=== PATIENT | female | born 2005 | race Hispanic/Latino ===

== ENCOUNTER 2024-03-07 18:14 | Inpatient (IN) | payer BC, OTHER ==
--- OUTSIDE RECORDS SUMMARY | 2024-03-07 18:45 | XMS REPORT | Continuity of Care Document ---
Author Name Unknown Address [address] [facility]. [address] [place] [address] [facility] Address [address] [facility] [address] [place] [address] Care Team Providers Care [employer] Name Role Phone JAMAL HOLCOMB Primary Care Physician Unavailab DAYAN Monzon Attending Clinician Unavailable JAMAL HOLCOMB Attending Clinician Unavailable RADHA TADEO Attending Clinician RADHA Wood Attending Clinician NICOLE Layton Attending Clinician UnavailNICOLE Sanders Attending Clinician UnavailJamal Schroeder Attending Clinician [phone] Dayan Haque MD Attending Clinician [phone] Doctor Unassigned, [place] Attending Clinician U navailable Pob, [facility] Main Attending Clinician UnavailAl Torres MD Attending Clinician [phone] AL PERKINS Attending Clinician Unavailcharly miranda Nurse, [facility] Fam Attending Clinician Unavailable Lab, Ang - Db Attending Clinician Unavailable JESSA FARIAS Attending Clinician Unavailable Jessa Farias PA-C Attending Clinician [phone] JEFFY URENA Attending Clinician Unavailable 2, [facility] Attending Clinician Unavailable Jeffy Salcedo Attending Clinician [phone] [facility] Attending Clinician Unavailable DAYAN HAQUE Admitting Clinician Unavailable Dayan Haque MD Admitting Clinician AL PERKINS Admitting Clinician UnavailJAMAL Lawrence Admitting Clinician Unavailable Payers Payer Name Policy Type Policy Number Effective Date Expirati on Date Source FORMERLY [facility] OUT OF STATE [id number] 2013 00:00:00 Problems Condition Name Condition Details Condition Category Status Onset Date Resolution Date Last Treatment Date Treating Clinician Comments Source Diarrhea, unspecifie d type Diarrhea, unspecifie d type Disease Active 10-07 00:00: 00 [facility] Abdominal pain, generalize d Abdominal pain, generalize d Disease Active 10-07 00:00: 00 [facility] Mixed dyslipidem ia Mixed dyslipidem ia Disease Active 12-27 00:00: 00 [facility] Obesity (BMI 35.0-39.9 without comorbidit y) Obesity (BMI 35.0-39.9 without comorbidit y) Disease Active 12-27 00:00: 00 [facility] Anxiety and depression Anxiety and depression Disease Active 12-27 00:00: 00 [facility] Elevated blood pressure reading Elevated blood pressure reading Disease Active 12-27 00:00: 00 [facility] Tachycardi a Tachycardi a Disease Active 12-27 00:00: 00 [facility] Allergies, Adverse Reactions, Alerts Allergy Name Allergy Type Status Severity Reaction(s) Onset Date Inactive Date Treating Clinician Comments Source NO KNOWN ALLERGIE S Drug Class Active [facility] Social History Social Habit Start Date Stop Date Quantity Comments Source Gender identity [facility] function 2023-12-22 00:00:00 2023-12-22 00:00:00 [facility] Alcohol intake 2023-11-17 00:00:00 2023-11-17 00:00:00 Lifetime non-drinker (finding) [facility] Exposure to SARS-CoV-2 (event) 2023-03-25 00:00:00 2023-04-04 14:41:00 Not sure [facility] History SDOH Alcohol Frequency 2023-04-04 00:00:00 2023-04-04 00:00:00 1 [facility] History SDOH Alcohol Std Drinks 2023-04-04 00:00:00 2023-04-04 00:00:00 0 [facility] SDOH Alcohol Binge 2023-04-04 00:00:00 2023-04-04 00:00:00 1 [facility] SDOH Social Connections Phone 2023-04-04 00:00:00 2023-04-04 00:00:00 5 [facility] SDOH Social Connections Get Together 2023-04-04 00:00:00 2023-04-04 00:00:00 5 [facility] SDOH Social Connections Sikhism 2023-04-04 00:00:00 2023-04-04 00:00:00 1 [facility] SDOH Social Connections Membership 2023-04-04 00:00:00 2023-04-04 00:00:00 2 [facility] SDOH Social Connections Meetings 2023-04-04 00:00:00 2023-04-04 00:00:00 98 [facility] SDOH Social Connections Living 2023-04-04 00:00:00 2023-04-04 00:00:00 98 [facility] SDOH Physical Activity DPW 2023-04-04 00:00:00 2023-04-04 00:00:00 5 [facility] SDOH Physical Activity MPS 2023-04-04 00:00:00 2023-04-04 00:00:00 4 [facility] SDOH Stress 2023-04-04 00:00:00 2023-04-04 00:00:00 3 [facility] SDOH Financial 2023-04-04 00:00:00 2023-04-04 00:00:00 5 [facility] SDOH Food Worry 2023-04-04 00:00:00 2023-04-04 00:00:00 1 [facility] History SDOH Food Scarcity 2023-04-04 00:00:00 2023-04-04 00:00:00 1 [facility] History SDOH Transport Med 2023-04-04 00:00:00 2023-04-04 00:00:00 2 [facility] History SDOH Transport Non-Med 2023-04-04 00:00:00 2023-04-04 00:00:00 2 [facility] History SDOH Housing Unable to Pay 2023-04-04 00:00:00 2023-04-04 00:00:00 2 [facility] History SDOH Housing Places Lived 2023-04-04 00:00:00 2023-04-04 00:00:00 1 [facility] History SDOH Housing Homeless Last Year 2023-04-04 00:00:00 2023-04-04 00:00:00 2 [facility] Tobacco use and exposure 2022-12-11 00:00:00 2022-12-11 00:00:00 Smokeless tobacco non-user [facility] Tobacco Comment 2022-12-11 00:00:00 2022-12-11 00:00:00 Patient states she vapes everyday [facility] Sex Assigned At 2005 00:00:00 2005 00:00:00 [facility] Smoking Status Start Date Stop Date Source Never smoked tobacco [facility] Medications Ordered Medication Name Filled Medication Name Start Date Stop Date Current Medication? Ordering Clinician Indication Dosage Frequency Signature (SIG) Comments Components Source propranoloL 10 mg tablet 01-05 00:00: 00 Yes [id number] 10mg Take 1 tablet by mouth in the morning and 1 tablet in the evening. [facility] simethicone (GAS RELIEF (SIMETHICON E)) 40 mg/0.6 mL drops 12-21 12:06: 00 12-21 12:57 :45 No PRN, Starting on Fri12/22/23 at 0706, Until Fri12/22/23 at 0757, Routine, Intra-op [facility] SERTraline (ZOLOFT) 100 mg tablet - 00:00: 00 Yes [id number] 100mg Take 1 tablet by mouth in the morning. [facility] topiramate 50 mg tablet 11-17 00:00: 00 Yes [id number] 50mg Take 1 tablet by mouth every morning. [facility] busPIRone 10 mg tablet 11-17 00:00: 00 Yes [id number] 10mg Take 1 tablet by mouth every morning and evening. [facility] propranoloL 10 mg tablet 11-17 00:00: 00 01-05 00:00 :00 No [id number] 10mg Take 1 tablet by mouth in the morning and 1 tablet in the evening. [facility] BUSPIRONE 10 mg tablet 10-09 00:00: 00 11-17 00:00 :00 No [id number] 10mg TAKE 1 TABLET BY MOUTH IN THE MORNING AND IN THE EVENING [facility] peg-electro lyte soln 236-22.74-6 .74 -5.86 gram solution 10-07 00:00: 00 12-21 00:00 :00 No [id number] 4000mL Take 4,000 mL by mouth SEE-INSTRU CTIONS. As directed prior to your colonoscop y. [facility] gadobenate dimeglumine (MULTIHANCE -15 mL) injection 0.2 mL/kg 2022-10 14:45: 00 10-03 14:37 :00 No [id number] .2mL/kg 0.2 mL/kg, Intravenou s, ONCE, 1 dose, On Fri10/03/23 at 0845, Routine [facility] busPIRone 10 mg tablet 2022-10 00:00: 00 10-09 00:00 :00 No [id number] 10mg Take 1 tablet by mouth in the morning and 1 tablet in the evening. [facility] gadoteridol (PROHANCE-2 0 mL) injection 0.2 mL/kg 2022-10 18:00: 00 09-09 17:59 :00 No [id number] .2mL/kg 0.2 mL/kg, Intravenou s, ONCE, 1 dose, On Fri09/09/23 at 1200, Routine [facility] gadobenate dimeglumine (MULTIHANCE -20 mL) injection 0.2 mL/kg 2022-10 18:15: 00 09-03 18:08 :00 No [id number] .2mL/kg 0.2 mL/kg, Intravenou s, ONCE, 1 dose, On Fri09/03/23 at 1215, Routine [facility] glucagon (GLUCAGEN DIAGNOSTIC KIT) injection 1 mg 2022-10 17:00: 00 09-03 17:44 :00 No [id number] 1mg 1 mg, Intravenou s, ONCE, 1 dose, On Fri09/03/23 at 1100, Routine [facility] propranoloL 10 mg tablet 2022-10 1-14 00:00: 00 11-17 00:00 :00 No [id number] 10mg Take 1 tablet by mouth in the morning and 1 tablet in the evening. [facility] busPIRone 10 mg tablet 9-20 00:00: 00 09-09 00:00 :00 No [id number] 10mg Take 1 tablet by mouth in the morning and 1 tablet in the evening. [facility] busPIRone 10 mg tablet 8-17 00:00: 00 06-25 00:00 :00 No [id number] 10mg Take 1 tablet by mouth in the morning and 1 tablet in the evening. [facility] topiramate 50 mg tablet 8-11 00:00: 00 11-17 00:00 :00 No [id number] 50mg Take 1 tablet by mouth every morning. [facility] SERTraline (ZOLOFT) 100 mg tablet 8-11 00:00: 00 11-17 00:00 :00 No [id number] 100mg Take 1 tablet by mouth in the morning. [facility] propranoloL 10 mg tablet 8-11 00:00: 00 08-19 00:00 :00 No [id number] 10mg Take 1 tablet by mouth in the morning and 1 tablet in the evening. [facility] busPIRone 10 mg tablet -15 00:00: 00 05-22 00:00 :00 No [id number] 10mg Take 1 tablet by mouth in the morning and 1 tablet in the evening. [facility] naltrexone- bupropion (CONTRAVE) 8-90 mg per tablet 30 00:00: 00 05-16 00:00 :00 No [id number] Start 1 tab PO Q AM x1 week, then 1 tab PO BID x1 week, then 2 tabs PO Q AM and 1 Tab QPM thereafter [facility] NUVARING 0.12-0.015 mg/24 hr vaginal insert 29 00:00: 00 11-17 00:00 :00 No [id number] 1{each} Insert 1 Each into vagina once every month. Insert vaginally and leave in place for 3 consecutiv e weeks, then remove for 1 week. [facility] SERTraline 50 mg tablet 14 00:00: 00 05-16 00:00 :00 No [id number] 50mg Take 1 tablet by mouth every morning. MUST BE SEEN FOR FURTHER REFILLS [facility] busPIRone 10 mg tablet 14 00:00: 00 04-19 00:00 :00 No [id number] 10mg Take 1 tablet by mouth in the morning and 1 tablet in the evening. [facility] propranoloL 10 mg tablet 17 00:00: 00 05-16 00:00 :00 No [id number] 10mg Take 1 tablet by mouth in the morning and 1 tablet in the evening. [facility] TOPIRAMATE 50 mg tablet 15 00:00: 00 05-16 00:00 :00 No [id number] TAKE 1 TABLET BY MOUTH EVERY DAY IN THE MORNING [facility] busPIRone 10 mg tablet 2023-0 5-11 00:00: 00 03-19 00:00 :00 No [id number] 10mg Take 1 tablet by mouth in the morning and 1 tablet in the evening. [facility] semaglutide , weight loss, (WEGOVY) 0.5 mg/0.5 mL PnIj SC injection 01-28 00:00: 00 04-04 00:00 :00 No [id number] .5mg inject 0.5 mg under the skin weekly. [facility] propranoloL 10 mg tablet 01-26 00:00: 00 02-19 00:00 :00 No [id number] 10mg Take 1 tablet by mouth in the morning and 1 tablet in the evening. [facility] SERTraline 50 mg tablet 01-03 00:00: 00 03-19 00:00 :00 No [id number] 50mg Take 1 tablet by mouth every morning. [facility] azithromyci n 500 mg tablet 01-03 00:00: 00 01-05 04:59 :00 No [id number] 1000mg Take 2 tablets by mouth in the morning for 1 day. [facility] NUVARING 0.12-0.015 mg/24 hr vaginal insert 01-02 00:00: 00 04-03 00:00 :00 No [id number] 1{each} Insert 1 Each into vagina once every month. Insert vaginally and leave in place for 3 consecutiv e weeks, then remove for 1 week. [facility] topiramate (TOPAMAX) 50 mg tablet 12-27 00:00: 00 02-17 00:00 :00 No [id number] 50mg Take 1 tablet by mouth in the morning. [facility] semaglutide , weight loss, (WEGOVY) 0.25 mg/0.5 mL PnIj SC injection 12-27 00:00: 00 01-28 00:00 :00 No [id number] .25mg inject 0.25 mg under the skin weekly. [facility] propranoloL 10 mg tablet 3-24 00:00: 00 01-26 00:00 :00 No [id number] 10mg Take 1 tablet by mouth in the morning and 1 tablet in the evening. [facility] SERTRALINE 50 mg tablet 3-06 00:00: 00 01-03 00:00 :00 No [id number] TAKE 1 TABLET BY MOUTH EVERY DAY IN THE MORNING [facility] dicyclomine 20 mg tablet 2-10 00:00: 00 Yes [id number] 20mg Take 1 tablet by mouth 3 (three) times daily as needed for Abdominal pain. [facility] busPIRone 10 mg tablet 2-10 00:00: 00 12-31 04:59 :00 No [id number] 10mg Take 1 tablet by mouth in the morning and 1 tablet in the evening. Do all this for 45 days. [facility] SERTraline (ZOLOFT) 50 mg tablet -10 00:00: 00 12-09 00:00 :00 No [id number] 50mg Take 1 tablet by mouth in the morning. [facility] Immunizations Ordered Immunization Name Filled Immunization Name Date Status Comments Source Influenza Virus Vaccine Quad IM, Preserv and ABX Free 6 MO-64 YRS 2022-11-15 00:00:00 Completed [facility] Influenza Virus Vaccine Quad IM, Preserv and ABX Free 6 MO-64 YRS 2022-11-15 00:00:00 Completed [facility] Influenza Virus Vaccine Quad IM, Preserv and ABX Free 6 MO-64 YRS 2022-11-15 00:00:00 Completed [facility] Influenza Virus Vaccine Quad IM, Preserv and ABX Free 6 MO-64 YRS 2022-11-15 00:00:00 Completed [facility] Influenza Virus Vaccine Quad IM, Preserv and ABX Free 6 MO-64 YRS 2022-11-15 00:00:00 Completed [facility] Influenza Virus Vaccine Quad IM, Preserv and ABX Free 6 MO-64 YRS 2022-11-15 00:00:00 Completed [facility] Influenza Virus Vaccine Quad IM, Preserv and ABX Free 6 MO-64 YRS 2022-11-15 00:00:00 Completed [facility] Influenza Virus Vaccine Quad IM, Preserv and ABX Free 6 MO-64 YRS 2022-11-15 00:00:00 Completed [facility] Influenza Virus Vaccine Quad IM, Preserv and ABX Free 6 MO-64 YRS 2022-11-15 00:00:00 Completed [facility] Influenza Virus Vaccine Quad IM, Preserv and ABX Free 6 MO-64 YRS 2022-11-15 00:00:00 Completed [facility] Influenza Virus Vaccine Quad IM, Preserv and ABX Free 6 MO-64 YRS 2022-11-15 00:00:00 Completed [facility] Influenza Virus Vaccine Quad IM, Preserv and ABX Free 6 MO-64 YRS 2022-11-15 00:00:00 Completed [facility] Influenza Virus Vaccine Quad IM, Preserv and ABX Free 6 MO-64 YRS 2022-11-15 00:00:00 Completed [facility] Influenza Virus Vaccine Quad IM, Preserv and ABX Free 6 MO-64 YRS 2022-11-15 00:00:00 Completed [facility] Influenza Virus Vaccine Quad IM, Preserv and ABX Free 6 MO-64 YRS 2022-11-15 00:00:00 Completed [facility] Influenza Virus Vaccine Quad IM, Preserv and ABX Free 6 MO-64 YRS 2022-11-15 00:00:00 Completed [facility] Influenza Virus Vaccine Quad IM, Preserv and ABX Free 6 MO-64 YRS 2022-11-15 00:00:00 Completed [facility] Influenza Virus Vaccine Quad IM, Preserv and ABX Free 6 MO-64 YRS 2022-11-15 00:00:00 Completed [facility] Influenza Virus Vaccine Quad IM, Preserv and ABX Free 6 MO-64 YRS 2022-11-15 00:00:00 Completed [facility] Influenza Virus Vaccine Quad IM, Preserv and ABX Free 6 MO-64 YRS 2022-11-15 00:00:00 Completed [facility] Influenza Virus Vaccine Quad IM, Preserv and ABX Free 6 MO-64 YRS 2022-11-15 00:00:00 Completed [facility] Influenza Virus Vaccine Quad IM, Preserv and ABX Free 6 MO-64 YRS 2022-11-15 00:00:00 Completed [facility] Influenza Virus Vaccine Quad IM, Preserv and ABX Free 6 MO-64 YRS 2022-11-15 00:00:00 Completed [facility] Influenza Virus Vaccine Quad IM, Preserv and ABX Free 6 MO-64 YRS 2022-11-15 00:00:00 Completed [facility] Influenza Virus Vaccine Quad IM, Preserv and ABX Free 6 MO-64 YRS (FLUCELVAX) 2022-11-15 00:00:00 Completed [facility] Influenza Virus Vaccine Quad IM, Preserv and ABX Free 6 MO-64 YRS 2022-11-15 00:00:00 Completed [facility] Influenza Virus Vaccine Quad IM, Preserv and ABX Free 6 MO-64 YRS 2022-11-15 00:00:00 Completed [facility] Influenza Virus Vaccine Quad IM, Preserv and ABX Free 6 MO-64 YRS 2022-11-15 00:00:00 Completed [facility] Influenza Virus Vaccine Quad IM, Preserv and ABX Free 6 MO-64 YRS 2022-11-15 00:00:00 Completed [facility] Influenza Virus Vaccine Quad IM, Preserv and ABX Free 6 MO-64 YRS 2022-11-15 00:00:00 Completed [facility] Influenza Virus Vaccine Quad IM, Preserv and ABX Free 6 MO-64 YRS 2022-11-15 00:00:00 Completed [facility] Influenza Virus Vaccine Quad IM, Preserv and ABX Free 6 MO-64 YRS 2022-11-15 00:00:00 Completed [facility] Influenza Virus Vaccine Quad IM, Preserv and ABX Free 6 MO-64 YRS 2022-11-15 00:00:00 Completed [facility] Influenza Virus Vaccine Quad IM, Preserv and ABX Free 6 MO-64 YRS 2022-11-15 00:00:00 Completed [facility] Influenza Virus Vaccine Quad IM, Preserv and ABX Free 6 MO-64 YRS 2022-11-15 00:00:00 Completed [facility] Influenza Virus Vaccine Quad IM, Preserv and ABX Free 6 MO-64 YRS 2022-11-15 00:00:00 Completed [facility] Influenza Virus Vaccine Quad IM, Preserv and ABX Free 6 MO-64 YRS 2022-11-15 00:00:00 Completed [facility] Influenza Virus Vaccine Quad IM, Preserv and ABX Free 6 MO-64 YRS 2022-11-15 00:00:00 Completed [facility] Influenza Virus Vaccine Quad IM, Preserv and ABX Free 6 MO-64 YRS 2022-11-15 00:00:00 Completed [facility] Influenza Virus Vaccine Quad IM, Preserv and ABX Free 6 MO-64 YRS 2022-11-15 00:00:00 Completed [facility] Influenza Virus Vaccine Quad IM, Preserv and ABX Free 6 MO-64 YRS 2022-11-15 00:00:00 Completed [facility] Influenza Virus Vaccine Quad IM, Preserv and ABX Free 6 MO-64 YRS 2022-11-15 00:00:00 Completed [facility] Influenza Virus Vaccine Quad IM, Preserv and ABX Free 6 MO-64 YRS 2022-11-15 00:00:00 Completed [facility] Influenza Virus Vaccine Quad IM, Preserv and ABX Free 6 MO-64 YRS 2022-11-15 00:00:00 Completed [facility] SARS-COV-2 COVID-19 PFIZER VACCINE 2021-09-25 00:00:00 Completed [facility] SARS-COV-2 COVID-19 PFIZER VACCINE 2021-09-25 00:00:00 Completed [facility] SARS-COV-2 COVID-19 PFIZER VACCINE 2021-09-25 00:00:00 Completed [facility] SARS-COV-2 COVID-19 PFIZER VACCINE 2021-09-25 00:00:00 Completed [facility] SARS-COV-2 COVID-19 PFIZER VACCINE 2021-09-25 00:00:00 Completed [facility] SARS-COV-2 COVID-19 PFIZER VACCINE 2021-09-25 00:00:00 Completed [facility] SARS-COV-2 COVID-19 PFIZER VACCINE 2021-09-25 00:00:00 Completed [facility] SARS-COV-2 COVID-19 PFIZER VACCINE 2021-09-25 00:00:00 Completed [facility] SARS-COV-2 COVID-19 PFIZER VACCINE 2021-09-25 00:00:00 Completed [facility] SARS-COV-2 COVID-19 PFIZER VACCINE 2021-09-25 00:00:00 Completed [facility] SARS-COV-2 COVID-19 PFIZER VACCINE 2021-09-25 00:00:00 Completed [facility] SARS-COV-2 COVID-19 PFIZER VACCINE 2021-09-25 00:00:00 Completed [facility] SARS-COV-2 COVID-19 PFIZER VACCINE 2021-09-25 00:00:00 Completed [facility] SARS-COV-2 COVID-19 PFIZER VACCINE 2021-09-25 00:00:00 Completed [facility] SARS-COV-2 COVID-19 PFIZER VACCINE 2021-09-25 00:00:00 Completed [facility] SARS-COV-2 COVID-19 PFIZER VACCINE 2021-09-25 00:00:00 Completed [facility] SARS-COV-2 COVID-19 PFIZER VACCINE 2021-09-25 00:00:00 Completed [facility] SARS-COV-2 COVID-19 PFIZER VACCINE 2021-09-25 00:00:00 Completed [facility] SARS-COV-2 COVID-19 PFIZER VACCINE 2021-09-25 00:00:00 Completed [facility] SARS-COV-2 COVID-19 PFIZER VACCINE 2021-09-25 00:00:00 Completed [facility] SARS-COV-2 COVID-19 PFIZER VACCINE 2021-09-25 00:00:00 Completed [facility] SARS-COV-2 COVID-19 PFIZER VACCINE 2021-09-25 00:00:00 Completed [facility] SARS-COV-2 COVID-19 PFIZER VACCINE 2021-09-25 00:00:00 Completed [facility] SARS-COV-2 COVID-19 PFIZER VACCINE 2021-09-25 00:00:00 Completed [facility] SARS-COV-2 COVID-19 PFIZER VACCINE 2021-09-25 00:00:00 Completed [facility] SARS-COV-2 COVID-19 PFIZER VACCINE 2021-09-25 00:00:00 Completed [facility] SARS-COV-2 COVID-19 PFIZER VACCINE 2021-09-25 00:00:00 Completed [facility] SARS-COV-2 COVID-19 PFIZER VACCINE 2021-09-25 00:00:00 Completed [facility] SARS-COV-2 COVID-19 PFIZER VACCINE 2021-09-25 00:00:00 Completed [facility] SARS-COV-2 COVID-19 PFIZER VACCINE 2021-09-25 00:00:00 Completed [facility] SARS-COV-2 COVID-19 PFIZER VACCINE 2021-09-25 00:00:00 Completed [facility] SARS-COV-2 COVID-19 PFIZER VACCINE 2021-09-25 00:00:00 Completed [facility] SARS-COV-2 COVID-19 PFIZER VACCINE 2021-09-25 00:00:00 Completed [facility] SARS-COV-2 COVID-19 PFIZER VACCINE 2021-09-25 00:00:00 Completed [facility] SARS-COV-2 COVID-19 PFIZER VACCINE 2021-09-25 00:00:00 Completed [facility] SARS-COV-2 COVID-19 PFIZER VACCINE 2021-09-25 00:00:00 Completed [facility] SARS-COV-2 COVID-19 PFIZER VACCINE 2021-09-25 00:00:00 Completed [facility] SARS-COV-2 COVID-19 PFIZER VACCINE 2021-09-25 00:00:00 Completed [facility] SARS-COV-2 COVID-19 PFIZER VACCINE 2021-09-25 00:00:00 Completed [facility] SARS-COV-2 COVID-19 PFIZER VACCINE 2021-09-25 00:00:00 Completed [facility] SARS-COV-2 COVID-19 PFIZER VACCINE 2021-09-25 00:00:00 Completed [facility] SARS-COV-2 COVID-19 PFIZER VACCINE 2021-09-25 00:00:00 Completed [facility] SARS-COV-2 COVID-19 PFIZER VACCINE 2021-09-25 00:00:00 Completed [facility] SARS-COV-2 COVID-19 PFIZER VACCINE 2021-09-25 00:00:00 Completed [facility] Influenza Virus Vaccine Quad .5 mL IM 6+ MO 2021-08-25 00:00:00 Completed [facility] Influenza Virus Vaccine Quad .5 mL IM 6+ MO 2021-08-25 00:00:00 Completed [facility] Influenza Virus Vaccine Quad .5 mL IM 6+ MO 2021-08-25 00:00:00 Completed [facility] Influenza Virus Vaccine Quad .5 mL IM 6+ MO 2021-08-25 00:00:00 Completed [facility] Influenza Virus Vaccine Quad .5 mL IM 6+ MO 2021-08-25 00:00:00 Completed [facility] Influenza Virus Vaccine Quad .5 mL IM 6+ MO 2021-08-25 00:00:00 Completed [facility] Influenza Virus Vaccine Quad .5 mL IM 6+ MO 2021-08-25 00:00:00 Completed [facility] Influenza Virus Vaccine Quad .5 mL IM 6+ MO 2021-08-25 00:00:00 Completed [facility] Influenza Virus Vaccine Quad .5 mL IM 6+ MO 2021-08-25 00:00:00 Completed [facility] Influenza Virus Vaccine Quad .5 mL IM 6+ MO 2021-08-25 00:00:00 Completed [facility] Influenza Virus Vaccine Quad .5 mL IM 6+ MO 2021-08-25 00:00:00 Completed [facility] Influenza Virus Vaccine Quad .5 mL IM 6+ MO 2021-08-25 00:00:00 Completed [facility] Influenza Virus Vaccine Quad .5 mL IM 6+ MO 2021-08-25 00:00:00 Completed [facility] [facility] Influenza Virus Vaccine Quad .5 mL IM 6+ MO 2021-08-25 00:00:00 Completed [facility] Influenza Virus Vaccine Quad .5 mL IM 6+ MO 2021-08-25 00:00:00 Completed [facility] Influenza Virus Vaccine Quad .5 mL IM 6+ MO 2021-08-25 00:00:00 Completed [facility] Influenza Virus Vaccine Quad .5 mL IM 6+ MO 2021-08-25 00:00:00 Completed [facility] Influenza Virus Vaccine Quad .5 mL IM 6+ MO 2021-08-25 00:00:00 Completed [facility] Influenza Virus Vaccine Quad .5 mL IM 6+ MO 2021-08-25 00:00:00 Completed [facility] Influenza Virus Vaccine Quad .5 mL IM 6+ MO 2021-08-25 00:00:00 Completed [facility] Influenza Virus Vaccine Quad .5 mL IM 6+ MO 2021-08-25 00:00:00 Completed [facility] Influenza Virus Vaccine Quad .5 mL IM 6+ MO 2021-08-25 00:00:00 Completed [facility] Influenza Virus Vaccine Quad .5 mL IM 6+ MO 2021-08-25 00:00:00 Completed [facility] Influenza Virus Vaccine Quad .5 mL IM 6+ MO 2021-08-25 00:00:00 Completed [facility] Influenza Virus Vaccine Quad .5 mL IM 6+ MO (FLUZONE/FLULAVAL/F LUARIX) 2021-08-25 00:00:00 Completed [facility] Influenza Virus Vaccine Quad .5 mL IM 6+ MO 2021-08-25 00:00:00 Completed [facility] Influenza Virus Vaccine Quad .5 mL IM 6+ MO 2021-08-25 00:00:00 Completed [facility] Influenza Virus Vaccine Quad .5 mL IM 6+ MO 2021-08-25 00:00:00 Completed [facility] Influenza Virus Vaccine Quad .5 mL IM 6+ MO 2021-08-25 00:00:00 Completed [facility] Influenza Virus Vaccine Quad .5 mL IM 6+ MO 2021-08-25 00:00:00 Completed [facility] Influenza Virus Vaccine Quad .5 mL IM 6+ MO 2021-08-25 00:00:00 Completed [facility] Influenza Virus Vaccine Quad .5 mL IM 6+ MO 2021-08-25 00:00:00 Completed [facility] Influenza Virus Vaccine Quad .5 mL IM 6+ MO 2021-08-25 00:00:00 Completed [facility] Influenza Virus Vaccine Quad .5 mL IM 6+ MO 2021-08-25 00:00:00 Completed [facility] Influenza Virus Vaccine Quad .5 mL IM 6+ MO 2021-08-25 00:00:00 Completed [facility] Influenza Virus Vaccine Quad .5 mL IM 6+ MO 2021-08-25 00:00:00 Completed [facility] Influenza Virus Vaccine Quad .5 mL IM 6+ MO 2021-08-25 00:00:00 Completed [facility] Influenza Virus Vaccine Quad .5 mL IM 6+ MO 2021-08-25 00:00:00 Completed [facility] Influenza Virus Vaccine Quad .5 mL IM 6+ MO 2021-08-25 00:00:00 Completed [facility] Influenza Virus Vaccine Quad .5 mL IM 6+ MO 2021-08-25 00:00:00 Completed [facility] Influenza Virus Vaccine Quad .5 mL IM 6+ MO 2021-08-25 00:00:00 Completed [facility] Influenza Virus Vaccine Quad .5 mL IM 6+ MO 2021-08-25 00:00:00 Completed [facility] Influenza Virus Vaccine Quad .5 mL IM 6+ MO 2021-08-25 00:00:00 Completed [facility] Influenza Virus Vaccine Quad .5 mL IM 6+ MO 2021-08-25 00:00:00 Completed [facility] SARS-COV-2 COVID-19 PFIZER VACCINE 2021-02-12 00:00:00 Completed [facility] SARS-COV-2 COVID-19 PFIZER VACCINE 2021-02-12 00:00:00 Completed [facility] SARS-COV-2 COVID-19 PFIZER VACCINE 2021-02-12 00:00:00 Completed [facility] SARS-COV-2 COVID-19 PFIZER VACCINE 2021-02-12 00:00:00 Completed [facility] SARS-COV-2 COVID-19 PFIZER VACCINE 2021-02-12 00:00:00 Completed [facility] SARS-COV-2 COVID-19 PFIZER VACCINE 2021-02-12 00:00:00 Completed [facility] SARS-COV-2 COVID-19 PFIZER VACCINE 2021-02-12 00:00:00 Completed [facility] SARS-COV-2 COVID-19 PFIZER VACCINE 2021-02-12 00:00:00 Completed [facility] SARS-COV-2 COVID-19 PFIZER VACCINE 2021-02-12 00:00:00 Completed [facility] SARS-COV-2 COVID-19 PFIZER VACCINE 2021-02-12 00:00:00 Completed [facility] SARS-COV-2 COVID-19 PFIZER VACCINE 2021-02-12 00:00:00 Completed [facility] SARS-COV-2 COVID-19 PFIZER VACCINE 2021-02-12 00:00:00 Completed [facility] SARS-COV-2 COVID-19 PFIZER VACCINE 2021-02-12 00:00:00 Completed [facility] SARS-COV-2 COVID-19 PFIZER VACCINE 2021-02-12 00:00:00 Completed [facility] SARS-COV-2 COVID-19 PFIZER VACCINE 2021-02-12 00:00:00 Completed [facility] SARS-COV-2 COVID-19 PFIZER VACCINE 2021-02-12 00:00:00 Completed [facility] SARS-COV-2 COVID-19 PFIZER VACCINE 2021-02-12 00:00:00 Completed [facility] SARS-COV-2 COVID-19 PFIZER VACCINE 2021-02-12 00:00:00 Completed [facility] SARS-COV-2 COVID-19 PFIZER VACCINE 2021-02-12 00:00:00 Completed [facility] SARS-COV-2 COVID-19 PFIZER VACCINE 2021-02-12 00:00:00 Completed [facility] SARS-COV-2 COVID-19 PFIZER VACCINE 2021-02-12 00:00:00 Completed [facility] SARS-COV-2 COVID-19 PFIZER VACCINE 2021-02-12 00:00:00 Completed [facility] SARS-COV-2 COVID-19 PFIZER VACCINE 2021-02-12 00:00:00 Completed [facility] SARS-COV-2 COVID-19 PFIZER VACCINE 2021-02-12 00:00:00 Completed [facility] SARS-COV-2 COVID-19 PFIZER VACCINE 2021-02-12 00:00:00 Completed [facility] SARS-COV-2 COVID-19 PFIZER VACCINE 2021-02-12 00:00:00 Completed [facility] SARS-COV-2 COVID-19 PFIZER VACCINE 2021-02-12 00:00:00 Completed [facility] SARS-COV-2 COVID-19 PFIZER VACCINE 2021-02-12 00:00:00 Completed [facility] SARS-COV-2 COVID-19 PFIZER VACCINE 2021-02-12 00:00:00 Completed [facility] SARS-COV-2 COVID-19 PFIZER VACCINE 2021-02-12 00:00:00 Completed [facility] SARS-COV-2 COVID-19 PFIZER VACCINE 2021-02-12 00:00:00 Completed [facility] SARS-COV-2 COVID-19 PFIZER VACCINE 2021-02-12 00:00:00 Completed [facility] SARS-COV-2 COVID-19 PFIZER VACCINE 2021-02-12 00:00:00 Completed [facility] SARS-COV-2 COVID-19 PFIZER VACCINE 2021-02-12 00:00:00 Completed [facility] SARS-COV-2 COVID-19 PFIZER VACCINE 2021-02-12 00:00:00 Completed [facility] SARS-COV-2 COVID-19 PFIZER VACCINE 2021-02-12 00:00:00 Completed [facility] SARS-COV-2 COVID-19 PFIZER VACCINE 2021-02-12 00:00:00 Completed [facility] SARS-COV-2 COVID-19 PFIZER VACCINE 2021-02-12 00:00:00 Completed [facility] SARS-COV-2 COVID-19 PFIZER VACCINE 2021-02-12 00:00:00 Completed [facility] SARS-COV-2 COVID-19 PFIZER VACCINE 2021-02-12 00:00:00 Completed [facility] SARS-COV-2 COVID-19 PFIZER VACCINE 2021-02-12 00:00:00 Completed [facility] SARS-COV-2 COVID-19 PFIZER VACCINE 2021-02-12 00:00:00 Completed [facility] SARS-COV-2 COVID-19 PFIZER VACCINE 2021-02-12 00:00:00 Completed [facility] SARS-COV-2 COVID-19 PFIZER VACCINE 2021-02-12 00:00:00 Completed [facility] SARS-COV-2 COVID-19 PFIZER VACCINE 2021-01-20 00:00:00 Completed [facility] SARS-COV-2 COVID-19 PFIZER VACCINE 2021-01-20 00:00:00 Completed [facility] SARS-COV-2 COVID-19 PFIZER VACCINE 2021-01-20 00:00:00 Completed [facility] SARS-COV-2 COVID-19 PFIZER VACCINE 2021-01-20 00:00:00 Completed [facility] SARS-COV-2 COVID-19 PFIZER VACCINE 2021-01-20 00:00:00 Completed [facility] SARS-COV-2 COVID-19 PFIZER VACCINE 2021-01-20 00:00:00 Completed [facility] SARS-COV-2 COVID-19 PFIZER VACCINE 2021-01-20 00:00:00 Completed [facility] SARS-COV-2 COVID-19 PFIZER VACCINE 2021-01-20 00:00:00 Completed [facility] SARS-COV-2 COVID-19 PFIZER VACCINE 2021-01-20 00:00:00 Completed [facility] SARS-COV-2 COVID-19 PFIZER VACCINE 2021-01-20 00:00:00 Completed [facility] SARS-COV-2 COVID-19 PFIZER VACCINE 2021-01-20 00:00:00 Completed [facility] SARS-COV-2 COVID-19 PFIZER VACCINE 2021-01-20 00:00:00 Completed [facility] SARS-COV-2 COVID-19 PFIZER VACCINE 2021-01-20 00:00:00 Completed [facility] SARS-COV-2 COVID-19 PFIZER VACCINE 2021-01-20 00:00:00 Completed [facility] SARS-COV-2 COVID-19 PFIZER VACCINE 2021-01-20 00:00:00 Completed [facility] SARS-COV-2 COVID-19 PFIZER VACCINE 2021-01-20 00:00:00 Completed [facility] SARS-COV-2 COVID-19 PFIZER VACCINE 2021-01-20 00:00:00 Completed [facility] SARS-COV-2 COVID-19 PFIZER VACCINE 2021-01-20 00:00:00 Completed [facility] SARS-COV-2 COVID-19 PFIZER VACCINE 2021-01-20 00:00:00 Completed [facility] SARS-COV-2 COVID-19 PFIZER VACCINE 2021-01-20 00:00:00 Completed [facility] SARS-COV-2 COVID-19 PFIZER VACCINE 2021-01-20 00:00:00 Completed [facility] SARS-COV-2 COVID-19 PFIZER VACCINE 2021-01-20 00:00:00 Completed [facility] SARS-COV-2 COVID-19 PFIZER VACCINE 2021-01-20 00:00:00 Completed [facility] SARS-COV-2 COVID-19 PFIZER VACCINE 2021-01-20 00:00:00 Completed [facility] SARS-COV-2 COVID-19 PFIZER VACCINE 2021-01-20 00:00:00 Completed [facility] SARS-COV-2 COVID-19 PFIZER VACCINE 2021-01-20 00:00:00 Completed [facility] SARS-COV-2 COVID-19 PFIZER VACCINE 2021-01-20 00:00:00 Completed [facility] SARS-COV-2 COVID-19 PFIZER VACCINE 2021-01-20 00:00:00 Completed [facility] SARS-COV-2 COVID-19 PFIZER VACCINE 2021-01-20 00:00:00 Completed [facility] SARS-COV-2 COVID-19 PFIZER VACCINE 2021-01-20 00:00:00 Completed [facility] SARS-COV-2 COVID-19 PFIZER VACCINE 2021-01-20 00:00:00 Completed [facility] SARS-COV-2 COVID-19 PFIZER VACCINE 2021-01-20 00:00:00 Completed [facility] SARS-COV-2 COVID-19 PFIZER VACCINE 2021-01-20 00:00:00 Completed [facility] SARS-COV-2 COVID-19 PFIZER VACCINE 2021-01-20 00:00:00 Completed [facility] SARS-COV-2 COVID-19 PFIZER VACCINE 2021-01-20 00:00:00 Completed [facility] SARS-COV-2 COVID-19 PFIZER VACCINE 2021-01-20 00:00:00 Completed [facility] SARS-COV-2 COVID-19 PFIZER VACCINE 2021-01-20 00:00:00 Completed [facility] SARS-COV-2 COVID-19 PFIZER VACCINE 2021-01-20 00:00:00 Completed [facility] SARS-COV-2 COVID-19 PFIZER VACCINE 2021-01-20 00:00:00 Completed [facility] SARS-COV-2 COVID-19 PFIZER VACCINE 2021-01-20 00:00:00 Completed [facility] SARS-COV-2 COVID-19 PFIZER VACCINE 2021-01-20 00:00:00 Completed [facility] SARS-COV-2 COVID-19 PFIZER VACCINE 2021-01-20 00:00:00 Completed [facility] SARS-COV-2 COVID-19 PFIZER VACCINE 2021-01-20 00:00:00 Completed [facility] SARS-COV-2 COVID-19 PFIZER VACCINE 2021-01-20 00:00:00 Completed [facility] Influenza Virus Vaccine - Whole 2011-10-02 00:00:00 Completed [facility] Influenza Virus Vaccine - Whole 2011-10-02 00:00:00 Completed [facility] Influenza Virus Vaccine - Whole 2011-10-02 00:00:00 Completed [facility] Influenza Virus Vaccine - Whole 2011-10-02 00:00:00 Completed [facility] Influenza Virus Vaccine - Whole 2011-10-02 00:00:00 Completed [facility] Influenza Virus Vaccine - Whole 2011-10-02 00:00:00 Completed [facility] Influenza Virus Vaccine - Whole 2011-10-02 00:00:00 Completed [facility] Influenza Virus Vaccine - Whole 2011-10-02 00:00:00 Completed [facility] Influenza Virus Vaccine - Whole 2011-10-02 00:00:00 Completed [facility] Influenza Virus Vaccine - Whole 2011-10-02 00:00:00 Completed [facility] Influenza Virus Vaccine - Whole 2011-10-02 00:00:00 Completed [facility] Influenza Virus Vaccine - Whole 2011-10-02 00:00:00 Completed [facility] Influenza Virus Vaccine - Whole 2011-10-02 00:00:00 Completed [facility] Influenza Virus Vaccine - Whole 2011-10-02 00:00:00 Completed [facility] Influenza Virus Vaccine - Whole 2011-10-02 00:00:00 Completed [facility] Influenza Virus Vaccine - Whole 2011-10-02 00:00:00 Completed [facility] Influenza Virus Vaccine - Whole 2011-10-02 00:00:00 Completed [facility] Influenza Virus Vaccine - Whole 2011-10-02 00:00:00 Completed [facility] Influenza Virus Vaccine - Whole 2011-10-02 00:00:00 Completed [facility] Influenza Virus Vaccine - Whole 2011-10-02 00:00:00 Completed [facility] Influenza Virus Vaccine - Whole 2011-10-02 00:00:00 Completed [facility] Influenza Virus Vaccine - Whole 2011-10-02 00:00:00 Completed [facility] Influenza Virus Vaccine - Whole 2011-10-02 00:00:00 Completed [facility] Influenza Virus Vaccine - Whole 2011-10-02 00:00:00 Completed [facility] Influenza Virus Vaccine - Whole 2011-10-02 00:00:00 Completed [facility] Influenza Virus Vaccine - Whole 2011-10-02 00:00:00 Completed [facility] Influenza Virus Vaccine - Whole 2011-10-02 00:00:00 Completed [facility] Influenza Virus Vaccine - Whole 2011-10-02 00:00:00 Completed [facility] Influenza Virus Vaccine - Whole 2011-10-02 00:00:00 Completed [facility] Influenza Virus Vaccine - Whole 2011-10-02 00:00:00 Completed [facility] Influenza Virus Vaccine - Whole 2011-10-02 00:00:00 Completed [facility] Influenza Virus Vaccine - Whole 2011-10-02 00:00:00 Completed [facility] Influenza Virus Vaccine - Whole 2011-10-02 00:00:00 Completed [facility] Influenza Virus Vaccine - Whole 2011-10-02 00:00:00 Completed [facility] Influenza Virus Vaccine - Whole 2011-10-02 00:00:00 Completed [facility] Influenza Virus Vaccine - Whole 2011-10-02 00:00:00 Completed [facility] Influenza Virus Vaccine - Whole 2011-10-02 00:00:00 Completed [facility] Influenza Virus Vaccine - Whole 2011-10-02 00:00:00 Completed [facility] Influenza Virus Vaccine - Whole 2011-10-02 00:00:00 Completed [facility] Influenza Virus Vaccine - Whole 2011-10-02 00:00:00 Completed [facility] Influenza Virus Vaccine - Whole 2011-10-02 00:00:00 Completed [facility] Influenza Virus Vaccine - Whole 2011-10-02 00:00:00 Completed [facility] Influenza Virus Vaccine - Whole 2011-10-02 00:00:00 Completed [facility] Influenza Virus Vaccine - Whole 2011-10-02 00:00:00 Completed [facility] HEPATITIS A 2008-11-01 00:00:00 Completed [facility] MMR 2008-11-01 00:00:00 Completed [facility] MMR 2008-11-01 00:00:00 Completed [facility] Varicella (varivax)(chicken pox) 2008-11-01 00:00:00 Completed [facility] Dtap/ipv 2008-11-01 00:00:00 Completed [facility] HEPATITIS A 2008-11-01 00:00:00 Completed [facility] MMR 2008-11-01 00:00:00 Completed [facility] Varicella (varivax)(chicken pox) 2008-11-01 00:00:00 Completed [facility] Varicella (varivax)(chicken pox) 2008-11-01 00:00:00 Completed [facility] Dtap/ipv 2008-11-01 00:00:00 Completed [facility] HEPATITIS A 2008-11-01 00:00:00 Completed [facility] MMR 2008-11-01 00:00:00 Completed [facility] Varicella (varivax)(chicken pox) 2008-11-01 00:00:00 Completed [facility] Dtap/ipv 2008-11-01 00:00:00 Completed [facility] HEPATITIS A 2008-11-01 00:00:00 Completed [facility] MMR 2008-11-01 00:00:00 Completed [facility] Varicella (varivax)(chicken pox) 2008-11-01 00:00:00 Completed [facility] Dtap/ipv 2008-11-01 00:00:00 Completed [facility] HEPATITIS A 2008-11-01 00:00:00 Completed [facility] MMR 2008-11-01 00:00:00 Completed [facility] Varicella (varivax)(chicken pox) 2008-11-01 00:00:00 Completed [facility] Dtap/ipv 2008-11-01 00:00:00 Completed [facility] Dtap/ipv 2008-11-01 00:00:00 Completed [facility] HEPATITIS A 2008-11-01 00:00:00 Completed [facility] MMR 2008-11-01 00:00:00 Completed [facility] Varicella (varivax)(chicken pox) 2008-11-01 00:00:00 Completed [facility] HEPATITIS A 2008-11-01 00:00:00 Completed [facility] Dtap/ipv 2008-11-01 00:00:00 Completed [facility] HEPATITIS A 2008-11-01 00:00:00 Completed [facility] MMR 2008-11-01 00:00:00 Completed [facility] Varicella (varivax)(chicken pox) 2008-11-01 00:00:00 Completed [facility] MMR 2008-11-01 00:00:00 Completed [facility] Varicella (varivax)(chicken pox) 2008-11-01 00:00:00 Completed [facility] Dtap/ipv 2008-11-01 00:00:00 Completed [facility] HEPATITIS A 2008-11-01 00:00:00 Completed [facility] MMR 2008-11-01 00:00:00 Completed [facility] Varicella (varivax)(chicken pox) 2008-11-01 00:00:00 Completed [facility] Dtap/ipv 2008-11-01 00:00:00 Completed [facility] HEPATITIS A 2008-11-01 00:00:00 Completed [facility] MMR 2008-11-01 00:00:00 Completed [facility] Varicella (varivax)(chicken pox) 2008-11-01 00:00:00 Completed [facility] Dtap/ipv 2008-11-01 00:00:00 Completed [facility] HEPATITIS A 2008-11-01 00:00:00 Completed [facility] MMR 2008-11-01 00:00:00 Completed [facility] Varicella (varivax)(chicken pox) 2008-11-01 00:00:00 Completed [facility] Dtap/ipv 2008-11-01 00:00:00 Completed [facility] HEPATITIS A 2008-11-01 00:00:00 Completed [facility] Dtap/ipv 2008-11-01 00:00:00 Completed [facility] MMR 2008-11-01 00:00:00 Completed [facility] Varicella (varivax)(chicken pox) 2008-11-01 00:00:00 Completed [facility] Dtap/ipv 2008-11-01 00:00:00 Completed [facility] HEPATITIS A 2008-11-01 00:00:00 Completed [facility] MMR 2008-11-01 00:00:00 Completed [facility] Varicella (varivax)(chicken pox) 2008-11-01 00:00:00 Completed [facility] HEPATITIS A 2008-11-01 00:00:00 Completed [facility] Dtap/ipv 2008-11-01 00:00:00 Completed [facility] HEPATITIS A 2008-11-01 00:00:00 Completed [facility] MMR 2008-11-01 00:00:00 Completed [facility] Varicella (varivax)(chicken pox) 2008-11-01 00:00:00 Completed [facility] Dtap/ipv 2008-11-01 00:00:00 Completed [facility] MMR 2008-11-01 00:00:00 Completed [facility] HEPATITIS A 2008-11-01 00:00:00 Completed [facility] MMR 2008-11-01 00:00:00 Completed [facility] Varicella (varivax)(chicken pox) 2008-11-01 00:00:00 Completed [facility] Dtap/ipv 2008-11-01 00:00:00 Completed [facility] HEPATITIS A 2008-11-01 00:00:00 Completed [facility] MMR 2008-11-01 00:00:00 Completed [facility] Varicella (varivax)(chicken pox) 2008-11-01 00:00:00 Completed [facility] Varicella (varivax)(chicken pox) 2008-11-01 00:00:00 Completed [facility] Dtap/ipv 2008-11-01 00:00:00 Completed [facility] HEPATITIS A 2008-11-01 00:00:00 Completed [facility] MMR 2008-11-01 00:00:00 Completed [facility] Varicella (varivax)(chicken pox) 2008-11-01 00:00:00 Completed [facility] Dtap/ipv 2008-11-01 00:00:00 Completed [facility] HEPATITIS A 2008-11-01 00:00:00 Completed [facility] MMR 2008-11-01 00:00:00 Completed [facility] Varicella (varivax)(chicken pox) 2008-11-01 00:00:00 Completed [facility] Dtap/ipv 2008-11-01 00:00:00 Completed [facility] HEPATITIS A 2008-11-01 00:00:00 Completed [facility] MMR 2008-11-01 00:00:00 Completed [facility] Varicella (varivax)(chicken pox) 2008-11-01 00:00:00 Completed [facility] Dtap/ipv 2008-11-01 00:00:00 Completed [facility] HEPATITIS A 2008-11-01 00:00:00 Completed [facility] MMR 2008-11-01 00:00:00 Completed [facility] Varicella (varivax)(chicken pox) 2008-11-01 00:00:00 Completed [facility] Dtap/ipv 2008-11-01 00:00:00 Completed [facility] HEPATITIS A 2008-11-01 00:00:00 Completed [facility] MMR 2008-11-01 00:00:00 Completed [facility] Varicella (varivax)(chicken pox) 2008-11-01 00:00:00 Completed [facility] Dtap/ipv 2008-11-01 00:00:00 Completed [facility] Dtap/ipv 2008-11-01 00:00:00 Completed [facility] HEPATITIS A 2008-11-01 00:00:00 Completed [facility] MMR 2008-11-01 00:00:00 Completed [facility] Varicella (varivax)(chicken pox) 2008-11-01 00:00:00 Completed [facility] Dtap/ipv 2008-11-01 00:00:00 Completed [facility] HEPATITIS A 2008-11-01 00:00:00 Completed [facility] MMR 2008-11-01 00:00:00 Completed [facility] Varicella (varivax)(chicken pox) 2008-11-01 00:00:00 Completed [facility] HEPATITIS A 2008-11-01 00:00:00 Completed [facility] Dtap/ipv 2008-11-01 00:00:00 Completed [facility] HEPATITIS A 2008-11-01 00:00:00 Completed [facility] MMR 2008-11-01 00:00:00 Completed [facility] Varicella (varivax)(chicken pox) 2008-11-01 00:00:00 Completed [facility] MMR 2008-11-01 00:00:00 Completed [facility] Dtap/ipv 2008-11-01 00:00:00 Completed [facility] HEPATITIS A 2008-11-01 00:00:00 Completed [facility] MMR 2008-11-01 00:00:00 Completed [facility] Varicella (varivax)(chicken pox) 2008-11-01 00:00:00 Completed [facility] Dtap/ipv 2008-11-01 00:00:00 Completed [facility] HEPATITIS A 2008-11-01 00:00:00 Completed [facility] MMR 2008-11-01 00:00:00 Completed [facility] Varicella (varivax)(chicken pox) 2008-11-01 00:00:00 Completed [facility] [facility] Varicella (varivax)(chicken pox) 2008-11-01 00:00:00 Completed [facility] Dtap/ipv 2008-11-01 00:00:00 Completed [facility] HEPATITIS A 2008-11-01 00:00:00 Completed [facility] MMR 2008-11-01 00:00:00 Completed [facility] Varicella (varivax)(chicken pox) 2008-11-01 00:00:00 Completed [facility] Dtap/ipv 2008-11-01 00:00:00 Completed [facility] HEPATITIS A 2008-11-01 00:00:00 Completed [facility] MMR 2008-11-01 00:00:00 Completed [facility] Varicella (varivax)(chicken pox) 2008-11-01 00:00:00 Completed [facility] Dtap/ipv 2008-11-01 00:00:00 Completed [facility] HEPATITIS A 2008-11-01 00:00:00 Completed [facility] MMR 2008-11-01 00:00:00 Completed [facility] Varicella (varivax)(chicken pox) 2008-11-01 00:00:00 Completed [facility] Dtap/ipv 2008-11-01 00:00:00 Completed [facility] HEPATITIS A 2008-11-01 00:00:00 Completed [facility] MMR 2008-11-01 00:00:00 Completed [facility] Dtap/ipv 2008-11-01 00:00:00 Completed [facility] Varicella (varivax)(chicken pox) 2008-11-01 00:00:00 Completed [facility] Dtap/ipv 2008-11-01 00:00:00 Completed [facility] HEPATITIS A 2008-11-01 00:00:00 Completed [facility] MMR 2008-11-01 00:00:00 Completed [facility] Varicella (varivax)(chicken pox) 2008-11-01 00:00:00 Completed [facility] HEPATITIS A 2008-11-01 00:00:00 Completed [facility] Dtap/ipv 2008-11-01 00:00:00 Completed [facility] HEPATITIS A 2008-11-01 00:00:00 Completed [facility] MMR 2008-11-01 00:00:00 Completed [facility] Varicella (varivax)(chicken pox) 2008-11-01 00:00:00 Completed [facility] Dtap/ipv 2008-11-01 00:00:00 Completed [facility] HEPATITIS A 2008-11-01 00:00:00 Completed [facility] MMR 2008-11-01 00:00:00 Completed [facility] Varicella (varivax)(chicken pox) 2008-11-01 00:00:00 Completed [facility] MMR 2008-11-01 00:00:00 Completed [facility] Dtap/ipv 2008-11-01 00:00:00 Completed [facility] HEPATITIS A 2008-11-01 00:00:00 Completed [facility] MMR 2008-11-01 00:00:00 Completed [facility] Varicella (varivax)(chicken pox) 2008-11-01 00:00:00 Completed [facility] Dtap/ipv 2008-11-01 00:00:00 Completed [facility] HEPATITIS A 2008-11-01 00:00:00 Completed [facility] MMR 2008-11-01 00:00:00 Completed [facility] Varicella (varivax)(chicken pox) 2008-11-01 00:00:00 Completed [facility] Varicella (varivax)(chicken pox) 2008-11-01 00:00:00 Completed [facility] Dtap/ipv 2008-11-01 00:00:00 Completed [facility] HEPATITIS A 2008-11-01 00:00:00 Completed [facility] MMR 2008-11-01 00:00:00 Completed [facility] Varicella (varivax)(chicken pox) 2008-11-01 00:00:00 Completed [facility] Dtap/ipv 2008-11-01 00:00:00 Completed [facility] HEPATITIS A 2008-11-01 00:00:00 Completed [facility] MMR 2008-11-01 00:00:00 Completed [facility] Varicella (varivax)(chicken pox) 2008-11-01 00:00:00 Completed [facility] Dtap/ipv 2008-11-01 00:00:00 Completed [facility] Dtap/ipv 2008-11-01 00:00:00 Completed [facility] HEPATITIS A 2008-11-01 00:00:00 Completed [facility] MMR 2008-11-01 00:00:00 Completed [facility] Varicella (varivax)(chicken pox) 2008-11-01 00:00:00 Completed [facility] Dtap/ipv 2008-11-01 00:00:00 Completed [facility] HEPATITIS A 2008-11-01 00:00:00 Completed [facility] MMR 2008-11-01 00:00:00 Completed [facility] HEPATITIS A 2008-11-01 00:00:00 Completed [facility] Varicella (varivax)(chicken pox) 2008-11-01 00:00:00 Completed [facility] Dtap/ipv 2008-11-01 00:00:00 Completed [facility] HEPATITIS A 2008-11-01 00:00:00 Completed [facility] MMR 2008-11-01 00:00:00 Completed [facility] Varicella (varivax)(chicken pox) 2008-11-01 00:00:00 Completed [facility] Dtap/ipv 2008-11-01 00:00:00 Completed [facility] Flu Trivalent 2008-07-26 00:00:00 Completed [facility] Flu Trivalent 2008-07-26 00:00:00 Completed [facility] Flu Trivalent 2008-07-26 00:00:00 Completed [facility] Flu Trivalent 2008-07-26 00:00:00 Completed [facility] Flu Trivalent 2008-07-26 00:00:00 Completed [facility] Flu Trivalent 2008-07-26 00:00:00 Completed [facility] Flu Trivalent 2008-07-26 00:00:00 Completed [facility] Flu Trivalent 2008-07-26 00:00:00 Completed [facility] Flu Trivalent 2008-07-26 00:00:00 Completed [facility] Flu Trivalent 2008-07-26 00:00:00 Completed [facility] Flu Trivalent 2008-07-26 00:00:00 Completed [facility] Flu Trivalent 2008-07-26 00:00:00 Completed [facility] Flu Trivalent 2008-07-26 00:00:00 Completed [facility] Flu Trivalent 2008-07-26 00:00:00 Completed [facility] Flu Trivalent 2008-07-26 00:00:00 Completed [facility] Flu Trivalent 2008-07-26 00:00:00 Completed [facility] Flu Trivalent 2008-07-26 00:00:00 Completed [facility] Flu Trivalent 2008-07-26 00:00:00 Completed [facility] Flu Trivalent 2008-07-26 00:00:00 Completed [facility] Flu Trivalent 2008-07-26 00:00:00 Completed [facility] Flu Trivalent 2008-07-26 00:00:00 Completed [facility] Flu Trivalent 2008-07-26 00:00:00 Completed [facility] Flu Trivalent 2008-07-26 00:00:00 Completed [facility] Flu Trivalent 2008-07-26 00:00:00 Completed [facility] Flu Trivalent 2008-07-26 00:00:00 Completed [facility] Flu Trivalent 2008-07-26 00:00:00 Completed [facility] Flu Trivalent 2008-07-26 00:00:00 Completed [facility] Flu Trivalent 2008-07-26 00:00:00 Completed [facility] Flu Trivalent 2008-07-26 00:00:00 Completed [facility] Flu Trivalent 2008-07-26 00:00:00 Completed [facility] Flu Trivalent 2008-07-26 00:00:00 Completed [facility] Flu Trivalent 2008-07-26 00:00:00 Completed [facility] Flu Trivalent 2008-07-26 00:00:00 Completed [facility] Flu Trivalent 2008-07-26 00:00:00 Completed [facility] Flu Trivalent 2008-07-26 00:00:00 Completed [facility] Flu Trivalent 2008-07-26 00:00:00 Completed [facility] Flu Trivalent 2008-07-26 00:00:00 Completed [facility] Flu Trivalent 2008-07-26 00:00:00 Completed [facility] Flu Trivalent 2008-07-26 00:00:00 Completed [facility] Flu Trivalent 2008-07-26 00:00:00 Completed [facility] Flu Trivalent 2008-07-26 00:00:00 Completed [facility] Flu Trivalent 2008-07-26 00:00:00 Completed [facility] Flu Trivalent 2008-07-26 00:00:00 Completed [facility] Flu Trivalent 2008-07-26 00:00:00 Completed [facility] HEPATITIS A 2008-02-23 00:00:00 Completed [facility] IPV 2008-02-23 00:00:00 Completed [facility] IPV 2008-02-23 00:00:00 Completed [facility] HEPATITIS A 2008-02-23 00:00:00 Completed [facility] IPV 2008-02-23 00:00:00 Completed [facility] HEPATITIS A 2008-02-23 00:00:00 Completed [facility] IPV 2008-02-23 00:00:00 Completed [facility] HEPATITIS A 2008-02-23 00:00:00 Completed [facility] IPV 2008-02-23 00:00:00 Completed [facility] HEPATITIS A 2008-02-23 00:00:00 Completed [facility] IPV 2008-02-23 00:00:00 Completed [facility] HEPATITIS A 2008-02-23 00:00:00 Completed [facility] IPV 2008-02-23 00:00:00 Completed [facility] HEPATITIS A 2008-02-23 00:00:00 Completed [facility] HEPATITIS A 2008-02-23 00:00:00 Completed [facility] IPV 2008-02-23 00:00:00 Completed [facility] HEPATITIS A 2008-02-23 00:00:00 Completed [facility] IPV 2008-02-23 00:00:00 Completed [facility] HEPATITIS A 2008-02-23 00:00:00 Completed [facility] IPV 2008-02-23 00:00:00 Completed [facility] HEPATITIS A 2008-02-23 00:00:00 Completed [facility] IPV 2008-02-23 00:00:00 Completed [facility] IPV 2008-02-23 00:00:00 Completed [facility] HEPATITIS A 2008-02-23 00:00:00 Completed [facility] IPV 2008-02-23 00:00:00 Completed [facility] HEPATITIS A 2008-02-23 00:00:00 Completed [facility] IPV 2008-02-23 00:00:00 Completed [facility] HEPATITIS A 2008-02-23 00:00:00 Completed [facility] IPV 2008-02-23 00:00:00 Completed [facility] HEPATITIS A 2008-02-23 00:00:00 Completed [facility] HEPATITIS A 2008-02-23 00:00:00 Completed [facility] IPV 2008-02-23 00:00:00 Completed [facility] HEPATITIS A 2008-02-23 00:00:00 Completed [facility] IPV 2008-02-23 00:00:00 Completed [facility] HEPATITIS A 2008-02-23 00:00:00 Completed [facility] IPV 2008-02-23 00:00:00 Completed [facility] HEPATITIS A 2008-02-23 00:00:00 Completed [facility] IPV 2008-02-23 00:00:00 Completed [facility] IPV 2008-02-23 00:00:00 Completed [facility] HEPATITIS A 2008-02-23 00:00:00 Completed [facility] IPV 2008-02-23 00:00:00 Completed [facility] HEPATITIS A 2008-02-23 00:00:00 Completed [facility] IPV 2008-02-23 00:00:00 Completed [facility] HEPATITIS A 2008-02-23 00:00:00 Completed [facility] IPV 2008-02-23 00:00:00 Completed [facility] HEPATITIS A 2008-02-23 00:00:00 Completed [facility] IPV 2008-02-23 00:00:00 Completed [facility] HEPATITIS A 2008-02-23 00:00:00 Completed [facility] HEPATITIS A 2008-02-23 00:00:00 Completed [facility] IPV 2008-02-23 00:00:00 Completed [facility] IPV 2008-02-23 00:00:00 Completed [facility] HEPATITIS A 2008-02-23 00:00:00 Completed [facility] IPV 2008-02-23 00:00:00 Completed [facility] HEPATITIS A 2008-02-23 00:00:00 Completed [facility] IPV 2008-02-23 00:00:00 Completed [facility] HEPATITIS A 2008-02-23 00:00:00 Completed [facility] IPV 2008-02-23 00:00:00 Completed [facility] HEPATITIS A 2008-02-23 00:00:00 Completed [facility] IPV 2008-02-23 00:00:00 Completed [facility] HEPATITIS A 2008-02-23 00:00:00 Completed [facility] HEPATITIS A 2008-02-23 00:00:00 Completed [facility] IPV 2008-02-23 00:00:00 Completed [facility] HEPATITIS A 2008-02-23 00:00:00 Completed [facility] IPV 2008-02-23 00:00:00 Completed [facility] HEPATITIS A 2008-02-23 00:00:00 Completed [facility] IPV 2008-02-23 00:00:00 Completed [facility] HEPATITIS A 2008-02-23 00:00:00 Completed [facility] IPV 2008-02-23 00:00:00 Completed [facility] IPV 2008-02-23 00:00:00 Completed [facility] HEPATITIS A 2008-02-23 00:00:00 Completed [facility] IPV 2008-02-23 00:00:00 Completed [facility] HEPATITIS A 2008-02-23 00:00:00 Completed [facility] IPV 2008-02-23 00:00:00 Completed [facility] HEPATITIS A 2008-02-23 00:00:00 Completed [facility] IPV 2008-02-23 00:00:00 Completed [facility] HEPATITIS A 2008-02-23 00:00:00 Completed [facility] IPV 2008-02-23 00:00:00 Completed [facility] HEPATITIS A 2008-02-23 00:00:00 Completed [facility] IPV 2008-02-23 00:00:00 Completed [facility] HEPATITIS A 2008-02-23 00:00:00 Completed [facility] IPV 2008-02-23 00:00:00 Completed [facility] HEPATITIS A 2008-02-23 00:00:00 Completed [facility] HEPATITIS A 2008-02-23 00:00:00 Completed [facility] IPV 2008-02-23 00:00:00 Completed [facility] HEPATITIS A 2008-02-23 00:00:00 Completed [facility] IPV 2008-02-23 00:00:00 Completed [facility] HEPATITIS A 2008-02-23 00:00:00 Completed [facility] IPV 2008-02-23 00:00:00 Completed [facility] DTaP, Unspecified Formulation 2006-05-20 00:00:00 Completed [facility] HIB 4 Dose Schedule 2006-05-20 00:00:00 Completed [facility] Pneumococcal 7 Conjugate, PCV7 (Prevnar7) 2006-05-20 00:00:00 Completed [facility] Varicella (varivax)(chicken pox) 2006-05-20 00:00:00 Completed [facility] Varicella (varivax)(chicken pox) 2006-05-20 00:00:00 Completed [facility] DTaP, Unspecified Formulation 2006-05-20 00:00:00 Completed [facility] HIB 4 Dose Schedule 2006-05-20 00:00:00 Completed [facility] Pneumococcal 7 Conjugate, PCV7 (Prevnar7) 2006-05-20 00:00:00 Completed [facility] Varicella (varivax)(chicken pox) 2006-05-20 00:00:00 Completed [facility] DTaP, Unspecified Formulation 2006-05-20 00:00:00 Completed [facility] HIB 4 Dose Schedule 2006-05-20 00:00:00 Completed [facility] Pneumococcal 7 Conjugate, PCV7 (Prevnar7) 2006-05-20 00:00:00 Completed [facility] Varicella (varivax)(chicken pox) 2006-05-20 00:00:00 Completed [facility] DTaP, Unspecified Formulation 2006-05-20 00:00:00 Completed [facility] HIB 4 Dose Schedule 2006-05-20 00:00:00 Completed [facility] Pneumococcal 7 Conjugate, PCV7 (Prevnar7) 2006-05-20 00:00:00 Completed [facility] Varicella (varivax)(chicken pox) 2006-05-20 00:00:00 Completed [facility] DTaP, Unspecified Formulation 2006-05-20 00:00:00 Completed [facility] DTaP, Unspecified Formulation 2006-05-20 00:00:00 Completed [facility] HIB 4 Dose Schedule 2006-05-20 00:00:00 Completed [facility] Pneumococcal 7 Conjugate, PCV7 (Prevnar7) 2006-05-20 00:00:00 Completed [facility] Varicella (varivax)(chicken pox) 2006-05-20 00:00:00 Completed [facility] DTaP, Unspecified Formulation 2006-05-20 00:00:00 Completed [facility] HIB 4 Dose Schedule 2006-05-20 00:00:00 Completed [facility] Pneumococcal 7 Conjugate, PCV7 (Prevnar7) 2006-05-20 00:00:00 Completed [facility] Varicella (varivax)(chicken pox) 2006-05-20 00:00:00 Completed [facility] DTaP, Unspecified Formulation 2006-05-20 00:00:00 Completed [facility] HIB 4 Dose Schedule 2006-05-20 00:00:00 Completed [facility] Pneumococcal 7 Conjugate, PCV7 (Prevnar7) 2006-05-20 00:00:00 Completed [facility] Varicella (varivax)(chicken pox) 2006-05-20 00:00:00 Completed [facility] DTaP, Unspecified Formulation 2006-05-20 00:00:00 Completed [facility] HIB 4 Dose Schedule 2006-05-20 00:00:00 Completed [facility] HIB 4 Dose Schedule 2006-05-20 00:00:00 Completed [facility] Pneumococcal 7 Conjugate, PCV7 (Prevnar7) 2006-05-20 00:00:00 Completed [facility] Varicella (varivax)(chicken pox) 2006-05-20 00:00:00 Completed [facility] DTaP, Unspecified Formulation 2006-05-20 00:00:00 Completed [facility] HIB 4 Dose Schedule 2006-05-20 00:00:00 Completed [facility] Pneumococcal 7 Conjugate, PCV7 (Prevnar7) 2006-05-20 00:00:00 Completed [facility] Pneumococcal 7 Conjugate, PCV7 (Prevnar7) 2006-05-20 00:00:00 Completed [facility] Varicella (varivax)(chicken pox) 2006-05-20 00:00:00 Completed [facility] DTaP, Unspecified Formulation 2006-05-20 00:00:00 Completed [facility] HIB 4 Dose Schedule 2006-05-20 00:00:00 Completed [facility] Pneumococcal 7 Conjugate, PCV7 (Prevnar7) 2006-05-20 00:00:00 Completed [facility] Varicella (varivax)(chicken pox) 2006-05-20 00:00:00 Completed [facility] Varicella (varivax)(chicken pox) 2006-05-20 00:00:00 Completed [facility] DTaP, Unspecified Formulation 2006-05-20 00:00:00 Completed [facility] HIB 4 Dose Schedule 2006-05-20 00:00:00 Completed [facility] Pneumococcal 7 Conjugate, PCV7 (Prevnar7) 2006-05-20 00:00:00 Completed [facility] Varicella (varivax)(chicken pox) 2006-05-20 00:00:00 Completed [facility] DTaP, Unspecified Formulation 2006-05-20 00:00:00 Completed [facility] HIB 4 Dose Schedule 2006-05-20 00:00:00 Completed [facility] Pneumococcal 7 Conjugate, PCV7 (Prevnar7) 2006-05-20 00:00:00 Completed [facility] Varicella (varivax)(chicken pox) 2006-05-20 00:00:00 Completed [facility] DTaP, Unspecified Formulation 2006-05-20 00:00:00 Completed [facility] DTaP, Unspecified Formulation 2006-05-20 00:00:00 Completed [facility] HIB 4 Dose Schedule 2006-05-20 00:00:00 Completed [facility] Pneumococcal 7 Conjugate, PCV7 (Prevnar7) 2006-05-20 00:00:00 Completed [facility] Varicella (varivax)(chicken pox) 2006-05-20 00:00:00 Completed [facility] DTaP, Unspecified Formulation 2006-05-20 00:00:00 Completed [facility] HIB 4 Dose Schedule 2006-05-20 00:00:00 Completed [facility] Pneumococcal 7 Conjugate, PCV7 (Prevnar7) 2006-05-20 00:00:00 Completed [facility] Varicella (varivax)(chicken pox) 2006-05-20 00:00:00 Completed [facility] DTaP, Unspecified Formulation 2006-05-20 00:00:00 Completed [facility] HIB 4 Dose Schedule 2006-05-20 00:00:00 Completed [facility] Pneumococcal 7 Conjugate, PCV7 (Prevnar7) 2006-05-20 00:00:00 Completed [facility] HIB 4 Dose Schedule 2006-05-20 00:00:00 Completed [facility] Varicella (varivax)(chicken pox) 2006-05-20 00:00:00 Completed [facility] DTaP, Unspecified Formulation 2006-05-20 00:00:00 Completed [facility] HIB 4 Dose Schedule 2006-05-20 00:00:00 Completed [facility] Pneumococcal 7 Conjugate, PCV7 (Prevnar7) 2006-05-20 00:00:00 Completed [facility] Varicella (varivax)(chicken pox) 2006-05-20 00:00:00 Completed [facility] Pneumococcal 7 Conjugate, PCV7 (Prevnar7) 2006-05-20 00:00:00 Completed [facility] DTaP, Unspecified Formulation 2006-05-20 00:00:00 Completed [facility] HIB 4 Dose Schedule 2006-05-20 00:00:00 Completed [facility] Pneumococcal 7 Conjugate, PCV7 (Prevnar7) 2006-05-20 00:00:00 Completed [facility] Varicella (varivax)(chicken pox) 2006-05-20 00:00:00 Completed [facility] Varicella (varivax)(chicken pox) 2006-05-20 00:00:00 Completed [facility] DTaP, Unspecified Formulation 2006-05-20 00:00:00 Completed [facility] HIB 4 Dose Schedule 2006-05-20 00:00:00 Completed [facility] Pneumococcal 7 Conjugate, PCV7 (Prevnar7) 2006-05-20 00:00:00 Completed [facility] Varicella (varivax)(chicken pox) 2006-05-20 00:00:00 Completed [facility] DTaP, Unspecified Formulation 2006-05-20 00:00:00 Completed [facility] HIB 4 Dose Schedule 2006-05-20 00:00:00 Completed [facility] Pneumococcal 7 Conjugate, PCV7 (Prevnar7) 2006-05-20 00:00:00 Completed [facility] Varicella (varivax)(chicken pox) 2006-05-20 00:00:00 Completed [facility] DTaP, Unspecified Formulation 2006-05-20 00:00:00 Completed [facility] DTaP, Unspecified Formulation 2006-05-20 00:00:00 Completed [facility] HIB 4 Dose Schedule 2006-05-20 00:00:00 Completed [facility] Pneumococcal 7 Conjugate, PCV7 (Prevnar7) 2006-05-20 00:00:00 Completed [facility] Varicella (varivax)(chicken pox) 2006-05-20 00:00:00 Completed [facility] DTaP, Unspecified Formulation 2006-05-20 00:00:00 Completed [facility] HIB 4 Dose Schedule 2006-05-20 00:00:00 Completed [facility] Pneumococcal 7 Conjugate, PCV7 (Prevnar7) 2006-05-20 00:00:00 Completed [facility] Varicella (varivax)(chicken pox) 2006-05-20 00:00:00 Completed [facility] DTaP, Unspecified Formulation 2006-05-20 00:00:00 Completed [facility] HIB 4 Dose Schedule 2006-05-20 00:00:00 Completed [facility] Pneumococcal 7 Conjugate, PCV7 (Prevnar7) 2006-05-20 00:00:00 Completed [facility] Varicella (varivax)(chicken pox) 2006-05-20 00:00:00 Completed [facility] HIB 4 Dose Schedule 2006-05-20 00:00:00 Completed [facility] Pneumococcal 7 Conjugate, PCV7 (Prevnar7) 2006-05-20 00:00:00 Completed [facility] Varicella (varivax)(chicken pox) 2006-05-20 00:00:00 Completed [facility] DTaP, Unspecified Formulation 2006-05-20 00:00:00 Completed [facility] HIB 4 Dose Schedule 2006-05-20 00:00:00 Completed [facility] Pneumococcal 7 Conjugate, PCV7 (Prevnar7) 2006-05-20 00:00:00 Completed [facility] Varicella (varivax)(chicken pox) 2006-05-20 00:00:00 Completed [facility] DTaP, Unspecified Formulation 2006-05-20 00:00:00 Completed [facility] HIB 4 Dose Schedule 2006-05-20 00:00:00 Completed [facility] Pneumococcal 7 Conjugate, PCV7 (Prevnar7) 2006-05-20 00:00:00 Completed [facility] Varicella (varivax)(chicken pox) 2006-05-20 00:00:00 Completed [facility] DTaP, Unspecified Formulation 2006-05-20 00:00:00 Completed [facility] HIB 4 Dose Schedule 2006-05-20 00:00:00 Completed [facility] Pneumococcal 7 Conjugate, PCV7 (Prevnar7) 2006-05-20 00:00:00 Completed [facility] Varicella (varivax)(chicken pox) 2006-05-20 00:00:00 Completed [facility] DTaP, Unspecified Formulation 2006-05-20 00:00:00 Completed [facility] DTaP, Unspecified Formulation 2006-05-20 00:00:00 Completed [facility] HIB 4 Dose Schedule 2006-05-20 00:00:00 Completed [facility] Pneumococcal 7 Conjugate, PCV7 (Prevnar7) 2006-05-20 00:00:00 Completed [facility] Varicella (varivax)(chicken pox) 2006-05-20 00:00:00 Completed [facility] DTaP, Unspecified Formulation 2006-05-20 00:00:00 Completed [facility] HIB 4 Dose Schedule 2006-05-20 00:00:00 Completed [facility] Pneumococcal 7 Conjugate, PCV7 (Prevnar7) 2006-05-20 00:00:00 Completed [facility] Varicella (varivax)(chicken pox) 2006-05-20 00:00:00 Completed [facility] DTaP, Unspecified Formulation 2006-05-20 00:00:00 Completed [facility] HIB 4 Dose Schedule 2006-05-20 00:00:00 Completed [facility] Pneumococcal 7 Conjugate, PCV7 (Prevnar7) 2006-05-20 00:00:00 Completed [facility] Varicella (varivax)(chicken pox) 2006-05-20 00:00:00 Completed [facility] HIB 4 Dose Schedule 2006-05-20 00:00:00 Completed [facility] DTaP, Unspecified Formulation 2006-05-20 00:00:00 Completed [facility] HIB 4 Dose Schedule 2006-05-20 00:00:00 Completed [facility] Pneumococcal 7 Conjugate, PCV7 (Prevnar7) 2006-05-20 00:00:00 Completed [facility] Varicella (varivax)(chicken pox) 2006-05-20 00:00:00 Completed [facility] Pneumococcal 7 Conjugate, PCV7 (Prevnar7) 2006-05-20 00:00:00 Completed [facility] DTaP, Unspecified Formulation 2006-05-20 00:00:00 Completed [facility] HIB 4 Dose Schedule 2006-05-20 00:00:00 Completed [facility] Pneumococcal 7 Conjugate, PCV7 (Prevnar7) 2006-05-20 00:00:00 Completed [facility] Varicella (varivax)(chicken pox) 2006-05-20 00:00:00 Completed [facility] Varicella (varivax)(chicken pox) 2006-05-20 00:00:00 Completed [facility] DTaP, Unspecified Formulation 2006-05-20 00:00:00 Completed [facility] HIB 4 Dose Schedule 2006-05-20 00:00:00 Completed [facility] Pneumococcal 7 Conjugate, PCV7 (Prevnar7) 2006-05-20 00:00:00 Completed [facility] Varicella (varivax)(chicken pox) 2006-05-20 00:00:00 Completed [facility] DTaP, Unspecified Formulation 2006-05-20 00:00:00 Completed [facility] HIB 4 Dose Schedule 2006-05-20 00:00:00 Completed [facility] Pneumococcal 7 Conjugate, PCV7 (Prevnar7) 2006-05-20 00:00:00 Completed [facility] Varicella (varivax)(chicken pox) 2006-05-20 00:00:00 Completed [facility] DTaP, Unspecified Formulation 2006-05-20 00:00:00 Completed [facility] HIB 4 Dose Schedule 2006-05-20 00:00:00 Completed [facility] Pneumococcal 7 Conjugate, PCV7 (Prevnar7) 2006-05-20 00:00:00 Completed [facility] Varicella (varivax)(chicken pox) 2006-05-20 00:00:00 Completed [facility] DTaP, Unspecified Formulation 2006-05-20 00:00:00 Completed [facility] HIB 4 Dose Schedule 2006-05-20 00:00:00 Completed [facility] Pneumococcal 7 Conjugate, PCV7 (Prevnar7) 2006-05-20 00:00:00 Completed [facility] Varicella (varivax)(chicken pox) 2006-05-20 00:00:00 Completed [facility] DTaP, Unspecified Formulation 2006-05-20 00:00:00 Completed [facility] HIB 4 Dose Schedule 2006-05-20 00:00:00 Completed [facility] Pneumococcal 7 Conjugate, PCV7 (Prevnar7) 2006-05-20 00:00:00 Completed [facility] DTaP, Unspecified Formulation 2006-05-20 00:00:00 Completed [facility] Varicella (varivax)(chicken pox) 2006-05-20 00:00:00 Completed [facility] DTaP, Unspecified Formulation 2006-05-20 00:00:00 Completed [facility] HIB 4 Dose Schedule 2006-05-20 00:00:00 Completed [facility] Pneumococcal 7 Conjugate, PCV7 (Prevnar7) 2006-05-20 00:00:00 Completed [facility] Varicella (varivax)(chicken pox) 2006-05-20 00:00:00 Completed [facility] DTaP, Unspecified Formulation 2006-05-20 00:00:00 Completed [facility] HIB 4 Dose Schedule 2006-05-20 00:00:00 Completed [facility] Pneumococcal 7 Conjugate, PCV7 (Prevnar7) 2006-05-20 00:00:00 Completed [facility] Varicella (varivax)(chicken pox) 2006-05-20 00:00:00 Completed [facility] DTaP, Unspecified Formulation 2006-05-20 00:00:00 Completed [facility] HIB 4 Dose Schedule 2006-05-20 00:00:00 Completed [facility] Pneumococcal 7 Conjugate, PCV7 (Prevnar7) 2006-05-20 00:00:00 Completed [facility] Varicella (varivax)(chicken pox) 2006-05-20 00:00:00 Completed [facility] HIB 4 Dose Schedule 2006-05-20 00:00:00 Completed [facility] DTaP, Unspecified Formulation 2006-05-20 00:00:00 Completed [facility] HIB 4 Dose Schedule 2006-05-20 00:00:00 Completed [facility] Pneumococcal 7 Conjugate, PCV7 (Prevnar7) 2006-05-20 00:00:00 Completed [facility] Varicella (varivax)(chicken pox) 2006-05-20 00:00:00 Completed [facility] Pneumococcal 7 Conjugate, PCV7 (Prevnar7) 2006-05-20 00:00:00 Completed [facility] Flu Trivalent 2005-09-03 00:00:00 Completed [facility] MMR 2005-09-03 00:00:00 Completed [facility] Flu Trivalent 2005-09-03 00:00:00 Completed [facility] MMR 2005-09-03 00:00:00 Completed [facility] Flu Trivalent 2005-09-03 00:00:00 Completed [facility] MMR 2005-09-03 00:00:00 Completed [facility] Flu Trivalent 2005-09-03 00:00:00 Completed [facility] MMR 2005-09-03 00:00:00 Completed [facility] Flu Trivalent 2005-09-03 00:00:00 Completed [facility] MMR 2005-09-03 00:00:00 Completed [facility] Flu Trivalent 2005-09-03 00:00:00 Completed [facility] Flu Trivalent 2005-09-03 00:00:00 Completed [facility] MMR 2005-09-03 00:00:00 Completed [facility] Flu Trivalent 2005-09-03 00:00:00 Completed [facility] MMR 2005-09-03 00:00:00 Completed [facility] Flu Trivalent 2005-09-03 00:00:00 Completed [facility] MMR 2005-09-03 00:00:00 Completed [facility] MMR 2005-09-03 00:00:00 Completed [facility] Flu Trivalent 2005-09-03 00:00:00 Completed [facility] MMR 2005-09-03 00:00:00 Completed [facility] Flu Trivalent 2005-09-03 00:00:00 Completed [facility] MMR 2005-09-03 00:00:00 Completed [facility] Flu Trivalent 2005-09-03 00:00:00 Completed [facility] MMR 2005-09-03 00:00:00 Completed [facility] Flu Trivalent 2005-09-03 00:00:00 Completed [facility] MMR 2005-09-03 00:00:00 Completed [facility] Flu Trivalent 2005-09-03 00:00:00 Completed [facility] MMR 2005-09-03 00:00:00 Completed [facility] Flu Trivalent 2005-09-03 00:00:00 Completed [facility] Flu Trivalent 2005-09-03 00:00:00 Completed [facility] MMR 2005-09-03 00:00:00 Completed [facility] Flu Trivalent 2005-09-03 00:00:00 Completed [facility] MMR 2005-09-03 00:00:00 Completed [facility] MMR 2005-09-03 00:00:00 Completed [facility] Flu Trivalent 2005-09-03 00:00:00 Completed [facility] MMR 2005-09-03 00:00:00 Completed [facility] Flu Trivalent 2005-09-03 00:00:00 Completed [facility] MMR 2005-09-03 00:00:00 Completed [facility] Flu Trivalent 2005-09-03 00:00:00 Completed [facility] MMR 2005-09-03 00:00:00 Completed [facility] Flu Trivalent 2005-09-03 00:00:00 Completed [facility] MMR 2005-09-03 00:00:00 Completed [facility] Flu Trivalent 2005-09-03 00:00:00 Completed [facility] MMR 2005-09-03 00:00:00 Completed [facility] Flu Trivalent 2005-09-03 00:00:00 Completed [facility] Flu Trivalent 2005-09-03 00:00:00 Completed [facility] MMR 2005-09-03 00:00:00 Completed [facility] Flu Trivalent 2005-09-03 00:00:00 Completed [facility] MMR 2005-09-03 00:00:00 Completed [facility] MMR 2005-09-03 00:00:00 Completed [facility] Flu Trivalent 2005-09-03 00:00:00 Completed [facility] MMR 2005-09-03 00:00:00 Completed [facility] Flu Trivalent 2005-09-03 00:00:00 Completed [facility] MMR 2005-09-03 00:00:00 Completed [facility] Flu Trivalent 2005-09-03 00:00:00 Completed [facility] MMR 2005-09-03 00:00:00 Completed [facility] Flu Trivalent 2005-09-03 00:00:00 Completed [facility] MMR 2005-09-03 00:00:00 Completed [facility] Flu Trivalent 2005-09-03 00:00:00 Completed [facility] Flu Trivalent 2005-09-03 00:00:00 Completed [facility] MMR 2005-09-03 00:00:00 Completed [facility] Flu Trivalent 2005-09-03 00:00:00 Completed [facility] MMR 2005-09-03 00:00:00 Completed [facility] MMR 2005-09-03 00:00:00 Completed [facility] Flu Trivalent 2005-09-03 00:00:00 Completed [facility] MMR 2005-09-03 00:00:00 Completed [facility] Flu Trivalent 2005-09-03 00:00:00 Completed [facility] MMR 2005-09-03 00:00:00 Completed [facility] Flu Trivalent 2005-09-03 00:00:00 Completed [facility] MMR 2005-09-03 00:00:00 Completed [facility] Flu Trivalent 2005-09-03 00:00:00 Completed [facility] MMR 2005-09-03 00:00:00 Completed [facility] Flu Trivalent 2005-09-03 00:00:00 Completed [facility] MMR 2005-09-03 00:00:00 Completed [facility] Flu Trivalent 2005-09-03 00:00:00 Completed [facility] MMR 2005-09-03 00:00:00 Completed [facility] Flu Trivalent 2005-09-03 00:00:00 Completed [facility] MMR 2005-09-03 00:00:00 Completed [facility] Flu Trivalent 2005-09-03 00:00:00 Completed [facility] MMR 2005-09-03 00:00:00 Completed [facility] Flu Trivalent 2005-09-03 00:00:00 Completed [facility] Flu Trivalent 2005-09-03 00:00:00 Completed [facility] MMR 2005-09-03 00:00:00 Completed [facility] Flu Trivalent 2005-09-03 00:00:00 Completed [facility] MMR 2005-09-03 00:00:00 Completed [facility] MMR 2005-09-03 00:00:00 Completed [facility] Flu Trivalent 2005-09-03 00:00:00 Completed [facility] MMR 2005-09-03 00:00:00 Completed [facility] DTaP, Unspecified Formulation 2005-04-23 00:00:00 Completed [facility] Hep B, Adol or Pedi Dosage 2005-04-23 00:00:00 Completed [facility] HIB 4 Dose Schedule 2005-04-23 00:00:00 Completed [facility] Pneumococcal 7 Conjugate, PCV7 (Prevnar7) 2005-04-23 00:00:00 Completed [facility] DTaP, Unspecified Formulation 2005-04-23 00:00:00 Completed [facility] Hep B, Adol or Pedi Dosage 2005-04-23 00:00:00 Completed [facility] HIB 4 Dose Schedule 2005-04-23 00:00:00 Completed [facility] Pneumococcal 7 Conjugate, PCV7 (Prevnar7) 2005-04-23 00:00:00 Completed [facility] DTaP, Unspecified Formulation 2005-04-23 00:00:00 Completed [facility] Hep B, Adol or Pedi Dosage 2005-04-23 00:00:00 Completed [facility] HIB 4 Dose Schedule 2005-04-23 00:00:00 Completed [facility] Pneumococcal 7 Conjugate, PCV7 (Prevnar7) 2005-04-23 00:00:00 Completed [facility] DTaP, Unspecified Formulation 2005-04-23 00:00:00 Completed [facility] Hep B, Adol or Pedi Dosage 2005-04-23 00:00:00 Completed [facility] HIB 4 Dose Schedule 2005-04-23 00:00:00 Completed [facility] Pneumococcal 7 Conjugate, PCV7 (Prevnar7) 2005-04-23 00:00:00 Completed [facility] DTaP, Unspecified Formulation 2005-04-23 00:00:00 Completed [facility] DTaP, Unspecified Formulation 2005-04-23 00:00:00 Completed [facility] Hep B, Adol or Pedi Dosage 2005-04-23 00:00:00 Completed [facility] HIB 4 Dose Schedule 2005-04-23 00:00:00 Completed [facility] Pneumococcal 7 Conjugate, PCV7 (Prevnar7) 2005-04-23 00:00:00 Completed [facility] DTaP, Unspecified Formulation 2005-04-23 00:00:00 Completed [facility] Hep B, Adol or Pedi Dosage 2005-04-23 00:00:00 Completed [facility] HIB 4 Dose Schedule 2005-04-23 00:00:00 Completed [facility] Pneumococcal 7 Conjugate, PCV7 (Prevnar7) 2005-04-23 00:00:00 Completed [facility] DTaP, Unspecified Formulation 2005-04-23 00:00:00 Completed [facility] Hep B, Adol or Pedi Dosage 2005-04-23 00:00:00 Completed [facility] HIB 4 Dose Schedule 2005-04-23 00:00:00 Completed [facility] Hep B, Adol or Pedi Dosage 2005-04-23 00:00:00 Completed [facility] Pneumococcal 7 Conjugate, PCV7 (Prevnar7) 2005-04-23 00:00:00 Completed [facility] HIB 4 Dose Schedule 2005-04-23 00:00:00 Completed [facility] DTaP, Unspecified Formulation 2005-04-23 00:00:00 Completed [facility] Hep B, Adol or Pedi Dosage 2005-04-23 00:00:00 Completed [facility] HIB 4 Dose Schedule 2005-04-23 00:00:00 Completed [facility] Pneumococcal 7 Conjugate, PCV7 (Prevnar7) 2005-04-23 00:00:00 Completed [facility] DTaP, Unspecified Formulation 2005-04-23 00:00:00 Completed [facility] Pneumococcal 7 Conjugate, PCV7 (Prevnar7) 2005-04-23 00:00:00 Completed [facility] Hep B, Adol or Pedi Dosage 2005-04-23 00:00:00 Completed [facility] HIB 4 Dose Schedule 2005-04-23 00:00:00 Completed [facility] Pneumococcal 7 Conjugate, PCV7 (Prevnar7) 2005-04-23 00:00:00 Completed [facility] DTaP, Unspecified Formulation 2005-04-23 00:00:00 Completed [facility] Hep B, Adol or Pedi Dosage 2005-04-23 00:00:00 Completed [facility] HIB 4 Dose Schedule 2005-04-23 00:00:00 Completed [facility] Pneumococcal 7 Conjugate, PCV7 (Prevnar7) 2005-04-23 00:00:00 Completed [facility] DTaP, Unspecified Formulation 2005-04-23 00:00:00 Completed [facility] Hep B, Adol or Pedi Dosage 2005-04-23 00:00:00 Completed [facility] HIB 4 Dose Schedule 2005-04-23 00:00:00 Completed [facility] Pneumococcal 7 Conjugate, PCV7 (Prevnar7) 2005-04-23 00:00:00 Completed [facility] DTaP, Unspecified Formulation 2005-04-23 00:00:00 Completed [facility] Hep B, Adol or Pedi Dosage 2005-04-23 00:00:00 Completed [facility] HIB 4 Dose Schedule 2005-04-23 00:00:00 Completed [facility] Pneumococcal 7 Conjugate, PCV7 (Prevnar7) 2005-04-23 00:00:00 Completed [facility] DTaP, Unspecified Formulation 2005-04-23 00:00:00 Completed [facility] DTaP, Unspecified Formulation 2005-04-23 00:00:00 Completed [facility] Hep B, Adol or Pedi Dosage 2005-04-23 00:00:00 Completed [facility] HIB 4 Dose Schedule 2005-04-23 00:00:00 Completed [facility] Pneumococcal 7 Conjugate, PCV7 (Prevnar7) 2005-04-23 00:00:00 Completed [facility] DTaP, Unspecified Formulation 2005-04-23 00:00:00 Completed [facility] Hep B, Adol or Pedi Dosage 2005-04-23 00:00:00 Completed [facility] HIB 4 Dose Schedule 2005-04-23 00:00:00 Completed [facility] Pneumococcal 7 Conjugate, PCV7 (Prevnar7) 2005-04-23 00:00:00 Completed [facility] Hep B, Adol or Pedi Dosage 2005-04-23 00:00:00 Completed [facility] DTaP, Unspecified Formulation 2005-04-23 00:00:00 Completed [facility] Hep B, Adol or Pedi Dosage 2005-04-23 00:00:00 Completed [facility] HIB 4 Dose Schedule 2005-04-23 00:00:00 Completed [facility] HIB 4 Dose Schedule 2005-04-23 00:00:00 Completed [facility] Pneumococcal 7 Conjugate, PCV7 (Prevnar7) 2005-04-23 00:00:00 Completed [facility] DTaP, Unspecified Formulation 2005-04-23 00:00:00 Completed [facility] Hep B, Adol or Pedi Dosage 2005-04-23 00:00:00 Completed [facility] HIB 4 Dose Schedule 2005-04-23 00:00:00 Completed [facility] Pneumococcal 7 Conjugate, PCV7 (Prevnar7) 2005-04-23 00:00:00 Completed [facility] Pneumococcal 7 Conjugate, PCV7 (Prevnar7) 2005-04-23 00:00:00 Completed [facility] DTaP, Unspecified Formulation 2005-04-23 00:00:00 Completed [facility] Hep B, Adol or Pedi Dosage 2005-04-23 00:00:00 Completed [facility] HIB 4 Dose Schedule 2005-04-23 00:00:00 Completed [facility] Pneumococcal 7 Conjugate, PCV7 (Prevnar7) 2005-04-23 00:00:00 Completed [facility] DTaP, Unspecified Formulation 2005-04-23 00:00:00 Completed [facility] Hep B, Adol or Pedi Dosage 2005-04-23 00:00:00 Completed [facility] HIB 4 Dose Schedule 2005-04-23 00:00:00 Completed [facility] Pneumococcal 7 Conjugate, PCV7 (Prevnar7) 2005-04-23 00:00:00 Completed [facility] DTaP, Unspecified Formulation 2005-04-23 00:00:00 Completed [facility] Hep B, Adol or Pedi Dosage 2005-04-23 00:00:00 Completed [facility] HIB 4 Dose Schedule 2005-04-23 00:00:00 Completed [facility] Pneumococcal 7 Conjugate, PCV7 (Prevnar7) 2005-04-23 00:00:00 Completed [facility] DTaP, Unspecified Formulation 2005-04-23 00:00:00 Completed [facility] DTaP, Unspecified Formulation 2005-04-23 00:00:00 Completed [facility] Hep B, Adol or Pedi Dosage 2005-04-23 00:00:00 Completed [facility] HIB 4 Dose Schedule 2005-04-23 00:00:00 Completed [facility] Pneumococcal 7 Conjugate, PCV7 (Prevnar7) 2005-04-23 00:00:00 Completed [facility] DTaP, Unspecified Formulation 2005-04-23 00:00:00 Completed [facility] Hep B, Adol or Pedi Dosage 2005-04-23 00:00:00 Completed [facility] HIB 4 Dose Schedule 2005-04-23 00:00:00 Completed [facility] Pneumococcal 7 Conjugate, PCV7 (Prevnar7) 2005-04-23 00:00:00 Completed [facility] DTaP, Unspecified Formulation 2005-04-23 00:00:00 Completed [facility] Hep B, Adol or Pedi Dosage 2005-04-23 00:00:00 Completed [facility] HIB 4 Dose Schedule 2005-04-23 00:00:00 Completed [facility] Pneumococcal 7 Conjugate, PCV7 (Prevnar7) 2005-04-23 00:00:00 Completed [facility] Hep B, Adol or Pedi Dosage 2005-04-23 00:00:00 Completed [facility] HIB 4 Dose Schedule 2005-04-23 00:00:00 Completed [facility] Pneumococcal 7 Conjugate, PCV7 (Prevnar7) 2005-04-23 00:00:00 Completed [facility] DTaP, Unspecified Formulation 2005-04-23 00:00:00 Completed [facility] Hep B, Adol or Pedi Dosage 2005-04-23 00:00:00 Completed [facility] HIB 4 Dose Schedule 2005-04-23 00:00:00 Completed [facility] Pneumococcal 7 Conjugate, PCV7 (Prevnar7) 2005-04-23 00:00:00 Completed [facility] DTaP, Unspecified Formulation 2005-04-23 00:00:00 Completed [facility] Hep B, Adol or Pedi Dosage 2005-04-23 00:00:00 Completed [facility] HIB 4 Dose Schedule 2005-04-23 00:00:00 Completed [facility] Pneumococcal 7 Conjugate, PCV7 (Prevnar7) 2005-04-23 00:00:00 Completed [facility] DTaP, Unspecified Formulation 2005-04-23 00:00:00 Completed [facility] Hep B, Adol or Pedi Dosage 2005-04-23 00:00:00 Completed [facility] HIB 4 Dose Schedule 2005-04-23 00:00:00 Completed [facility] Pneumococcal 7 Conjugate, PCV7 (Prevnar7) 2005-04-23 00:00:00 Completed [facility] DTaP, Unspecified Formulation 2005-04-23 00:00:00 Completed [facility] DTaP, Unspecified Formulation 2005-04-23 00:00:00 Completed [facility] Hep B, Adol or Pedi Dosage 2005-04-23 00:00:00 Completed [facility] HIB 4 Dose Schedule 2005-04-23 00:00:00 Completed [facility] Pneumococcal 7 Conjugate, PCV7 (Prevnar7) 2005-04-23 00:00:00 Completed [facility] DTaP, Unspecified Formulation 2005-04-23 00:00:00 Completed [facility] Hep B, Adol or Pedi Dosage 2005-04-23 00:00:00 Completed [facility] HIB 4 Dose Schedule 2005-04-23 00:00:00 Completed [facility] Pneumococcal 7 Conjugate, PCV7 (Prevnar7) 2005-04-23 00:00:00 Completed [facility] DTaP, Unspecified Formulation 2005-04-23 00:00:00 Completed [facility] Hep B, Adol or Pedi Dosage 2005-04-23 00:00:00 Completed [facility] Hep B, Adol or Pedi Dosage 2005-04-23 00:00:00 Completed [facility] HIB 4 Dose Schedule 2005-04-23 00:00:00 Completed [facility] Pneumococcal 7 Conjugate, PCV7 (Prevnar7) 2005-04-23 00:00:00 Completed [facility] HIB 4 Dose Schedule 2005-04-23 00:00:00 Completed [facility] DTaP, Unspecified Formulation 2005-04-23 00:00:00 Completed [facility] Hep B, Adol or Pedi Dosage 2005-04-23 00:00:00 Completed [facility] HIB 4 Dose Schedule 2005-04-23 00:00:00 Completed [facility] Pneumococcal 7 Conjugate, PCV7 (Prevnar7) 2005-04-23 00:00:00 Completed [facility] [facility] Pneumococcal 7 Conjugate, PCV7 (Prevnar7) 2005-04-23 00:00:00 Completed [facility] DTaP, Unspecified Formulation 2005-04-23 00:00:00 Completed [facility] Hep B, Adol or Pedi Dosage 2005-04-23 00:00:00 Completed [facility] HIB 4 Dose Schedule 2005-04-23 00:00:00 Completed [facility] Pneumococcal 7 Conjugate, PCV7 (Prevnar7) 2005-04-23 00:00:00 Completed [facility] DTaP, Unspecified Formulation 2005-04-23 00:00:00 Completed [facility] Hep B, Adol or Pedi Dosage 2005-04-23 00:00:00 Completed [facility] HIB 4 Dose Schedule 2005-04-23 00:00:00 Completed [facility] Pneumococcal 7 Conjugate, PCV7 (Prevnar7) 2005-04-23 00:00:00 Completed [facility] DTaP, Unspecified Formulation 2005-04-23 00:00:00 Completed [facility] Hep B, Adol or Pedi Dosage 2005-04-23 00:00:00 Completed [facility] HIB 4 Dose Schedule 2005-04-23 00:00:00 Completed [facility] Pneumococcal 7 Conjugate, PCV7 (Prevnar7) 2005-04-23 00:00:00 Completed [facility] DTaP, Unspecified Formulation 2005-04-23 00:00:00 Completed [facility] Hep B, Adol or Pedi Dosage 2005-04-23 00:00:00 Completed [facility] HIB 4 Dose Schedule 2005-04-23 00:00:00 Completed [facility] Pneumococcal 7 Conjugate, PCV7 (Prevnar7) 2005-04-23 00:00:00 Completed [facility] DTaP, Unspecified Formulation 2005-04-23 00:00:00 Completed [facility] Hep B, Adol or Pedi Dosage 2005-04-23 00:00:00 Completed [facility] HIB 4 Dose Schedule 2005-04-23 00:00:00 Completed [facility] Pneumococcal 7 Conjugate, PCV7 (Prevnar7) 2005-04-23 00:00:00 Completed [facility] DTaP, Unspecified Formulation 2005-04-23 00:00:00 Completed [facility] Hep B, Adol or Pedi Dosage 2005-04-23 00:00:00 Completed [facility] HIB 4 Dose Schedule 2005-04-23 00:00:00 Completed [facility] DTaP, Unspecified Formulation 2005-04-23 00:00:00 Completed [facility] Pneumococcal 7 Conjugate, PCV7 (Prevnar7) 2005-04-23 00:00:00 Completed [facility] DTaP, Unspecified Formulation 2005-04-23 00:00:00 Completed [facility] Hep B, Adol or Pedi Dosage 2005-04-23 00:00:00 Completed [facility] HIB 4 Dose Schedule 2005-04-23 00:00:00 Completed [facility] Pneumococcal 7 Conjugate, PCV7 (Prevnar7) 2005-04-23 00:00:00 Completed [facility] DTaP, Unspecified Formulation 2005-04-23 00:00:00 Completed [facility] Hep B, Adol or Pedi Dosage 2005-04-23 00:00:00 Completed [facility] HIB 4 Dose Schedule 2005-04-23 00:00:00 Completed [facility] Pneumococcal 7 Conjugate, PCV7 (Prevnar7) 2005-04-23 00:00:00 Completed [facility] DTaP, Unspecified Formulation 2005-04-23 00:00:00 Completed [facility] Hep B, Adol or Pedi Dosage 2005-04-23 00:00:00 Completed [facility] Hep B, Adol or Pedi Dosage 2005-04-23 00:00:00 Completed [facility] HIB 4 Dose Schedule 2005-04-23 00:00:00 Completed [facility] Pneumococcal 7 Conjugate, PCV7 (Prevnar7) 2005-04-23 00:00:00 Completed [facility] HIB 4 Dose Schedule 2005-04-23 00:00:00 Completed [facility] DTaP, Unspecified Formulation 2005-04-23 00:00:00 Completed [facility] Hep B, Adol or Pedi Dosage 2005-04-23 00:00:00 Completed [facility] HIB 4 Dose Schedule 2005-04-23 00:00:00 Completed [facility] Pneumococcal 7 Conjugate, PCV7 (Prevnar7) 2005-04-23 00:00:00 Completed [facility] Pneumococcal 7 Conjugate, PCV7 (Prevnar7) 2005-04-23 00:00:00 Completed [facility] Pneumococcal 7 Conjugate, PCV7 (Prevnar7) 2005-01-04 00:00:00 Completed [facility] IPV 2005-01-04 00:00:00 Completed [facility] DTaP, Unspecified Formulation 2005-01-04 00:00:00 Completed [facility] HIB 4 Dose Schedule 2005-01-04 00:00:00 Completed [facility] Pneumococcal 7 Conjugate, PCV7 (Prevnar7) 2005-01-04 00:00:00 Completed [facility] IPV 2005-01-04 00:00:00 Completed [facility] DTaP, Unspecified Formulation 2005-01-04 00:00:00 Completed [facility] HIB 4 Dose Schedule 2005-01-04 00:00:00 Completed [facility] Pneumococcal 7 Conjugate, PCV7 (Prevnar7) 2005-01-04 00:00:00 Completed [facility] IPV 2005-01-04 00:00:00 Completed [facility] DTaP, Unspecified Formulation 2005-01-04 00:00:00 Completed [facility] HIB 4 Dose Schedule 2005-01-04 00:00:00 Completed [facility] Pneumococcal 7 Conjugate, PCV7 (Prevnar7) 2005-01-04 00:00:00 Completed [facility] IPV 2005-01-04 00:00:00 Completed [facility] DTaP, Unspecified Formulation 2005-01-04 00:00:00 Completed [facility] HIB 4 Dose Schedule 2005-01-04 00:00:00 Completed [facility] Pneumococcal 7 Conjugate, PCV7 (Prevnar7) 2005-01-04 00:00:00 Completed [facility] IPV 2005-01-04 00:00:00 Completed [facility] DTaP, Unspecified Formulation 2005-01-04 00:00:00 Completed [facility] DTaP, Unspecified Formulation 2005-01-04 00:00:00 Completed [facility] HIB 4 Dose Schedule 2005-01-04 00:00:00 Completed [facility] Pneumococcal 7 Conjugate, PCV7 (Prevnar7) 2005-01-04 00:00:00 Completed [facility] IPV 2005-01-04 00:00:00 Completed [facility] DTaP, Unspecified Formulation 2005-01-04 00:00:00 Completed [facility] HIB 4 Dose Schedule 2005-01-04 00:00:00 Completed [facility] Pneumococcal 7 Conjugate, PCV7 (Prevnar7) 2005-01-04 00:00:00 Completed [facility] IPV 2005-01-04 00:00:00 Completed [facility] DTaP, Unspecified Formulation 2005-01-04 00:00:00 Completed [facility] HIB 4 Dose Schedule 2005-01-04 00:00:00 Completed [facility] Pneumococcal 7 Conjugate, PCV7 (Prevnar7) 2005-01-04 00:00:00 Completed [facility] IPV 2005-01-04 00:00:00 Completed [facility] DTaP, Unspecified Formulation 2005-01-04 00:00:00 Completed [facility] HIB 4 Dose Schedule 2005-01-04 00:00:00 Completed [facility] HIB 4 Dose Schedule 2005-01-04 00:00:00 Completed [facility] Pneumococcal 7 Conjugate, PCV7 (Prevnar7) 2005-01-04 00:00:00 Completed [facility] IPV 2005-01-04 00:00:00 Completed [facility] DTaP, Unspecified Formulation 2005-01-04 00:00:00 Completed [facility] HIB 4 Dose Schedule 2005-01-04 00:00:00 Completed [facility] Pneumococcal 7 Conjugate, PCV7 (Prevnar7) 2005-01-04 00:00:00 Completed [facility] IPV 2005-01-04 00:00:00 Completed [facility] Pneumococcal 7 Conjugate, PCV7 (Prevnar7) 2005-01-04 00:00:00 Completed [facility] IPV 2005-01-04 00:00:00 Completed [facility] DTaP, Unspecified Formulation 2005-01-04 00:00:00 Completed [facility] HIB 4 Dose Schedule 2005-01-04 00:00:00 Completed [facility] Pneumococcal 7 Conjugate, PCV7 (Prevnar7) 2005-01-04 00:00:00 Completed [facility] IPV 2005-01-04 00:00:00 Completed [facility] DTaP, Unspecified Formulation 2005-01-04 00:00:00 Completed [facility] HIB 4 Dose Schedule 2005-01-04 00:00:00 Completed [facility] Pneumococcal 7 Conjugate, PCV7 (Prevnar7) 2005-01-04 00:00:00 Completed [facility] IPV 2005-01-04 00:00:00 Completed [facility] DTaP, Unspecified Formulation 2005-01-04 00:00:00 Completed [facility] HIB 4 Dose Schedule 2005-01-04 00:00:00 Completed [facility] DTaP, Unspecified Formulation 2005-01-04 00:00:00 Completed [facility] Pneumococcal 7 Conjugate, PCV7 (Prevnar7) 2005-01-04 00:00:00 Completed [facility] IPV 2005-01-04 00:00:00 Completed [facility] DTaP, Unspecified Formulation 2005-01-04 00:00:00 Completed [facility] HIB 4 Dose Schedule 2005-01-04 00:00:00 Completed [facility] Pneumococcal 7 Conjugate, PCV7 (Prevnar7) 2005-01-04 00:00:00 Completed [facility] IPV 2005-01-04 00:00:00 Completed [facility] DTaP, Unspecified Formulation 2005-01-04 00:00:00 Completed [facility] HIB 4 Dose Schedule 2005-01-04 00:00:00 Completed [facility] Pneumococcal 7 Conjugate, PCV7 (Prevnar7) 2005-01-04 00:00:00 Completed [facility] IPV 2005-01-04 00:00:00 Completed [facility] DTaP, Unspecified Formulation 2005-01-04 00:00:00 Completed [facility] HIB 4 Dose Schedule 2005-01-04 00:00:00 Completed [facility] Pneumococcal 7 Conjugate, PCV7 (Prevnar7) 2005-01-04 00:00:00 Completed [facility] IPV 2005-01-04 00:00:00 Completed [facility] HIB 4 Dose Schedule 2005-01-04 00:00:00 Completed [facility] DTaP, Unspecified Formulation 2005-01-04 00:00:00 Completed [facility] HIB 4 Dose Schedule 2005-01-04 00:00:00 Completed [facility] Pneumococcal 7 Conjugate, PCV7 (Prevnar7) 2005-01-04 00:00:00 Completed [facility] IPV 2005-01-04 00:00:00 Completed [facility] DTaP, Unspecified Formulation 2005-01-04 00:00:00 Completed [facility] Pneumococcal 7 Conjugate, PCV7 (Prevnar7) 2005-01-04 00:00:00 Completed [facility] IPV 2005-01-04 00:00:00 Completed [facility] HIB 4 Dose Schedule 2005-01-04 00:00:00 Completed [facility] Pneumococcal 7 Conjugate, PCV7 (Prevnar7) 2005-01-04 00:00:00 Completed [facility] IPV 2005-01-04 00:00:00 Completed [facility] DTaP, Unspecified Formulation 2005-01-04 00:00:00 Completed [facility] HIB 4 Dose Schedule 2005-01-04 00:00:00 Completed [facility] Pneumococcal 7 Conjugate, PCV7 (Prevnar7) 2005-01-04 00:00:00 Completed [facility] IPV 2005-01-04 00:00:00 Completed [facility] DTaP, Unspecified Formulation 2005-01-04 00:00:00 Completed [facility] HIB 4 Dose Schedule 2005-01-04 00:00:00 Completed [facility] Pneumococcal 7 Conjugate, PCV7 (Prevnar7) 2005-01-04 00:00:00 Completed [facility] IPV 2005-01-04 00:00:00 Completed [facility] DTaP, Unspecified Formulation 2005-01-04 00:00:00 Completed [facility] DTaP, Unspecified Formulation 2005-01-04 00:00:00 Completed [facility] HIB 4 Dose Schedule 2005-01-04 00:00:00 Completed [facility] Pneumococcal 7 Conjugate, PCV7 (Prevnar7) 2005-01-04 00:00:00 Completed [facility] IPV 2005-01-04 00:00:00 Completed [facility] DTaP, Unspecified Formulation 2005-01-04 00:00:00 Completed [facility] HIB 4 Dose Schedule 2005-01-04 00:00:00 Completed [facility] Pneumococcal 7 Conjugate, PCV7 (Prevnar7) 2005-01-04 00:00:00 Completed [facility] IPV 2005-01-04 00:00:00 Completed [facility] DTaP, Unspecified Formulation 2005-01-04 00:00:00 Completed [facility] HIB 4 Dose Schedule 2005-01-04 00:00:00 Completed [facility] Pneumococcal 7 Conjugate, PCV7 (Prevnar7) 2005-01-04 00:00:00 Completed [facility] IPV 2005-01-04 00:00:00 Completed [facility] HIB 4 Dose Schedule 2005-01-04 00:00:00 Completed [facility] Pneumococcal 7 Conjugate, PCV7 (Prevnar7) 2005-01-04 00:00:00 Completed [facility] IPV 2005-01-04 00:00:00 Completed [facility] DTaP, Unspecified Formulation 2005-01-04 00:00:00 Completed [facility] HIB 4 Dose Schedule 2005-01-04 00:00:00 Completed [facility] Pneumococcal 7 Conjugate, PCV7 (Prevnar7) 2005-01-04 00:00:00 Completed [facility] IPV 2005-01-04 00:00:00 Completed [facility] DTaP, Unspecified Formulation 2005-01-04 00:00:00 Completed [facility] HIB 4 Dose Schedule 2005-01-04 00:00:00 Completed [facility] Pneumococcal 7 Conjugate, PCV7 (Prevnar7) 2005-01-04 00:00:00 Completed [facility] IPV 2005-01-04 00:00:00 Completed [facility] DTaP, Unspecified Formulation 2005-01-04 00:00:00 Completed [facility] HIB 4 Dose Schedule 2005-01-04 00:00:00 Completed [facility] Pneumococcal 7 Conjugate, PCV7 (Prevnar7) 2005-01-04 00:00:00 Completed [facility] IPV 2005-01-04 00:00:00 Completed [facility] DTaP, Unspecified Formulation 2005-01-04 00:00:00 Completed [facility] DTaP, Unspecified Formulation 2005-01-04 00:00:00 Completed [facility] HIB 4 Dose Schedule 2005-01-04 00:00:00 Completed [facility] Pneumococcal 7 Conjugate, PCV7 (Prevnar7) 2005-01-04 00:00:00 Completed [facility] IPV 2005-01-04 00:00:00 Completed [facility] DTaP, Unspecified Formulation 2005-01-04 00:00:00 Completed [facility] HIB 4 Dose Schedule 2005-01-04 00:00:00 Completed [facility] Pneumococcal 7 Conjugate, PCV7 (Prevnar7) 2005-01-04 00:00:00 Completed [facility] IPV 2005-01-04 00:00:00 Completed [facility] DTaP, Unspecified Formulation 2005-01-04 00:00:00 Completed [facility] HIB 4 Dose Schedule 2005-01-04 00:00:00 Completed [facility] Pneumococcal 7 Conjugate, PCV7 (Prevnar7) 2005-01-04 00:00:00 Completed [facility] IPV 2005-01-04 00:00:00 Completed [facility] HIB 4 Dose Schedule 2005-01-04 00:00:00 Completed [facility] DTaP, Unspecified Formulation 2005-01-04 00:00:00 Completed [facility] HIB 4 Dose Schedule 2005-01-04 00:00:00 Completed [facility] Pneumococcal 7 Conjugate, PCV7 (Prevnar7) 2005-01-04 00:00:00 Completed [facility] IPV 2005-01-04 00:00:00 Completed [facility] DTaP, Unspecified Formulation 2005-01-04 00:00:00 Completed [facility] Pneumococcal 7 Conjugate, PCV7 (Prevnar7) 2005-01-04 00:00:00 Completed [facility] IPV 2005-01-04 00:00:00 Completed [facility] HIB 4 Dose Schedule 2005-01-04 00:00:00 Completed [facility] Pneumococcal 7 Conjugate, PCV7 (Prevnar7) 2005-01-04 00:00:00 Completed [facility] IPV 2005-01-04 00:00:00 Completed [facility] DTaP, Unspecified Formulation 2005-01-04 00:00:00 Completed [facility] HIB 4 Dose Schedule 2005-01-04 00:00:00 Completed [facility] Pneumococcal 7 Conjugate, PCV7 (Prevnar7) 2005-01-04 00:00:00 Completed [facility] IPV 2005-01-04 00:00:00 Completed [facility] DTaP, Unspecified Formulation 2005-01-04 00:00:00 Completed [facility] HIB 4 Dose Schedule 2005-01-04 00:00:00 Completed [facility] Pneumococcal 7 Conjugate, PCV7 (Prevnar7) 2005-01-04 00:00:00 Completed [facility] IPV 2005-01-04 00:00:00 Completed [facility] DTaP, Unspecified Formulation 2005-01-04 00:00:00 Completed [facility] HIB 4 Dose Schedule 2005-01-04 00:00:00 Completed [facility] Pneumococcal 7 Conjugate, PCV7 (Prevnar7) 2005-01-04 00:00:00 Completed [facility] IPV 2005-01-04 00:00:00 Completed [facility] DTaP, Unspecified Formulation 2005-01-04 00:00:00 Completed [facility] HIB 4 Dose Schedule 2005-01-04 00:00:00 Completed [facility] Pneumococcal 7 Conjugate, PCV7 (Prevnar7) 2005-01-04 00:00:00 Completed [facility] IPV 2005-01-04 00:00:00 Completed [facility] DTaP, Unspecified Formulation 2005-01-04 00:00:00 Completed [facility] DTaP, Unspecified Formulation 2005-01-04 00:00:00 Completed [facility] HIB 4 Dose Schedule 2005-01-04 00:00:00 Completed [facility] Pneumococcal 7 Conjugate, PCV7 (Prevnar7) 2005-01-04 00:00:00 Completed [facility] IPV 2005-01-04 00:00:00 Completed [facility] DTaP, Unspecified Formulation 2005-01-04 00:00:00 Completed [facility] HIB 4 Dose Schedule 2005-01-04 00:00:00 Completed [facility] Pneumococcal 7 Conjugate, PCV7 (Prevnar7) 2005-01-04 00:00:00 Completed [facility] IPV 2005-01-04 00:00:00 Completed [facility] DTaP, Unspecified Formulation 2005-01-04 00:00:00 Completed [facility] HIB 4 Dose Schedule 2005-01-04 00:00:00 Completed [facility] Pneumococcal 7 Conjugate, PCV7 (Prevnar7) 2005-01-04 00:00:00 Completed [facility] IPV 2005-01-04 00:00:00 Completed [facility] DTaP, Unspecified Formulation 2005-01-04 00:00:00 Completed [facility] HIB 4 Dose Schedule 2005-01-04 00:00:00 Completed [facility] Pneumococcal 7 Conjugate, PCV7 (Prevnar7) 2005-01-04 00:00:00 Completed [facility] IPV 2005-01-04 00:00:00 Completed [facility] HIB 4 Dose Schedule 2005-01-04 00:00:00 Completed [facility] DTaP, Unspecified Formulation 2005-01-04 00:00:00 Completed [facility] HIB 4 Dose Schedule 2005-01-04 00:00:00 Completed [facility] Pneumococcal 7 Conjugate, PCV7 (Prevnar7) 2005-01-04 00:00:00 Completed [facility] IPV 2005-01-04 00:00:00 Completed [facility] Pediarix (dtap/hep B/ipv) 2004 00:00:00 Completed [facility] HIB 4 Dose Schedule 2004 00:00:00 Completed [facility] Pneumococcal 7 Conjugate, PCV7 (Prevnar7) 2004 00:00:00 Completed [facility] Pediarix (dtap/hep B/ipv) 2004 00:00:00 Completed [facility] HIB 4 Dose Schedule 2004 00:00:00 Completed [facility] Pneumococcal 7 Conjugate, PCV7 (Prevnar7) 2004 00:00:00 Completed [facility] Pediarix (dtap/hep B/ipv) 2004 00:00:00 Completed [facility] HIB 4 Dose Schedule 2004 00:00:00 Completed [facility] Pneumococcal 7 Conjugate, PCV7 (Prevnar7) 2004 00:00:00 Completed [facility] Pediarix (dtap/hep B/ipv) 2004 00:00:00 Completed [facility] HIB 4 Dose Schedule 2004 00:00:00 Completed [facility] Pneumococcal 7 Conjugate, PCV7 (Prevnar7) 2004 00:00:00 Completed [facility] Pediarix (dtap/hep B/ipv) 2004 00:00:00 Completed [facility] Pediarix (dtap/hep B/ipv) 2004 00:00:00 Completed [facility] HIB 4 Dose Schedule 2004 00:00:00 Completed [facility] Pneumococcal 7 Conjugate, PCV7 (Prevnar7) 2004 00:00:00 Completed [facility] Pediarix (dtap/hep B/ipv) 2004 00:00:00 Completed [facility] HIB 4 Dose Schedule 2004 00:00:00 Completed [facility] Pneumococcal 7 Conjugate, PCV7 (Prevnar7) 2004 00:00:00 Completed [facility] Pediarix (dtap/hep B/ipv) 2004 00:00:00 Completed [facility] HIB 4 Dose Schedule 2004 00:00:00 Completed [facility] Pneumococcal 7 Conjugate, PCV7 (Prevnar7) 2004 00:00:00 Completed [facility] HIB 4 Dose Schedule 2004 00:00:00 Completed [facility] Pediarix (dtap/hep B/ipv) 2004 00:00:00 Completed [facility] HIB 4 Dose Schedule 2004 00:00:00 Completed [facility] Pneumococcal 7 Conjugate, PCV7 (Prevnar7) 2004 00:00:00 Completed [facility] Pneumococcal 7 Conjugate, PCV7 (Prevnar7) 2004 00:00:00 Completed [facility] Pediarix (dtap/hep B/ipv) 2004 00:00:00 Completed [facility] HIB 4 Dose Schedule 2004 00:00:00 Completed [facility] Pneumococcal 7 Conjugate, PCV7 (Prevnar7) 2004 00:00:00 Completed [facility] Pediarix (dtap/hep B/ipv) 2004 00:00:00 Completed [facility] HIB 4 Dose Schedule 2004 00:00:00 Completed [facility] Pneumococcal 7 Conjugate, PCV7 (Prevnar7) 2004 00:00:00 Completed [facility] Pediarix (dtap/hep B/ipv) 2004 00:00:00 Completed [facility] HIB 4 Dose Schedule 2004 00:00:00 Completed [facility] Pneumococcal 7 Conjugate, PCV7 (Prevnar7) 2004 00:00:00 Completed [facility] Pediarix (dtap/hep B/ipv) 2004 00:00:00 Completed [facility] HIB 4 Dose Schedule 2004 00:00:00 Completed [facility] Pneumococcal 7 Conjugate, PCV7 (Prevnar7) 2004 00:00:00 Completed [facility] Pediarix (dtap/hep B/ipv) 2004 00:00:00 Completed [facility] Pediarix (dtap/hep B/ipv) 2004 00:00:00 Completed [facility] HIB 4 Dose Schedule 2004 00:00:00 Completed [facility] Pneumococcal 7 Conjugate, PCV7 (Prevnar7) 2004 00:00:00 Completed [facility] Pediarix (dtap/hep B/ipv) 2004 00:00:00 Completed [facility] HIB 4 Dose Schedule 2004 00:00:00 Completed [facility] Pneumococcal 7 Conjugate, PCV7 (Prevnar7) 2004 00:00:00 Completed [facility] Pediarix (dtap/hep B/ipv) 2004 00:00:00 Completed [facility] HIB 4 Dose Schedule 2004 00:00:00 Completed [facility] HIB 4 Dose Schedule 2004 00:00:00 Completed [facility] Pneumococcal 7 Conjugate, PCV7 (Prevnar7) 2004 00:00:00 Completed [facility] Pediarix (dtap/hep B/ipv) 2004 00:00:00 Completed [facility] HIB 4 Dose Schedule 2004 00:00:00 Completed [facility] Pneumococcal 7 Conjugate, PCV7 (Prevnar7) 2004 00:00:00 Completed [facility] Pneumococcal 7 Conjugate, PCV7 (Prevnar7) 2004 00:00:00 Completed [facility] Pediarix (dtap/hep B/ipv) 2004 00:00:00 Completed [facility] HIB 4 Dose Schedule 2004 00:00:00 Completed [facility] Pneumococcal 7 Conjugate, PCV7 (Prevnar7) 2004 00:00:00 Completed [facility] Pediarix (dtap/hep B/ipv) 2004 00:00:00 Completed [facility] HIB 4 Dose Schedule 2004 00:00:00 Completed [facility] Pneumococcal 7 Conjugate, PCV7 (Prevnar7) 2004 00:00:00 Completed [facility] Pediarix (dtap/hep B/ipv) 2004 00:00:00 Completed [facility] HIB 4 Dose Schedule 2004 00:00:00 [facility] [facility] 7 Conjugate, PCV7 (Prevnar7) 2004 00:00:00 Completed [facility] Pediarix (dtap/hep B/ipv) 2004 00:00:00 Completed [facility] HIB 4 Dose Schedule 2004 00:00:00 Completed [facility] Pneumococcal 7 Conjugate, PCV7 (Prevnar7) 2004 00:00:00 Completed [facility] Pediarix (dtap/hep B/ipv) 2004 00:00:00 Completed [facility] Pediarix (dtap/hep B/ipv) 2004 00:00:00 Completed [facility] HIB 4 Dose Schedule 2004 00:00:00 Completed [facility] Pneumococcal 7 Conjugate, PCV7 (Prevnar7) 2004 00:00:00 Completed [facility] Pediarix (dtap/hep B/ipv) 2004 00:00:00 Completed [facility] HIB 4 Dose Schedule 2004 00:00:00 Completed [facility] Pneumococcal 7 Conjugate, PCV7 (Prevnar7) 2004 00:00:00 Completed [facility] HIB 4 Dose Schedule 2004 00:00:00 Completed [facility] Pneumococcal 7 Conjugate, PCV7 (Prevnar7) 2004 00:00:00 Completed [facility] Pediarix (dtap/hep B/ipv) 2004 00:00:00 Completed [facility] HIB 4 Dose Schedule 2004 00:00:00 Completed [facility] Pneumococcal 7 Conjugate, PCV7 (Prevnar7) 2004 00:00:00 Completed [facility] Pediarix (dtap/hep B/ipv) 2004 00:00:00 Completed [facility] HIB 4 Dose Schedule 2004 00:00:00 Completed [facility] Pneumococcal 7 Conjugate, PCV7 (Prevnar7) 2004 00:00:00 Completed [facility] Pediarix (dtap/hep B/ipv) 2004 00:00:00 Completed [facility] HIB 4 Dose Schedule 2004 00:00:00 Completed [facility] Pneumococcal 7 Conjugate, PCV7 (Prevnar7) 2004 00:00:00 Completed [facility] Pediarix (dtap/hep B/ipv) 2004 00:00:00 Completed [facility] Pediarix (dtap/hep B/ipv) 2004 00:00:00 Completed [facility] HIB 4 Dose Schedule 2004 00:00:00 Completed [facility] Pneumococcal 7 Conjugate, PCV7 (Prevnar7) 2004 00:00:00 Completed [facility] Pediarix (dtap/hep B/ipv) 2004 00:00:00 Completed [facility] HIB 4 Dose Schedule 2004 00:00:00 Completed [facility] Pneumococcal 7 Conjugate, PCV7 (Prevnar7) 2004 00:00:00 Completed [facility] Pediarix (dtap/hep B/ipv) 2004 00:00:00 Completed [facility] HIB 4 Dose Schedule 2004 00:00:00 Completed [facility] Pneumococcal 7 Conjugate, PCV7 (Prevnar7) 2004 00:00:00 Completed [facility] HIB 4 Dose Schedule 2004 00:00:00 Completed [facility] Pediarix (dtap/hep B/ipv) 2004 00:00:00 Completed [facility] HIB 4 Dose Schedule 2004 00:00:00 Completed [facility] Pneumococcal 7 Conjugate, PCV7 (Prevnar7) 2004 00:00:00 Completed [facility] Pneumococcal 7 Conjugate, PCV7 (Prevnar7) 2004 00:00:00 Completed [facility] Pediarix (dtap/hep B/ipv) 2004 00:00:00 Completed [facility] HIB 4 Dose Schedule 2004 00:00:00 Completed [facility] Pneumococcal 7 Conjugate, PCV7 (Prevnar7) 2004 00:00:00 Completed [facility] Pediarix (dtap/hep B/ipv) 2004 00:00:00 Completed [facility] HIB 4 Dose Schedule 2004 00:00:00 Completed [facility] Pneumococcal 7 Conjugate, PCV7 (Prevnar7) 2004 00:00:00 Completed [facility] Pediarix (dtap/hep B/ipv) 2004 00:00:00 Completed [facility] HIB 4 Dose Schedule 2004 00:00:00 Completed [facility] Pneumococcal 7 Conjugate, PCV7 (Prevnar7) 2004 00:00:00 Completed [facility] Pediarix (dtap/hep B/ipv) 2004 00:00:00 Completed [facility] HIB 4 Dose Schedule 2004 00:00:00 Completed [facility] Pneumococcal 7 Conjugate, PCV7 (Prevnar7) 2004 00:00:00 Completed [facility] Pediarix (dtap/hep B/ipv) 2004 00:00:00 Completed [facility] HIB 4 Dose Schedule 2004 00:00:00 Completed [facility] Pneumococcal 7 Conjugate, PCV7 (Prevnar7) 2004 00:00:00 Completed [facility] Pediarix (dtap/hep B/ipv) 2004 00:00:00 Completed [facility] HIB 4 Dose Schedule 2004 00:00:00 Completed [facility] Pneumococcal 7 Conjugate, PCV7 (Prevnar7) 2004 00:00:00 Completed [facility] Pediarix (dtap/hep B/ipv) 2004 00:00:00 Completed [facility] Pediarix (dtap/hep B/ipv) 2004 00:00:00 Completed [facility] HIB 4 Dose Schedule 2004 00:00:00 Completed [facility] Pneumococcal 7 Conjugate, PCV7 (Prevnar7) 2004 00:00:00 Completed [facility] Pediarix (dtap/hep B/ipv) 2004 00:00:00 Completed [facility] HIB 4 Dose Schedule 2004 00:00:00 Completed [facility] Pneumococcal 7 Conjugate, PCV7 (Prevnar7) 2004 00:00:00 Completed [facility] Pediarix (dtap/hep B/ipv) 2004 00:00:00 Completed [facility] HIB 4 Dose Schedule 2004 00:00:00 Completed [facility] HIB 4 Dose Schedule 2004 00:00:00 Completed [facility] Pneumococcal 7 Conjugate, PCV7 (Prevnar7) 2004 00:00:00 Completed [facility] Pediarix (dtap/hep B/ipv) 2004 00:00:00 Completed [facility] Pneumococcal 7 Conjugate, PCV7 (Prevnar7) 2004 00:00:00 Completed [facility] HIB 4 Dose Schedule 2004 00:00:00 Completed [facility] Pneumococcal 7 Conjugate, PCV7 (Prevnar7) 2004 00:00:00 Completed [facility] Hep B, Adol or Pedi Dosage 2004 00:00:00 Completed [facility] Hep B, Adol or Pedi Dosage 2004 00:00:00 Completed [facility] Hep B, Adol or Pedi Dosage 2004 00:00:00 Completed [facility] Hep B, Adol or Pedi Dosage 2004 00:00:00 Completed [facility] Hep B, Adol or Pedi Dosage 2004 00:00:00 Completed [facility] Hep B, Adol or Pedi Dosage 2004 00:00:00 Completed [facility] Hep B, Adol or Pedi Dosage 2004 00:00:00 Completed [facility] Hep B, Adol or Pedi Dosage 2004 00:00:00 Completed [facility] Hep B, Adol or Pedi Dosage 2004 00:00:00 Completed [facility] Hep B, Adol or Pedi Dosage 2004 00:00:00 Completed [facility] Hep B, Adol or Pedi Dosage 2004 00:00:00 Completed [facility] Hep B, Adol or Pedi Dosage 2004 00:00:00 Completed [facility] Hep B, Adol or Pedi Dosage 2004 00:00:00 Completed [facility] Hep B, Adol or Pedi Dosage 2004 00:00:00 Completed [facility] Hep B, Adol or Pedi Dosage 2004 00:00:00 Completed [facility] Hep B, Adol or Pedi Dosage 2004 00:00:00 Completed [facility] Hep B, Adol or Pedi Dosage 2004 00:00:00 Completed [facility] Hep B, Adol or Pedi Dosage 2004 00:00:00 Completed [facility] Hep B, Adol or Pedi Dosage 2004 00:00:00 Completed [facility] Hep B, Adol or Pedi Dosage 2004 00:00:00 Completed [facility] Hep B, Adol or Pedi Dosage 2004 00:00:00 Completed [facility] Hep B, Adol or Pedi Dosage 2004 00:00:00 Completed [facility] Hep B, Adol or Pedi Dosage 2004 00:00:00 Completed [facility] Hep B, Adol or Pedi Dosage 2004 00:00:00 Completed [facility] Hep B, Adol or Pedi Dosage 2004 00:00:00 Completed [facility] Hep B, Adol or Pedi Dosage 2004 00:00:00 Completed [facility] Hep B, Adol or Pedi Dosage 2004 00:00:00 Completed [facility] Hep B, Adol or Pedi Dosage 2004 00:00:00 Completed [facility] Hep B, Adol or Pedi Dosage 2004 00:00:00 Completed [facility] Hep B, Adol or Pedi Dosage 2004 00:00:00 Completed [facility] Hep B, Adol or Pedi Dosage 2004 00:00:00 Completed [facility] Hep B, Adol or Pedi Dosage 2004 00:00:00 Completed [facility] Hep B, Adol or Pedi Dosage 2004 00:00:00 Completed [facility] Hep B, Adol or Pedi Dosage 2004 00:00:00 Completed [facility] Hep B, Adol or Pedi Dosage 2004 00:00:00 Completed [facility] Hep B, Adol or Pedi Dosage 2004 00:00:00 Completed [facility] Hep B, Adol or Pedi Dosage 2004 00:00:00 Completed [facility] Hep B, Adol or Pedi Dosage 2004 00:00:00 Completed [facility] Hep B, Adol or Pedi Dosage 2004 00:00:00 Completed [facility] Hep B, Adol or Pedi Dosage 2004 00:00:00 Completed [facility] Hep B, Adol or Pedi Dosage 2004 00:00:00 Completed [facility] Hep B, Adol or Pedi Dosage 2004 00:00:00 Completed [facility] Hep B, Adol or Pedi Dosage 2004 00:00:00 Completed [facility] Hep B, Adol or Pedi Dosage 2004 00:00:00 Completed [facility] SARS-COV-2 COVID-19 PFIZER VACCINE Unknown Completed [facility] SARS-COV-2 COVID-19 PFIZER VACCINE Unknown Completed [facility] SARS-COV-2 COVID-19 PFIZER VACCINE Unknown Completed [facility] DTaP, Unspecified Formulation Unknown Completed [facility] DTaP, Unspecified Formulation Unknown Completed [facility] DTaP, Unspecified Formulation Unknown Completed [facility] Pediarix (dtap/hep B/ipv) Unknown Completed [facility] Dtap/ipv Unknown Completed [facility] Influenza Virus Vaccine Quad .5 mL IM 6+ MO (FLUZONE/FLULAVAL/F LUARIX) Unknown Completed [facility] Flu Trivalent Unknown Completed [facility] Flu Trivalent Unknown Completed [facility] Influenza Virus Vaccine - Whole Unknown Completed [facility] HEPATITIS A Unknown Completed [facility] HEPATITIS A Unknown Completed [facility] Hep B, Adol or Pedi Dosage Unknown Completed [facility] Hep B, Adol or Pedi Dosage Unknown Completed [facility] HIB 4 Dose Schedule Unknown Completed [facility] HIB 4 Dose Schedule Unknown Completed [facility] HIB 4 Dose Schedule Unknown Completed [facility] HIB 4 Dose Schedule Unknown Completed [facility] MMR Unknown Completed [facility] MMR Unknown Completed [facility] Pneumococcal 7 Conjugate, PCV7 (Prevnar7) Unknown Completed [facility] Pneumococcal 7 Conjugate, PCV7 (Prevnar7) Unknown Completed [facility] Pneumococcal 7 Conjugate, PCV7 (Prevnar7) Unknown Completed [facility] Pneumococcal 7 Conjugate, PCV7 (Prevnar7) Unknown Completed [facility] IPV Unknown Completed [facility] IPV Unknown Completed [facility] Varicella (varivax)(chicken pox) Unknown Completed [facility] Varicella (varivax)(chicken pox) Unknown Completed [facility] Influenza Virus Vaccine Quad IM, Preserv and ABX Free 6 MO-64 YRS (FLUCELVAX) Unknown Completed [facility] SARS-COV-2 COVID-19 PFIZER VACCINE Unknown Completed [facility] SARS-COV-2 COVID-19 PFIZER VACCINE Unknown Completed [facility] SARS-COV-2 COVID-19 PFIZER VACCINE Unknown Completed [facility] DTaP, Unspecified Formulation Unknown Completed [facility] DTaP, Unspecified Formulation Unknown Completed [facility] DTaP, Unspecified Formulation Unknown Completed [facility] Pediarix (dtap/hep B/ipv) Unknown Completed [facility] Dtap/ipv Unknown Completed [facility] Influenza Virus Vaccine Quad .5 mL IM 6+ MO (FLUZONE/FLULAVAL/F LUARIX) Unknown Completed [facility] Flu Trivalent Unknown Completed [facility] Flu Trivalent Unknown Completed [facility] Influenza Virus Vaccine - Whole Unknown Completed [facility] HEPATITIS A Unknown Completed [facility] HEPATITIS A Unknown Completed [facility] Hep B, Adol or Pedi Dosage Unknown Completed [facility] Hep B, Adol or Pedi Dosage Unknown Completed [facility] HIB 4 Dose Schedule Unknown Completed [facility] HIB 4 Dose Schedule Unknown Completed [facility] HIB 4 Dose Schedule Unknown Completed [facility] HIB 4 Dose Schedule Unknown Completed [facility] MMR Unknown Completed [facility] MMR Unknown Completed [facility] Pneumococcal 7 Conjugate, PCV7 (Prevnar7) Unknown Completed [facility] Pneumococcal 7 Conjugate, PCV7 (Prevnar7) Unknown Completed [facility] Pneumococcal 7 Conjugate, PCV7 (Prevnar7) Unknown Completed [facility] Pneumococcal 7 Conjugate, PCV7 (Prevnar7) Unknown Completed [facility] IPV Unknown Completed [facility] IPV Unknown Completed [facility] Varicella (varivax)(chicken pox) Unknown Completed [facility] Varicella (varivax)(chicken pox) Unknown Completed [facility] Influenza Virus Vaccine Quad IM, Preserv and ABX Free 6 MO-64 YRS (FLUCELVAX) Unknown Completed [facility] SARS-COV-2 COVID-19 PFIZER VACCINE Unknown Completed [facility] SARS-COV-2 COVID-19 PFIZER VACCINE Unknown Completed [facility] SARS-COV-2 COVID-19 PFIZER VACCINE Unknown Completed [facility] DTaP, Unspecified Formulation Unknown Completed [facility] DTaP, Unspecified Formulation Unknown Completed [facility] DTaP, Unspecified Formulation Unknown Completed [facility] Pediarix (dtap/hep B/ipv) Unknown Completed [facility] Dtap/ipv Unknown Completed [facility] Influenza Virus Vaccine Quad .5 mL IM 6+ MO (FLUZONE/FLULAVAL/F LUARIX) Unknown Completed [facility] Flu Trivalent Unknown Completed [facility] Flu Trivalent Unknown Completed [facility] Influenza Virus Vaccine - Whole Unknown Completed [facility] HEPATITIS A Unknown Completed [facility] HEPATITIS A Unknown Completed [facility] Hep B, Adol or Pedi Dosage Unknown Completed [facility] Hep B, Adol or Pedi Dosage Unknown Completed [facility] HIB 4 Dose Schedule Unknown Completed [facility] HIB 4 Dose Schedule Unknown Completed [facility] HIB 4 Dose Schedule Unknown Completed [facility] HIB 4 Dose Schedule Unknown Completed [facility] MMR Unknown Completed [facility] MMR Unknown Completed [facility] Pneumococcal 7 Conjugate, PCV7 (Prevnar7) Unknown Completed [facility] Pneumococcal 7 Conjugate, PCV7 (Prevnar7) Unknown Completed [facility] Pneumococcal 7 Conjugate, PCV7 (Prevnar7) Unknown Completed [facility] Pneumococcal 7 Conjugate, PCV7 (Prevnar7) Unknown Completed [facility] IPV Unknown Completed [facility] IPV Unknown Completed [facility] Varicella (varivax)(chicken pox) Unknown Completed [facility] Varicella (varivax)(chicken pox) Unknown Completed [facility] Influenza Virus Vaccine Quad IM, Preserv and ABX Free 6 MO-64 YRS (FLUCELVAX) Unknown Completed [facility] SARS-COV-2 COVID-19 PFIZER VACCINE Unknown Completed [facility] SARS-COV-2 COVID-19 PFIZER VACCINE Unknown Completed [facility] SARS-COV-2 COVID-19 PFIZER VACCINE Unknown Completed [facility] DTaP, Unspecified Formulation Unknown Completed [facility] DTaP, Unspecified Formulation Unknown Completed [facility] DTaP, Unspecified Formulation Unknown Completed [facility] Pediarix (dtap/hep B/ipv) Unknown Completed [facility] Dtap/ipv Unknown Completed [facility] Influenza Virus Vaccine Quad .5 mL IM 6+ MO (FLUZONE/FLULAVAL/F LUARIX) Unknown Completed [facility] Flu Trivalent Unknown Completed [facility] Flu Trivalent Unknown Completed [facility] Influenza Virus Vaccine - Whole Unknown Completed [facility] HEPATITIS A Unknown Completed [facility] HEPATITIS A Unknown Completed [facility] Hep B, Adol or Pedi Dosage Unknown Completed [facility] Hep B, Adol or Pedi Dosage Unknown Completed [facility] HIB 4 Dose Schedule Unknown Completed [facility] HIB 4 Dose Schedule Unknown Completed [facility] HIB 4 Dose Schedule Unknown Completed [facility] HIB 4 Dose Schedule Unknown Completed [facility] MMR Unknown Completed [facility] MMR Unknown Completed [facility] Pneumococcal 7 Conjugate, PCV7 (Prevnar7) Unknown Completed [facility] Pneumococcal 7 Conjugate, PCV7 (Prevnar7) Unknown Completed [facility] Pneumococcal 7 Conjugate, PCV7 (Prevnar7) Unknown Completed [facility] Pneumococcal 7 Conjugate, PCV7 (Prevnar7) Unknown Completed [facility] IPV Unknown Completed [facility] IPV Unknown Completed [facility] Varicella (varivax)(chicken pox) Unknown Completed [facility] Varicella (varivax)(chicken pox) Unknown Completed [facility] Influenza Virus Vaccine Quad IM, Preserv and ABX Free 6 MO-64 YRS (FLUCELVAX) Unknown Completed [facility] Influenza Virus Vaccine Quad IM, Preserv and ABX Free 6 MO-64 YRS (FLUCELVAX) Unknown Completed [facility] SARS-COV-2 COVID-19 PFIZER VACCINE Unknown Completed [facility] SARS-COV-2 COVID-19 PFIZER VACCINE Unknown Completed [facility] SARS-COV-2 COVID-19 PFIZER VACCINE Unknown Completed [facility] DTaP, Unspecified Formulation Unknown Completed [facility] DTaP, Unspecified Formulation Unknown Completed [facility] DTaP, Unspecified Formulation Unknown Completed [facility] Pediarix (dtap/hep B/ipv) Unknown Completed [facility] Dtap/ipv Unknown Completed [facility] Influenza Virus Vaccine Quad .5 mL IM 6+ MO (FLUZONE/FLULAVAL/F LUARIX) Unknown Completed [facility] Flu Trivalent Unknown Completed [facility] Flu Trivalent Unknown Completed [facility] Influenza Virus Vaccine - Whole Unknown Completed [facility] HEPATITIS A Unknown Completed [facility] HEPATITIS A Unknown Completed [facility] Hep B, Adol or Pedi Dosage Unknown Completed [facility] Hep B, Adol or Pedi Dosage Unknown Completed [facility] HIB 4 Dose Schedule Unknown Completed [facility] HIB 4 Dose Schedule Unknown Completed [facility] HIB 4 Dose Schedule Unknown Completed [facility] HIB 4 Dose Schedule Unknown Completed [facility] MMR Unknown Completed [facility] MMR Unknown Completed [facility] Pneumococcal 7 Conjugate, PCV7 (Prevnar7) Unknown Completed [facility] Pneumococcal 7 Conjugate, PCV7 (Prevnar7) Unknown Completed [facility] Pneumococcal 7 Conjugate, PCV7 (Prevnar7) Unknown Completed [facility] Pneumococcal 7 Conjugate, PCV7 (Prevnar7) Unknown Completed [facility] IPV Unknown Completed [facility] IPV Unknown Completed [facility] Varicella (varivax)(chicken pox) Unknown Completed [facility] Varicella (varivax)(chicken pox) Unknown Completed [facility] Influenza Virus Vaccine Quad IM, Preserv and ABX Free 6 MO-64 YRS (FLUCELVAX) Unknown Completed [facility] Influenza Virus Vaccine Quad IM, Preserv and ABX Free 6 MO-64 YRS (FLUCELVAX) Unknown Completed [facility] SARS-COV-2 COVID-19 PFIZER VACCINE Unknown Completed [facility] SARS-COV-2 COVID-19 PFIZER VACCINE Unknown Completed [facility] SARS-COV-2 COVID-19 PFIZER VACCINE Unknown Completed [facility] DTaP, Unspecified Formulation Unknown Completed [facility] DTaP, Unspecified Formulation Unknown Completed [facility] DTaP, Unspecified Formulation Unknown Completed [facility] Pediarix (dtap/hep B/ipv) Unknown Completed [facility] Dtap/ipv Unknown Completed [facility] Influenza Virus Vaccine Quad .5 mL IM 6+ MO (FLUZONE/FLULAVAL/F LUARIX) Unknown Completed [facility] Flu Trivalent Unknown Completed [facility] Flu Trivalent Unknown Completed [facility] Influenza Virus Vaccine - Whole Unknown Completed [facility] HEPATITIS A Unknown Completed [facility] HEPATITIS A Unknown Completed [facility] Hep B, Adol or Pedi Dosage Unknown Completed [facility] Hep B, Adol or Pedi Dosage Unknown Completed [facility] HIB 4 Dose Schedule Unknown Completed [facility] HIB 4 Dose Schedule Unknown Completed [facility] HIB 4 Dose Schedule Unknown Completed [facility] HIB 4 Dose Schedule Unknown Completed [facility] MMR Unknown Completed [facility] MMR Unknown Completed [facility] Pneumococcal 7 Conjugate, PCV7 (Prevnar7) Unknown Completed [facility] Pneumococcal 7 Conjugate, PCV7 (Prevnar7) Unknown Completed [facility] Pneumococcal 7 Conjugate, PCV7 (Prevnar7) Unknown Completed [facility] Pneumococcal 7 Conjugate, PCV7 (Prevnar7) Unknown Completed [facility] IPV Unknown Completed [facility] IPV Unknown Completed [facility] Varicella (varivax)(chicken pox) Unknown Completed [facility] Varicella (varivax)(chicken pox) Unknown Completed [facility] Influenza Virus Vaccine Quad IM, Preserv and ABX Free 6 MO-64 YRS (FLUCELVAX) Unknown Completed [facility] Influenza Virus Vaccine Quad IM, Preserv and ABX Free 6 MO-64 YRS (FLUCELVAX) Unknown Completed [facility] SARS-COV-2 COVID-19 PFIZER VACCINE Unknown Completed [facility] SARS-COV-2 COVID-19 PFIZER VACCINE Unknown Completed [facility] SARS-COV-2 COVID-19 PFIZER VACCINE Unknown Completed [facility] DTaP, Unspecified Formulation Unknown Completed [facility] DTaP, Unspecified Formulation Unknown [facility] [facility] D[facility]P, Unspecified Formulation Unknown Completed [facility] Pediarix (dtap/hep B/ipv) Unknown Completed [facility] Dtap/ipv Unknown Completed [facility] Influenza Virus Vaccine Quad .5 mL IM 6+ MO (FLUZONE/FLULAVAL/F LUARIX) Unknown Completed [facility] Flu Trivalent Unknown Completed [facility] Flu Trivalent Unknown Completed [facility] Influenza Virus Vaccine - Whole Unknown Completed [facility] HEPATITIS A Unknown Completed [facility] HEPATITIS A Unknown Completed [facility] Hep B, Adol or Pedi Dosage Unknown Completed [facility] Hep B, Adol or Pedi Dosage Unknown Completed [facility] HIB 4 Dose Schedule Unknown Completed [facility] HIB 4 Dose Schedule Unknown Completed [facility] HIB 4 Dose Schedule Unknown Completed [facility] HIB 4 Dose Schedule Unknown Completed [facility] MMR Unknown Completed [facility] MMR Unknown Completed [facility] Pneumococcal 7 Conjugate, PCV7 (Prevnar7) Unknown Completed [facility] Pneumococcal 7 Conjugate, PCV7 (Prevnar7) Unknown Completed [facility] Pneumococcal 7 Conjugate, PCV7 (Prevnar7) Unknown Completed [facility] Pneumococcal 7 Conjugate, PCV7 (Prevnar7) Unknown Completed [facility] IPV Unknown Completed [facility] IPV Unknown Completed [facility] Varicella (varivax)(chicken pox) Unknown Completed [facility] Varicella (varivax)(chicken pox) Unknown Completed [facility] Influenza Virus Vaccine Quad IM, Preserv and ABX Free 6 MO-64 YRS (FLUCELVAX) Unknown Completed [facility] Influenza Virus Vaccine Quad IM, Preserv and ABX Free 6 MO-64 YRS (FLUCELVAX) Unknown Completed [facility] SARS-COV-2 COVID-19 PFIZER VACCINE Unknown Completed [facility] SARS-COV-2 COVID-19 PFIZER VACCINE Unknown Completed [facility] SARS-COV-2 COVID-19 PFIZER VACCINE Unknown Completed [facility] DTaP, Unspecified Formulation Unknown Completed [facility] DTaP, Unspecified Formulation Unknown Completed [facility] DTaP, Unspecified Formulation Unknown Completed [facility] Pediarix (dtap/hep B/ipv) Unknown Completed [facility] Dtap/ipv Unknown Completed [facility] Influenza Virus Vaccine Quad .5 mL IM 6+ MO (FLUZONE/FLULAVAL/F LUARIX) Unknown Completed [facility] Flu Trivalent Unknown Completed [facility] Flu Trivalent Unknown Completed [facility] Influenza Virus Vaccine - Whole Unknown Completed [facility] HEPATITIS A Unknown Completed [facility] HEPATITIS A Unknown Completed [facility] Hep B, Adol or Pedi Dosage Unknown Completed [facility] Hep B, Adol or Pedi Dosage Unknown Completed [facility] HIB 4 Dose Schedule Unknown Completed [facility] HIB 4 Dose Schedule Unknown Completed [facility] HIB 4 Dose Schedule Unknown Completed [facility] HIB 4 Dose Schedule Unknown Completed [facility] MMR Unknown Completed [facility] MMR Unknown Completed [facility] Pneumococcal 7 Conjugate, PCV7 (Prevnar7) Unknown Completed [facility] Pneumococcal 7 Conjugate, PCV7 (Prevnar7) Unknown Completed [facility] Pneumococcal 7 Conjugate, PCV7 (Prevnar7) Unknown Completed [facility] Pneumococcal 7 Conjugate, PCV7 (Prevnar7) Unknown Completed [facility] IPV Unknown Completed [facility] IPV Unknown Completed [facility] Varicella (varivax)(chicken pox) Unknown Completed [facility] Varicella (varivax)(chicken pox) Unknown Completed [facility] Influenza Virus Vaccine Quad IM, Preserv and ABX Free 6 MO-64 YRS (FLUCELVAX) Unknown Completed [facility] Influenza Virus Vaccine Quad IM, Preserv and ABX Free 6 MO-64 YRS (FLUCELVAX) Unknown Completed [facility] SARS-COV-2 COVID-19 PFIZER VACCINE Unknown Completed [facility] SARS-COV-2 COVID-19 PFIZER VACCINE Unknown Completed [facility] SARS-COV-2 COVID-19 PFIZER VACCINE Unknown Completed [facility] DTaP, Unspecified Formulation Unknown Completed [facility] DTaP, Unspecified Formulation Unknown Completed [facility] DTaP, Unspecified Formulation Unknown Completed [facility] Pediarix (dtap/hep B/ipv) Unknown Completed [facility] Dtap/ipv Unknown Completed [facility] Influenza Virus Vaccine Quad .5 mL IM 6+ MO (FLUZONE/FLULAVAL/F LUARIX) Unknown Completed [facility] Flu Trivalent Unknown Completed [facility] Flu Trivalent Unknown Completed [facility] Influenza Virus Vaccine - Whole Unknown Completed [facility] HEPATITIS A Unknown Completed [facility] HEPATITIS A Unknown Completed [facility] Hep B, Adol or Pedi Dosage Unknown Completed [facility] Hep B, Adol or Pedi Dosage Unknown Completed [facility] HIB 4 Dose Schedule Unknown Completed [facility] HIB 4 Dose Schedule Unknown Completed [facility] HIB 4 Dose Schedule Unknown Completed [facility] HIB 4 Dose Schedule Unknown Completed [facility] MMR Unknown Completed [facility] MMR Unknown Completed [facility] Pneumococcal 7 Conjugate, PCV7 (Prevnar7) Unknown Completed [facility] Pneumococcal 7 Conjugate, PCV7 (Prevnar7) Unknown Completed [facility] Pneumococcal 7 Conjugate, PCV7 (Prevnar7) Unknown Completed [facility] Pneumococcal 7 Conjugate, PCV7 (Prevnar7) Unknown Completed [facility] IPV Unknown Completed [facility] IPV Unknown Completed [facility] Varicella (varivax)(chicken pox) Unknown Completed [facility] Varicella (varivax)(chicken pox) Unknown Completed [facility] Influenza Virus Vaccine Quad IM, Preserv and ABX Free 6 MO-64 YRS (FLUCELVAX) Unknown Completed [facility] Influenza Virus Vaccine Quad IM, Preserv and ABX Free 6 MO-64 YRS (FLUCELVAX) Unknown Completed [facility] SARS-COV-2 COVID-19 PFIZER VACCINE Unknown Completed [facility] SARS-COV-2 COVID-19 PFIZER VACCINE Unknown Completed [facility] SARS-COV-2 COVID-19 PFIZER VACCINE Unknown Completed [facility] DTaP, Unspecified Formulation Unknown Completed [facility] DTaP, Unspecified Formulation Unknown Completed [facility] DTaP, Unspecified Formulation Unknown Completed [facility] Pediarix (dtap/hep B/ipv) Unknown Completed [facility] Dtap/ipv Unknown Completed [facility] Influenza Virus Vaccine Quad .5 mL IM 6+ MO (FLUZONE/FLULAVAL/F LUARIX) Unknown Completed [facility] Flu Trivalent Unknown Completed [facility] Flu Trivalent Unknown Completed [facility] Influenza Virus Vaccine - Whole Unknown Completed [facility] HEPATITIS A Unknown Completed [facility] HEPATITIS A Unknown Completed [facility] Hep B, Adol or Pedi Dosage Unknown Completed [facility] Hep B, Adol or Pedi Dosage Unknown Completed [facility] HIB 4 Dose Schedule Unknown Completed [facility] HIB 4 Dose Schedule Unknown Completed [facility] HIB 4 Dose Schedule Unknown Completed [facility] HIB 4 Dose Schedule Unknown Completed [facility] MMR Unknown Completed [facility] MMR Unknown Completed [facility] Pneumococcal 7 Conjugate, PCV7 (Prevnar7) Unknown Completed [facility] Pneumococcal 7 Conjugate, PCV7 (Prevnar7) Unknown Completed [facility] Pneumococcal 7 Conjugate, PCV7 (Prevnar7) Unknown Completed [facility] Pneumococcal 7 Conjugate, PCV7 (Prevnar7) Unknown Completed [facility] IPV Unknown Completed [facility] IPV Unknown Completed [facility] Varicella (varivax)(chicken pox) Unknown Completed [facility] Varicella (varivax)(chicken pox) Unknown Completed [facility] Influenza Virus Vaccine Quad IM, Preserv and ABX Free 6 MO-64 YRS (FLUCELVAX) Unknown Completed [facility] Influenza Virus Vaccine Quad IM, Preserv and ABX Free 6 MO-64 YRS (FLUCELVAX) Unknown Completed [facility] SARS-COV-2 COVID-19 PFIZER VACCINE Unknown Completed [facility] SARS-COV-2 COVID-19 PFIZER VACCINE Unknown Completed [facility] SARS-COV-2 COVID-19 PFIZER VACCINE Unknown Completed [facility] DTaP, Unspecified Formulation Unknown Completed [facility] DTaP, Unspecified Formulation Unknown Completed [facility] DTaP, Unspecified Formulation Unknown Completed [facility] Pediarix (dtap/hep B/ipv) Unknown Completed [facility] Dtap/ipv Unknown Completed [facility] Influenza Virus Vaccine Quad .5 mL IM 6+ MO (FLUZONE/FLULAVAL/F LUARIX) Unknown Completed [facility] Flu Trivalent Unknown Completed [facility] Flu Trivalent Unknown Completed [facility] Influenza Virus Vaccine - Whole Unknown Completed [facility] HEPATITIS A Unknown Completed [facility] HEPATITIS A Unknown Completed [facility] Hep B, Adol or Pedi Dosage Unknown Completed [facility] Hep B, Adol or Pedi Dosage Unknown Completed [facility] HIB 4 Dose Schedule Unknown Completed [facility] HIB 4 Dose Schedule Unknown Completed [facility] HIB 4 Dose Schedule Unknown Completed [facility] HIB 4 Dose Schedule Unknown Completed [facility] MMR Unknown Completed [facility] MMR Unknown Completed [facility] Pneumococcal 7 Conjugate, PCV7 (Prevnar7) Unknown Completed [facility] Pneumococcal 7 Conjugate, PCV7 (Prevnar7) Unknown Completed [facility] Pneumococcal 7 Conjugate, PCV7 (Prevnar7) Unknown Completed [facility] Pneumococcal 7 Conjugate, PCV7 (Prevnar7) Unknown Completed [facility] IPV Unknown Completed [facility] IPV Unknown Completed [facility] Varicella (varivax)(chicken pox) Unknown Completed [facility] Varicella (varivax)(chicken pox) Unknown Completed [facility] Influenza Virus Vaccine Quad IM, Preserv and ABX Free 6 MO-64 YRS (FLUCELVAX) Unknown Completed [facility] Influenza Virus Vaccine Quad IM, Preserv and ABX Free 6 MO-64 YRS (FLUCELVAX) Unknown Completed [facility] SARS-COV-2 COVID-19 PFIZER VACCINE Unknown Completed [facility] SARS-COV-2 COVID-19 PFIZER VACCINE Unknown Completed [facility] SARS-COV-2 COVID-19 PFIZER VACCINE Unknown Completed [facility] DTaP, Unspecified Formulation Unknown Completed [facility] DTaP, Unspecified Formulation Unknown Completed [facility] DTaP, Unspecified Formulation Unknown Completed [facility] Pediarix (dtap/hep B/ipv) Unknown Completed [facility] Dtap/ipv Unknown Completed [facility] Influenza Virus Vaccine Quad .5 mL IM 6+ MO (FLUZONE/FLULAVAL/F LUARIX) Unknown Completed [facility] Flu Trivalent Unknown Completed [facility] Flu Trivalent Unknown Completed [facility] Influenza Virus Vaccine - Whole Unknown Completed [facility] HEPATITIS A Unknown Completed [facility] HEPATITIS A Unknown Completed [facility] Hep B, Adol or Pedi Dosage Unknown Completed [facility] Hep B, Adol or Pedi Dosage Unknown Completed [facility] HIB 4 Dose Schedule Unknown Completed [facility] HIB 4 Dose Schedule Unknown Completed [facility] HIB 4 Dose Schedule Unknown Completed [facility] HIB 4 Dose Schedule Unknown Completed [facility] MMR Unknown Completed [facility] MMR Unknown Completed [facility] Pneumococcal 7 Conjugate, PCV7 (Prevnar7) Unknown Completed [facility] Pneumococcal 7 Conjugate, PCV7 (Prevnar7) Unknown Completed [facility] Pneumococcal 7 Conjugate, PCV7 (Prevnar7) Unknown Completed [facility] Pneumococcal 7 Conjugate, PCV7 (Prevnar7) Unknown Completed [facility] IPV Unknown Completed [facility] IPV Unknown Completed [facility] Varicella (varivax)(chicken pox) Unknown Completed [facility] Varicella (varivax)(chicken pox) Unknown Completed [facility] Influenza Virus Vaccine Quad IM, Preserv and ABX Free 6 MO-64 YRS (FLUCELVAX) Unknown Completed [facility] Influenza Virus Vaccine Quad IM, Preserv and ABX Free 6 MO-64 YRS (FLUCELVAX) Unknown Completed [facility] SARS-COV-2 COVID-19 PFIZER VACCINE Unknown Completed [facility] SARS-COV-2 COVID-19 PFIZER VACCINE Unknown Completed [facility] SARS-COV-2 COVID-19 PFIZER VACCINE Unknown Completed [facility] DTaP, Unspecified Formulation Unknown Completed [facility] DTaP, Unspecified Formulation Unknown Completed [facility] DTaP, Unspecified Formulation Unknown Completed [facility] Pediarix (dtap/hep B/ipv) Unknown Completed [facility] Dtap/ipv Unknown Completed [facility] Influenza Virus Vaccine Quad .5 mL IM 6+ MO (FLUZONE/FLULAVAL/F LUARIX) Unknown Completed [facility] Flu Trivalent Unknown Completed [facility] Flu Trivalent Unknown Completed [facility] Influenza Virus Vaccine - Whole Unknown Completed [facility] HEPATITIS A Unknown Completed [facility] HEPATITIS A Unknown Completed [facility] Hep B, Adol or Pedi Dosage Unknown Completed [facility] Hep B, Adol or Pedi Dosage Unknown Completed [facility] HIB 4 Dose Schedule Unknown Completed [facility] HIB 4 Dose Schedule Unknown Completed [facility] HIB 4 Dose Schedule Unknown Completed [facility] HIB 4 Dose Schedule Unknown Completed [facility] MMR Unknown Completed [facility] MMR Unknown Completed [facility] Pneumococcal 7 Conjugate, PCV7 (Prevnar7) Unknown Completed [facility] Pneumococcal 7 Conjugate, PCV7 (Prevnar7) Unknown Completed [facility] Pneumococcal 7 Conjugate, PCV7 (Prevnar7) Unknown Completed [facility] Pneumococcal 7 Conjugate, PCV7 (Prevnar7) Unknown Completed [facility] IPV Unknown Completed [facility] IPV Unknown Completed [facility] Varicella (varivax)(chicken pox) Unknown Completed [facility] Varicella (varivax)(chicken pox) Unknown Completed [facility] Influenza Virus Vaccine Quad IM, Preserv and ABX Free 6 MO-64 YRS (FLUCELVAX) Unknown Completed [facility] Influenza Virus Vaccine Quad IM, Preserv and ABX Free 6 MO-64 YRS (FLUCELVAX) Unknown Completed [facility] SARS-COV-2 COVID-19 PFIZER VACCINE Unknown Completed [facility] SARS-COV-2 COVID-19 PFIZER VACCINE Unknown Completed [facility] SARS-COV-2 COVID-19 PFIZER VACCINE Unknown Completed [facility] DTaP, Unspecified Formulation Unknown Completed [facility] DTaP, Unspecified Formulation Unknown Completed [facility] DTaP, Unspecified Formulation Unknown Completed [facility] Pediarix (dtap/hep B/ipv) Unknown Completed [facility] Dtap/ipv Unknown Completed [facility] Influenza Virus Vaccine Quad .5 mL IM 6+ MO (FLUZONE/FLULAVAL/F LUARIX) Unknown Completed [facility] Flu Trivalent Unknown Completed [facility] Flu Trivalent Unknown Completed [facility] Influenza Virus Vaccine - Whole Unknown Completed [facility] HEPATITIS A Unknown Completed [facility] HEPATITIS A Unknown Completed [facility] Hep B, Adol or Pedi Dosage Unknown Completed [facility] Hep B, Adol or Pedi Dosage Unknown Completed [facility] HIB 4 Dose Schedule Unknown Completed [facility] HIB 4 Dose Schedule Unknown Completed [facility] HIB 4 Dose Schedule Unknown Completed [facility] HIB 4 Dose Schedule Unknown Completed [facility] MMR Unknown Completed [facility] MMR Unknown Completed [facility] Pneumococcal 7 Conjugate, PCV7 (Prevnar7) Unknown Completed [facility] Pneumococcal 7 Conjugate, PCV7 (Prevnar7) Unknown Completed [facility] Pneumococcal 7 Conjugate, PCV7 (Prevnar7) Unknown Completed [facility] Pneumococcal 7 Conjugate, PCV7 (Prevnar7) Unknown Completed [facility] IPV Unknown Completed [facility] IPV Unknown Completed [facility] Varicella (varivax)(chicken pox) Unknown Completed [facility] Varicella (varivax)(chicken pox) Unknown Completed [facility] Influenza Virus Vaccine Quad IM, Preserv and ABX Free 6 MO-64 YRS (FLUCELVAX) Unknown Completed [facility] Influenza Virus Vaccine Quad IM, Preserv and ABX Free 6 MO-64 YRS (FLUCELVAX) Unknown Completed [facility] SARS-COV-2 COVID-19 PFIZER VACCINE Unknown Completed [facility] SARS-COV-2 COVID-19 PFIZER VACCINE Unknown Completed [facility] SARS-COV-2 COVID-19 PFIZER VACCINE Unknown Completed [facility] DTaP, Unspecified Formulation Unknown Completed [facility] DTaP, Unspecified Formulation Unknown Completed [facility] DTaP, Unspecified Formulation Unknown Completed [facility] Pediarix (dtap/hep B/ipv) Unknown Completed [facility] Dtap/ipv Unknown Completed [facility] Influenza Virus Vaccine Quad .5 mL IM 6+ MO (FLUZONE/FLULAVAL/F LUARIX) Unknown Completed [facility] Flu Trivalent Unknown Completed [facility] Flu Trivalent Unknown Completed [facility] Influenza Virus Vaccine - Whole Unknown Completed [facility] HEPATITIS A Unknown Completed [facility] HEPATITIS A Unknown Completed [facility] Hep B, Adol or Pedi Dosage Unknown Completed [facility] Hep B, Adol or Pedi Dosage Unknown Completed [facility] HIB 4 Dose Schedule Unknown Completed [facility] HIB 4 Dose Schedule Unknown Completed [facility] HIB 4 Dose Schedule Unknown Completed [facility] HIB 4 Dose Schedule Unknown Completed [facility] MMR Unknown Completed [facility] MMR Unknown Completed [facility] Pneumococcal 7 Conjugate, PCV7 (Prevnar7) Unknown Completed [facility] Pneumococcal 7 Conjugate, PCV7 (Prevnar7) Unknown Completed [facility] Pneumococcal 7 Conjugate, PCV7 (Prevnar7) Unknown Completed [facility] Pneumococcal 7 Conjugate, PCV7 (Prevnar7) Unknown Completed [facility] IPV Unknown Completed [facility] IPV Unknown Completed [facility] Varicella (varivax)(chicken pox) Unknown Completed [facility] Varicella (varivax)(chicken pox) Unknown Completed [facility] Influenza Virus Vaccine Quad IM, Preserv and ABX Free 6 MO-64 YRS (FLUCELVAX) Unknown Completed [facility] Influenza Virus Vaccine Quad IM, Preserv and ABX Free 6 MO-64 YRS (FLUCELVAX) Unknown Completed [facility] SARS-COV-2 COVID-19 PFIZER VACCINE Unknown Completed [facility] SARS-COV-2 COVID-19 PFIZER VACCINE Unknown Completed [facility] SARS-COV-2 COVID-19 PFIZER VACCINE Unknown Completed [facility] DTaP, Unspecified Formulation Unknown Completed [facility] DTaP, Unspecified Formulation Unknown Completed [facility] DTaP, Unspecified Formulation Unknown Completed [facility] Pediarix (dtap/hep B/ipv) Unknown Completed [facility] Dtap/ipv Unknown Completed [facility] Influenza Virus Vaccine Quad .5 mL IM 6+ MO (FLUZONE/FLULAVAL/F LUARIX) Unknown Completed [facility] Flu Trivalent Unknown Completed [facility] Flu Trivalent Unknown Completed [facility] Influenza Virus Vaccine - Whole Unknown Completed [facility] HEPATITIS A Unknown Completed [facility] HEPATITIS A Unknown Completed [facility] Hep B, Adol or Pedi Dosage Unknown Completed [facility] Hep B, Adol or Pedi Dosage Unknown Completed [facility] HIB 4 Dose Schedule Unknown Completed [facility] HIB 4 Dose Schedule Unknown Completed [facility] HIB 4 Dose Schedule Unknown Completed [facility] HIB 4 Dose Schedule Unknown Completed [facility] MMR Unknown Completed [facility] MMR Unknown Completed [facility] Pneumococcal 7 Conjugate, PCV7 (Prevnar7) Unknown Completed [facility] Pneumococcal 7 Conjugate, PCV7 (Prevnar7) Unknown Completed [facility] Pneumococcal 7 Conjugate, PCV7 (Prevnar7) Unknown Completed [facility] Pneumococcal 7 Conjugate, PCV7 (Prevnar7) Unknown Completed [facility] IPV Unknown Completed [facility] IPV Unknown Completed [facility] Varicella (varivax)(chicken pox) Unknown Completed [facility] Varicella (varivax)(chicken pox) Unknown Completed [facility] Influenza Virus Vaccine Quad IM, Preserv and ABX Free 6 MO-64 YRS (FLUCELVAX) Unknown Completed [facility] Influenza Virus Vaccine Quad IM, Preserv and ABX Free 6 MO-64 YRS (FLUCELVAX) Unknown Completed [facility] SARS-COV-2 COVID-19 PFIZER VACCINE Unknown Completed [facility] SARS-COV-2 COVID-19 PFIZER VACCINE Unknown Completed [facility] SARS-COV-2 COVID-19 PFIZER VACCINE Unknown Completed [facility] DTaP, Unspecified Formulation Unknown Completed [facility] DTaP, Unspecified Formulation Unknown Completed [facility] DTaP, Unspecified Formulation Unknown Completed [facility] Pediarix (dtap/hep B/ipv) Unknown Completed [facility] Dtap/ipv Unknown Completed [facility] Influenza Virus Vaccine Quad .5 mL IM 6+ MO (FLUZONE/FLULAVAL/F LUARIX) Unknown Completed [facility] Flu Trivalent Unknown Completed [facility] Flu Trivalent Unknown Completed [facility] Influenza Virus Vaccine - Whole Unknown Completed [facility] HEPATITIS A Unknown Completed [facility] HEPATITIS A Unknown Completed [facility] Hep B, Adol or Pedi Dosage Unknown Completed [facility] Hep B, Adol or Pedi Dosage Unknown Completed [facility] HIB 4 Dose Schedule Unknown Completed [facility] HIB 4 Dose Schedule Unknown Completed [facility] HIB 4 Dose Schedule Unknown Completed [facility] HIB 4 Dose Schedule Unknown Completed [facility] MMR Unknown Completed [facility] MMR Unknown Completed [facility] Pneumococcal 7 Conjugate, PCV7 (Prevnar7) Unknown Completed [facility] Pneumococcal 7 Conjugate, PCV7 (Prevnar7) Unknown Completed [facility] Pneumococcal 7 Conjugate, PCV7 (Prevnar7) Unknown Completed [facility] Pneumococcal 7 Conjugate, PCV7 (Prevnar7) Unknown Completed [facility] IPV Unknown Completed [facility] IPV Unknown Completed [facility] Varicella (varivax)(chicken pox) Unknown Completed [facility] Varicella (varivax)(chicken pox) Unknown Completed [facility] Influenza Virus Vaccine Quad IM, Preserv and ABX Free 6 MO-64 YRS (FLUCELVAX) Unknown Completed [facility] Influenza Virus Vaccine Quad IM, Preserv and ABX Free 6 MO-64 YRS (FLUCELVAX) Unknown Completed [facility] SARS-COV-2 COVID-19 PFIZER VACCINE Unknown Completed [facility] SARS-COV-2 COVID-19 PFIZER VACCINE Unknown Completed [facility] SARS-COV-2 COVID-19 PFIZER VACCINE Unknown Completed [facility] DTaP, Unspecified Formulation Unknown Completed [facility] DTaP, Unspecified Formulation Unknown Completed [facility] DTaP, Unspecified Formulation Unknown Completed [facility] Pediarix (dtap/hep B/ipv) Unknown Completed [facility] Dtap/ipv Unknown Completed [facility] Influenza Virus Vaccine Quad .5 mL IM 6+ MO (FLUZONE/FLULAVAL/F LUARIX) Unknown Completed [facility] Flu Trivalent Unknown Completed [facility] Flu Trivalent Unknown Completed [facility] Influenza Virus Vaccine - Whole Unknown Completed [facility] HEPATITIS A Unknown Completed [facility] HEPATITIS A Unknown Completed [facility] Hep B, Adol or Pedi Dosage Unknown Completed [facility] Hep B, Adol or Pedi Dosage Unknown Completed [facility] HIB 4 Dose Schedule Unknown Completed [facility] HIB 4 Dose Schedule Unknown Completed [facility] HIB 4 Dose Schedule Unknown Completed [facility] HIB 4 Dose Schedule Unknown Completed [facility] MMR Unknown Completed [facility] MMR Unknown Completed [facility] Pneumococcal 7 Conjugate, PCV7 (Prevnar7) Unknown Completed [facility] Pneumococcal 7 Conjugate, PCV7 (Prevnar7) Unknown Completed [facility] Pneumococcal 7 Conjugate, PCV7 (Prevnar7) Unknown Completed [facility] Pneumococcal 7 Conjugate, PCV7 (Prevnar7) Unknown Completed [facility] IPV Unknown Completed [facility] IPV Unknown Completed [facility] Varicella (varivax)(chicken pox) Unknown Completed [facility] Varicella (varivax)(chicken pox) Unknown Completed [facility] Influenza Virus Vaccine Quad IM, Preserv and ABX Free 6 MO-64 YRS (FLUCELVAX) Unknown Completed [facility] Influenza Virus Vaccine Quad IM, Preserv and ABX Free 6 MO-64 YRS (FLUCELVAX) Unknown Completed [facility] SARS-COV-2 COVID-19 PFIZER VACCINE Unknown Completed [facility] SARS-COV-2 COVID-19 PFIZER VACCINE Unknown Completed [facility] SARS-COV-2 COVID-19 PFIZER VACCINE Unknown Completed [facility] DTaP, Unspecified Formulation Unknown Completed [facility] DTaP, Unspecified Formulation Unknown Completed [facility] DTaP, Unspecified Formulation Unknown Completed [facility] Pediarix (dtap/hep B/ipv) Unknown Completed [facility] Dtap/ipv Unknown Completed [facility] Influenza Virus Vaccine Quad .5 mL IM 6+ MO (FLUZONE/FLULAVAL/F LUARIX) Unknown Completed [facility] Flu Trivalent Unknown Completed [facility] Flu Trivalent Unknown Completed [facility] Influenza Virus Vaccine - Whole Unknown Completed [facility] HEPATITIS A Unknown Completed [facility] HEPATITIS A Unknown Completed [facility] Hep B, Adol or Pedi Dosage Unknown Completed [facility] Hep B, Adol or Pedi Dosage Unknown Completed [facility] HIB 4 Dose Schedule Unknown Completed [facility] HIB 4 Dose Schedule Unknown Completed [facility] HIB 4 Dose Schedule Unknown Completed [facility] HIB 4 Dose Schedule Unknown Completed [facility] MMR Unknown Completed [facility] MMR Unknown Completed [facility] Pneumococcal 7 Conjugate, PCV7 (Prevnar7) Unknown Completed [facility] Pneumococcal 7 Conjugate, PCV7 (Prevnar7) Unknown Completed [facility] Pneumococcal 7 Conjugate, PCV7 (Prevnar7) Unknown Completed [facility] Pneumococcal 7 Conjugate, PCV7 (Prevnar7) Unknown Completed [facility] IPV Unknown Completed [facility] IPV Unknown Completed [facility] Varicella (varivax)(chicken pox) Unknown Completed [facility] Varicella (varivax)(chicken pox) Unknown Completed [facility] Influenza Virus Vaccine Quad IM, Preserv and ABX Free 6 MO-64 YRS (FLUCELVAX) Unknown Completed [facility] Influenza Virus Vaccine Quad IM, Preserv and ABX Free 6 MO-64 YRS (FLUCELVAX) Unknown Completed [facility] SARS-COV-2 COVID-19 PFIZER VACCINE Unknown Completed [facility] SARS-COV-2 COVID-19 PFIZER VACCINE Unknown Completed [facility] SARS-COV-2 COVID-19 PFIZER VACCINE Unknown Completed [facility] DTaP, Unspecified Formulation Unknown Completed [facility] DTaP, Unspecified Formulation Unknown Completed [facility] DTaP, Unspecified Formulation Unknown Completed [facility] Pediarix (dtap/hep B/ipv) Unknown Completed [facility] Dtap/ipv Unknown Completed [facility] Influenza Virus Vaccine Quad .5 mL IM 6+ MO (FLUZONE/FLULAVAL/F LUARIX) Unknown Completed [facility] Flu Trivalent Unknown Completed [facility] Flu Trivalent Unknown Completed [facility] Influenza Virus Vaccine - Whole Unknown Completed [facility] HEPATITIS A Unknown Completed [facility] HEPATITIS A Unknown Completed [facility] Hep B, Adol or Pedi Dosage Unknown Completed [facility] Hep B, Adol or Pedi Dosage Unknown Completed [facility] HIB 4 Dose Schedule Unknown Completed [facility] HIB 4 Dose Schedule Unknown Completed [facility] HIB 4 Dose Schedule Unknown Completed [facility] HIB 4 Dose Schedule Unknown Completed [facility] MMR Unknown Completed [facility] MMR Unknown Completed [facility] Pneumococcal 7 Conjugate, PCV7 (Prevnar7) Unknown Completed [facility] Pneumococcal 7 Conjugate, PCV7 (Prevnar7) Unknown Completed [facility] Pneumococcal 7 Conjugate, PCV7 (Prevnar7) Unknown Completed [facility] Pneumococcal 7 Conjugate, PCV7 (Prevnar7) Unknown Completed [facility] IPV Unknown Completed [facility] IPV Unknown Completed [facility] Varicella (varivax)(chicken pox) Unknown Completed [facility] Varicella (varivax)(chicken pox) Unknown Completed [facility] Influenza Virus Vaccine Quad IM, Preserv and ABX Free 6 MO-64 YRS (FLUCELVAX) Unknown Completed [facility] Influenza Virus Vaccine Quad IM, Preserv and ABX Free 6 MO-64 YRS (FLUCELVAX) Unknown Completed [facility] SARS-COV-2 COVID-19 PFIZER VACCINE Unknown Completed [facility] SARS-COV-2 COVID-19 PFIZER VACCINE Unknown Completed [facility] SARS-COV-2 COVID-19 PFIZER VACCINE Unknown Completed [facility] DTaP, Unspecified Formulation Unknown Completed [facility] DTaP, Unspecified Formulation Unknown Completed [facility] DTaP, Unspecified Formulation Unknown Completed [facility] Pediarix (dtap/hep B/ipv) Unknown Completed [facility] Dtap/ipv Unknown Completed [facility] Influenza Virus Vaccine Quad .5 mL IM 6+ MO (FLUZONE/FLULAVAL/F LUARIX) Unknown Completed [facility] Flu Trivalent Unknown Completed [facility] Flu Trivalent Unknown Completed [facility] Influenza Virus Vaccine - Whole Unknown Completed [facility] HEPATITIS A Unknown Completed [facility] HEPATITIS A Unknown Completed [facility] Hep B, Adol or Pedi Dosage Unknown Completed [facility] Hep B, Adol or Pedi Dosage Unknown Completed [facility] HIB 4 Dose Schedule Unknown Completed [facility] HIB 4 Dose Schedule Unknown Completed [facility] HIB 4 Dose Schedule Unknown Completed [facility] HIB 4 Dose Schedule Unknown Completed [facility] MMR Unknown Completed [facility] MMR Unknown Completed [facility] Pneumococcal 7 Conjugate, PCV7 (Prevnar7) Unknown Completed [facility] Pneumococcal 7 Conjugate, PCV7 (Prevnar7) Unknown Completed [facility] Pneumococcal 7 Conjugate, PCV7 (Prevnar7) Unknown Completed [facility] Pneumococcal 7 Conjugate, PCV7 (Prevnar7) Unknown Completed [facility] IPV Unknown Completed [facility] IPV Unknown Completed [facility] Varicella (varivax)(chicken pox) Unknown Completed [facility] Varicella (varivax)(chicken pox) Unknown Completed [facility] Influenza Virus Vaccine Quad IM, Preserv and ABX Free 6 MO-64 YRS (FLUCELVAX) Unknown Completed [facility] Influenza Virus Vaccine Quad IM, Preserv and ABX Free 6 MO-64 YRS (FLUCELVAX) Unknown Completed [facility] SARS-COV-2 COVID-19 PFIZER VACCINE Unknown Completed [facility] SARS-COV-2 COVID-19 PFIZER VACCINE Unknown Completed [facility] SARS-COV-2 COVID-19 PFIZER VACCINE Unknown Completed [facility] DTaP, Unspecified Formulation Unknown Completed [facility] DTaP, Unspecified Formulation Unknown Completed [facility] DTaP, Unspecified Formulation Unknown Completed [facility] Pediarix (dtap/hep B/ipv) Unknown Completed [facility] Dtap/ipv Unknown Completed [facility] Influenza Virus Vaccine Quad .5 mL IM 6+ MO (FLUZONE/FLULAVAL/F LUARIX) Unknown Completed [facility] Flu Trivalent Unknown Completed [facility] Flu Trivalent Unknown Completed [facility] Influenza Virus Vaccine - Whole Unknown Completed [facility] HEPATITIS A Unknown Completed [facility] HEPATITIS A Unknown Completed [facility] Hep B, Adol or Pedi Dosage Unknown Completed [facility] Hep B, Adol or Pedi Dosage Unknown Completed [facility] HIB 4 Dose Schedule Unknown Completed [facility] HIB 4 Dose Schedule Unknown Completed [facility] HIB 4 Dose Schedule Unknown Completed [facility] HIB 4 Dose Schedule Unknown Completed [facility] MMR Unknown Completed [facility] MMR Unknown Completed [facility] Pneumococcal 7 Conjugate, PCV7 (Prevnar7) Unknown Completed [facility] Pneumococcal 7 Conjugate, PCV7 (Prevnar7) Unknown Completed [facility] Pneumococcal 7 Conjugate, PCV7 (Prevnar7) Unknown Completed [facility] Pneumococcal 7 Conjugate, PCV7 (Prevnar7) Unknown Completed [facility] IPV Unknown Completed [facility] IPV Unknown Completed [facility] Varicella (varivax)(chicken pox) Unknown Completed [facility] Varicella (varivax)(chicken pox) Unknown Completed [facility] Influenza Virus Vaccine Quad IM, Preserv and ABX Free 6 MO-64 YRS (FLUCELVAX) Unknown Completed [facility] Influenza Virus Vaccine Quad IM, Preserv and ABX Free 6 MO-64 YRS (FLUCELVAX) Unknown Completed [facility] SARS-COV-2 COVID-19 PFIZER VACCINE Unknown Completed [facility] SARS-COV-2 COVID-19 PFIZER VACCINE Unknown Completed [facility] SARS-COV-2 COVID-19 PFIZER VACCINE Unknown Completed [facility] DTaP, Unspecified Formulation Unknown Completed [facility] DTaP, Unspecified Formulation Unknown Completed [facility] DTaP, Unspecified Formulation Unknown Completed [facility] Pediarix (dtap/hep B/ipv) Unknown Completed [facility] Dtap/ipv Unknown Completed [facility] Influenza Virus Vaccine Quad .5 mL IM 6+ MO (FLUZONE/FLULAVAL/F LUARIX) Unknown Completed [facility] Flu Trivalent Unknown Completed [facility] Flu Trivalent Unknown Completed [facility] Influenza Virus Vaccine - Whole Unknown Completed [facility] HEPATITIS A Unknown Completed [facility] HEPATITIS A Unknown Completed [facility] Hep B, Adol or Pedi Dosage Unknown Completed [facility] Hep B, Adol or Pedi Dosage Unknown Completed [facility] HIB 4 Dose Schedule Unknown Completed [facility] HIB 4 Dose Schedule Unknown Completed [facility] HIB 4 Dose Schedule Unknown Completed [facility] HIB 4 Dose Schedule Unknown Completed [facility] MMR Unknown Completed [facility] MMR Unknown Completed [facility] Pneumococcal 7 Conjugate, PCV7 (Prevnar7) Unknown Completed [facility] Pneumococcal 7 Conjugate, PCV7 (Prevnar7) Unknown Completed [facility] Pneumococcal 7 Conjugate, PCV7 (Prevnar7) Unknown Completed [facility] Pneumococcal 7 Conjugate, PCV7 (Prevnar7) Unknown Completed [facility] IPV Unknown Completed [facility] IPV Unknown Completed [facility] Varicella (varivax)(chicken pox) Unknown Completed [facility] Varicella (varivax)(chicken pox) Unknown Completed [facility] Influenza Virus Vaccine Quad IM, Preserv and ABX Free 6 MO-64 YRS (FLUCELVAX) Unknown Completed [facility] Influenza Virus Vaccine Quad IM, Preserv and ABX Free 6 MO-64 YRS (FLUCELVAX) Unknown Completed [facility] SARS-COV-2 COVID-19 PFIZER VACCINE Unknown Completed [facility] SARS-COV-2 COVID-19 PFIZER VACCINE Unknown Completed [facility] SARS-COV-2 COVID-19 PFIZER VACCINE Unknown Completed [facility] DTaP, Unspecified Formulation Unknown Completed [facility] DTaP, Unspecified Formulation Unknown Completed [facility] DTaP, Unspecified Formulation Unknown Completed [facility] Pediarix (dtap/hep B/ipv) Unknown Completed [facility] Dtap/ipv Unknown Completed [facility] Influenza Virus Vaccine Quad .5 mL IM 6+ MO (FLUZONE/FLULAVAL/F LUARIX) Unknown Completed [facility] Flu Trivalent Unknown Completed [facility] Flu Trivalent Unknown Completed [facility] Influenza Virus Vaccine - Whole Unknown Completed [facility] HEPATITIS A Unknown Completed [facility] HEPATITIS A Unknown Completed [facility] Hep B, Adol or Pedi Dosage Unknown Completed [facility] Hep B, Adol or Pedi Dosage Unknown Completed [facility] HIB 4 Dose Schedule Unknown Completed [facility] HIB 4 Dose Schedule Unknown Completed [facility] HIB 4 Dose Schedule Unknown Completed [facility] HIB 4 Dose Schedule Unknown Completed [facility] MMR Unknown Completed [facility] MMR Unknown Completed [facility] Pneumococcal 7 Conjugate, PCV7 (Prevnar7) Unknown Completed [facility] Pneumococcal 7 Conjugate, PCV7 (Prevnar7) Unknown Completed [facility] Pneumococcal 7 Conjugate, PCV7 (Prevnar7) Unknown Completed [facility] Pneumococcal 7 Conjugate, PCV7 (Prevnar7) Unknown Completed [facility] IPV Unknown Completed [facility] IPV Unknown Completed [facility] Varicella (varivax)(chicken pox) Unknown Completed [facility] Varicella (varivax)(chicken pox) Unknown Completed [facility] Influenza Virus Vaccine Quad IM, Preserv and ABX Free 6 MO-64 YRS (FLUCELVAX) Unknown Completed [facility] Influenza Virus Vaccine Quad IM, Preserv and ABX Free 6 MO-64 YRS (FLUCELVAX) Unknown Completed [facility] SARS-COV-2 COVID-19 PFIZER VACCINE Unknown Completed [facility] SARS-COV-2 COVID-19 PFIZER VACCINE Unknown Completed [facility] SARS-COV-2 COVID-19 PFIZER VACCINE Unknown Completed [facility] DTaP, Unspecified Formulation Unknown Completed [facility] DTaP, Unspecified Formulation Unknown Completed [facility] DTaP, Unspecified Formulation Unknown Completed [facility] Pediarix (dtap/hep B/ipv) Unknown Completed [facility] Dtap/ipv Unknown Completed [facility] Influenza Virus Vaccine Quad .5 mL IM 6+ MO (FLUZONE/FLULAVAL/F LUARIX) Unknown Completed [facility] Flu Trivalent Unknown Completed [facility] Flu Trivalent Unknown Completed [facility] Influenza Virus Vaccine - Whole Unknown Completed [facility] HEPATITIS A Unknown Completed [facility] HEPATITIS A Unknown Completed [facility] Hep B, Adol or Pedi Dosage Unknown Completed [facility] Hep B, Adol or Pedi Dosage Unknown Completed [facility] HIB 4 Dose Schedule Unknown Completed [facility] HIB 4 Dose Schedule Unknown Completed [facility] HIB 4 Dose Schedule Unknown Completed [facility] HIB 4 Dose Schedule Unknown Completed [facility] MMR Unknown Completed [facility] MMR Unknown Completed [facility] Pneumococcal 7 Conjugate, PCV7 (Prevnar7) Unknown Completed [facility] Pneumococcal 7 Conjugate, PCV7 (Prevnar7) Unknown Completed [facility] Pneumococcal 7 Conjugate, PCV7 (Prevnar7) Unknown Completed [facility] Pneumococcal 7 Conjugate, PCV7 (Prevnar7) Unknown Completed [facility] IPV Unknown Completed [facility] IPV Unknown Completed [facility] Varicella (varivax)(chicken pox) Unknown Completed [facility] Varicella (varivax)(chicken pox) Unknown Completed [facility] Influenza Virus Vaccine Quad IM, Preserv and ABX Free 6 MO-64 YRS (FLUCELVAX) Unknown Completed [facility] Influenza Virus Vaccine Quad IM, Preserv and ABX Free 6 MO-64 YRS (FLUCELVAX) Unknown Completed [facility] SARS-COV-2 COVID-19 PFIZER VACCINE Unknown Completed [facility] SARS-COV-2 COVID-19 PFIZER VACCINE Unknown Completed [facility] SARS-COV-2 COVID-19 PFIZER VACCINE Unknown Completed [facility] DTaP, Unspecified Formulation Unknown Completed [facility] DTaP, Unspecified Formulation Unknown Completed [facility] DTaP, Unspecified Formulation Unknown Completed [facility] Pediarix (dtap/hep B/ipv) Unknown Completed [facility] Dtap/ipv Unknown Completed [facility] Influenza Virus Vaccine Quad .5 mL IM 6+ MO (FLUZONE/FLULAVAL/F LUARIX) Unknown Completed [facility] Flu Trivalent Unknown Completed [facility] Flu Trivalent Unknown Completed [facility] Influenza Virus Vaccine - Whole Unknown Completed [facility] HEPATITIS A Unknown Completed [facility] HEPATITIS A Unknown Completed [facility] Hep B, Adol or Pedi Dosage Unknown Completed [facility] Hep B, Adol or Pedi Dosage Unknown Completed [facility] HIB 4 Dose Schedule Unknown Completed [facility] HIB 4 Dose Schedule Unknown Completed [facility] HIB 4 Dose Schedule Unknown Completed [facility] HIB 4 Dose Schedule Unknown Completed [facility] MMR Unknown Completed [facility] MMR Unknown Completed [facility] Pneumococcal 7 Conjugate, PCV7 (Prevnar7) Unknown Completed [facility] Pneumococcal 7 Conjugate, PCV7 (Prevnar7) Unknown Completed [facility] Pneumococcal 7 Conjugate, PCV7 (Prevnar7) Unknown Completed [facility] Pneumococcal 7 Conjugate, PCV7 (Prevnar7) Unknown Completed [facility] IPV Unknown Completed [facility] IPV Unknown Completed [facility] Varicella (varivax)(chicken pox) Unknown Completed [facility] Varicella (varivax)(chicken pox) Unknown Completed [facility] Influenza Virus Vaccine Quad IM, Preserv and ABX Free 6 MO-64 YRS (FLUCELVAX) Unknown Completed [facility] Influenza Virus Vaccine Quad IM, Preserv and ABX Free 6 MO-64 YRS (FLUCELVAX) Unknown Completed [facility] SARS-COV-2 COVID-19 PFIZER VACCINE Unknown Completed [facility] SARS-COV-2 COVID-19 PFIZER VACCINE Unknown Completed [facility] SARS-COV-2 COVID-19 PFIZER VACCINE Unknown Completed [facility] DTaP, Unspecified Formulation Unknown Completed [facility] DTaP, Unspecified Formulation Unknown Completed [facility] DTaP, Unspecified Formulation Unknown Completed [facility] Pediarix (dtap/hep B/ipv) Unknown Completed [facility] Dtap/ipv Unknown Completed [facility] Influenza Virus Vaccine Quad .5 mL IM 6+ MO (FLUZONE/FLULAVAL/F LUARIX) Unknown Completed [facility] Flu Trivalent Unknown Completed [facility] Flu Trivalent Unknown Completed [facility] Influenza Virus Vaccine - Whole Unknown Completed [facility] HEPATITIS A Unknown Completed [facility] HEPATITIS A Unknown Completed [facility] Hep B, Adol or Pedi Dosage Unknown Completed [facility] Hep B, Adol or Pedi Dosage Unknown Completed [facility] HIB 4 Dose Schedule Unknown Completed [facility] HIB 4 Dose Schedule Unknown Completed [facility] HIB 4 Dose Schedule Unknown Completed [facility] HIB 4 Dose Schedule Unknown Completed [facility] MMR Unknown Completed [facility] MMR Unknown Completed [facility] Pneumococcal 7 Conjugate, PCV7 (Prevnar7) Unknown Completed [facility] Pneumococcal 7 Conjugate, PCV7 (Prevnar7) Unknown Completed [facility] Pneumococcal 7 Conjugate, PCV7 (Prevnar7) Unknown Completed [facility] Pneumococcal 7 Conjugate, PCV7 (Prevnar7) Unknown Completed [facility] IPV Unknown Completed [facility] IPV Unknown Completed [facility] Varicella (varivax)(chicken pox) Unknown Completed [facility] Varicella (varivax)(chicken pox) Unknown Completed [facility] Influenza Virus Vaccine Quad IM, Preserv and ABX Free 6 MO-64 YRS (FLUCELVAX) Unknown Completed [facility] Influenza Virus Vaccine Quad IM, Preserv and ABX Free 6 MO-64 YRS (FLUCELVAX) Unknown Completed [facility] SARS-COV-2 COVID-19 PFIZER VACCINE Unknown Completed [facility] SARS-COV-2 COVID-19 PFIZER VACCINE Unknown Completed [facility] SARS-COV-2 COVID-19 PFIZER VACCINE Unknown Completed [facility] DTaP, Unspecified Formulation Unknown Completed [facility] DTaP, Unspecified Formulation Unknown Completed [facility] DTaP, Unspecified Formulation Unknown Completed [facility] Pediarix (dtap/hep B/ipv) Unknown Completed [facility] Dtap/ipv Unknown Completed [facility] Influenza Virus Vaccine Quad .5 mL IM 6+ MO (FLUZONE/FLULAVAL/F LUARIX) Unknown Completed [facility] Flu Trivalent Unknown Completed [facility] Flu Trivalent Unknown Completed [facility] Influenza Virus Vaccine - Whole Unknown Completed [facility] HEPATITIS A Unknown Completed [facility] HEPATITIS A Unknown Completed [facility] Hep B, Adol or Pedi Dosage Unknown Completed [facility] Hep B, Adol or Pedi Dosage Unknown Completed [facility] HIB 4 Dose Schedule Unknown Completed [facility] HIB 4 Dose Schedule Unknown Completed [facility] HIB 4 Dose Schedule Unknown Completed [facility] HIB 4 Dose Schedule Unknown Completed [facility] MMR Unknown Completed [facility] MMR Unknown Completed [facility] Pneumococcal 7 Conjugate, PCV7 (Prevnar7) Unknown Completed [facility] Pneumococcal 7 Conjugate, PCV7 (Prevnar7) Unknown Completed [facility] Pneumococcal 7 Conjugate, PCV7 (Prevnar7) Unknown Completed [facility] Pneumococcal 7 Conjugate, PCV7 (Prevnar7) Unknown Completed [facility] IPV Unknown Completed [facility] IPV Unknown Completed [facility] Varicella (varivax)(chicken pox) Unknown Completed [facility] Varicella (varivax)(chicken pox) Unknown Completed [facility] Influenza Virus Vaccine Quad IM, Preserv and ABX Free 6 MO-64 YRS (FLUCELVAX) Unknown Completed [facility] Influenza Virus Vaccine Quad IM, Preserv and ABX Free 6 MO-64 YRS (FLUCELVAX) Unknown Completed [facility] SARS-COV-2 COVID-19 PFIZER VACCINE Unknown Completed [facility] SARS-COV-2 COVID-19 PFIZER VACCINE Unknown Completed [facility] SARS-COV-2 COVID-19 PFIZER VACCINE Unknown Completed [facility] DTaP, Unspecified Formulation Unknown Completed [facility] DTaP, Unspecified Formulation Unknown Completed [facility] DTaP, Unspecified Formulation Unknown Completed [facility] Pediarix (dtap/hep B/ipv) Unknown Completed [facility] Dtap/ipv Unknown Completed [facility] Influenza Virus Vaccine Quad .5 mL IM 6+ MO (FLUZONE/FLULAVAL/F LUARIX) Unknown Completed [facility] Flu Trivalent Unknown Completed [facility] Flu Trivalent Unknown Completed [facility] Influenza Virus Vaccine - Whole Unknown Completed [facility] HEPATITIS A Unknown Completed [facility] HEPATITIS A Unknown Completed [facility] Hep B, Adol or Pedi Dosage Unknown Completed [facility] Hep B, Adol or Pedi Dosage Unknown Completed [facility] HIB 4 Dose Schedule Unknown Completed [facility] HIB 4 Dose Schedule Unknown Completed [facility] HIB 4 Dose Schedule Unknown Completed [facility] HIB 4 Dose Schedule Unknown Completed [facility] MMR Unknown Completed [facility] MMR Unknown Completed [facility] Pneumococcal 7 Conjugate, PCV7 (Prevnar7) Unknown Completed [facility] Pneumococcal 7 Conjugate, PCV7 (Prevnar7) Unknown Completed [facility] Pneumococcal 7 Conjugate, PCV7 (Prevnar7) Unknown Completed [facility] Pneumococcal 7 Conjugate, PCV7 (Prevnar7) Unknown Completed [facility] IPV Unknown Completed [facility] IPV Unknown Completed [facility] Varicella (varivax)(chicken pox) Unknown Completed [facility] Varicella (varivax)(chicken pox) Unknown Completed [facility] Influenza Virus Vaccine Quad IM, Preserv and ABX Free 6 MO-64 YRS (FLUCELVAX) Unknown Completed [facility] Influenza Virus Vaccine Quad IM, Preserv and ABX Free 6 MO-64 YRS (FLUCELVAX) Unknown Completed [facility] SARS-COV-2 COVID-19 PFIZER VACCINE Unknown Completed [facility] SARS-COV-2 COVID-19 PFIZER VACCINE Unknown Completed [facility] SARS-COV-2 COVID-19 PFIZER VACCINE Unknown Completed [facility] DTaP, Unspecified Formulation Unknown Completed [facility] DTaP, Unspecified Formulation Unknown Completed [facility] DTaP, Unspecified Formulation Unknown Completed [facility] Pediarix (dtap/hep B/ipv) Unknown Completed [facility] Dtap/ipv Unknown Completed [facility] Influenza Virus Vaccine Quad .5 mL IM 6+ MO (FLUZONE/FLULAVAL/F LUARIX) Unknown Completed [facility] Flu Trivalent Unknown Completed [facility] Flu Trivalent Unknown Completed [facility] Influenza Virus Vaccine - Whole Unknown Completed [facility] HEPATITIS A Unknown Completed [facility] HEPATITIS A Unknown Completed [facility] Hep B, Adol or Pedi Dosage Unknown Completed [facility] Hep B, Adol or Pedi Dosage Unknown Completed [facility] HIB 4 Dose Schedule Unknown Completed [facility] HIB 4 Dose Schedule Unknown Completed [facility] HIB 4 Dose Schedule Unknown Completed [facility] HIB 4 Dose Schedule Unknown Completed [facility] MMR Unknown Completed [facility] MMR Unknown Completed [facility] Pneumococcal 7 Conjugate, PCV7 (Prevnar7) Unknown Completed [facility] Pneumococcal 7 Conjugate, PCV7 (Prevnar7) Unknown Completed [facility] Pneumococcal 7 Conjugate, PCV7 (Prevnar7) Unknown Completed [facility] Pneumococcal 7 Conjugate, PCV7 (Prevnar7) Unknown Completed [facility] IPV Unknown Completed [facility] IPV Unknown Completed [facility] Varicella (varivax)(chicken pox) Unknown Completed [facility] Varicella (varivax)(chicken pox) Unknown Completed [facility] Influenza Virus Vaccine Quad IM, Preserv and ABX Free 6 MO-64 YRS (FLUCELVAX) Unknown Completed [facility] Influenza Virus Vaccine Quad IM, Preserv and ABX Free 6 MO-64 YRS (FLUCELVAX) Unknown Completed [facility] SARS-COV-2 COVID-19 PFIZER VACCINE Unknown Completed [facility] SARS-COV-2 COVID-19 PFIZER VACCINE Unknown Completed [facility] SARS-COV-2 COVID-19 PFIZER VACCINE Unknown Completed [facility] DTaP, Unspecified Formulation Unknown Completed [facility] DTaP, Unspecified Formulation Unknown Completed [facility] DTaP, Unspecified Formulation Unknown Completed [facility] Pediarix (dtap/hep B/ipv) Unknown Completed [facility] Dtap/ipv Unknown Completed [facility] Influenza Virus Vaccine Quad .5 mL IM 6+ MO (FLUZONE/FLULAVAL/F LUARIX) Unknown Completed [facility] Flu Trivalent Unknown Completed [facility] Flu Trivalent Unknown Completed [facility] Influenza Virus Vaccine - Whole Unknown Completed [facility] HEPATITIS A Unknown Completed [facility] HEPATITIS A Unknown Completed [facility] Hep B, Adol or Pedi Dosage Unknown Completed [facility] Hep B, Adol or Pedi Dosage Unknown Completed [facility] HIB 4 Dose Schedule Unknown Completed [facility] HIB 4 Dose Schedule Unknown Completed [facility] HIB 4 Dose Schedule Unknown Completed [facility] HIB 4 Dose Schedule Unknown Completed [facility] MMR Unknown Completed [facility] MMR Unknown Completed [facility] Pneumococcal 7 Conjugate, PCV7 (Prevnar7) Unknown Completed [facility] Pneumococcal 7 Conjugate, PCV7 (Prevnar7) Unknown Completed [facility] Pneumococcal 7 Conjugate, PCV7 (Prevnar7) Unknown Completed [facility] Pneumococcal 7 Conjugate, PCV7 (Prevnar7) Unknown Completed [facility] IPV Unknown Completed [facility] IPV Unknown Completed [facility] Varicella (varivax)(chicken pox) Unknown Completed [facility] Varicella (varivax)(chicken pox) Unknown Completed [facility] Influenza Virus Vaccine Quad IM, Preserv and ABX Free 6 MO-64 YRS (FLUCELVAX) Unknown Completed [facility] Influenza Virus Vaccine Quad IM, Preserv and ABX Free 6 MO-64 YRS (FLUCELVAX) Unknown Completed [facility] SARS-COV-2 COVID-19 PFIZER VACCINE Unknown Completed [facility] SARS-COV-2 COVID-19 PFIZER VACCINE Unknown Completed [facility] SARS-COV-2 COVID-19 PFIZER VACCINE Unknown Completed [facility] DTaP, Unspecified Formulation Unknown Completed [facility] DTaP, Unspecified Formulation Unknown Completed [facility] DTaP, Unspecified Formulation Unknown Completed [facility] Pediarix (dtap/hep B/ipv) Unknown Completed [facility] Dtap/ipv Unknown Completed [facility] Influenza Virus Vaccine Quad .5 mL IM 6+ MO (FLUZONE/FLULAVAL/F LUARIX) Unknown Completed [facility] Flu Trivalent Unknown Completed [facility] Flu Trivalent Unknown Completed [facility] Influenza Virus Vaccine - Whole Unknown Completed [facility] HEPATITIS A Unknown Completed [facility] HEPATITIS A Unknown Completed [facility] Hep B, Adol or Pedi Dosage Unknown Completed [facility] Hep B, Adol or Pedi Dosage Unknown Completed [facility] HIB 4 Dose Schedule Unknown Completed [facility] HIB 4 Dose Schedule Unknown Completed [facility] HIB 4 Dose Schedule Unknown Completed [facility] HIB 4 Dose Schedule Unknown Completed [facility] MMR Unknown Completed [facility] MMR Unknown Completed [facility] Pneumococcal 7 Conjugate, PCV7 (Prevnar7) Unknown Completed [facility] Pneumococcal 7 Conjugate, PCV7 (Prevnar7) Unknown Completed [facility] Pneumococcal 7 Conjugate, PCV7 (Prevnar7) Unknown Completed [facility] Pneumococcal 7 Conjugate, PCV7 (Prevnar7) Unknown Completed [facility] IPV Unknown Completed [facility] IPV Unknown Completed [facility] Varicella (varivax)(chicken pox) Unknown Completed [facility] Varicella (varivax)(chicken pox) Unknown Completed [facility] Influenza Virus Vaccine Quad IM, Preserv and ABX Free 6 MO-64 YRS (FLUCELVAX) Unknown Completed [facility] Influenza Virus Vaccine Quad IM, Preserv and ABX Free 6 MO-64 YRS (FLUCELVAX) Unknown Completed [facility] SARS-COV-2 COVID-19 PFIZER VACCINE Unknown Completed [facility] SARS-COV-2 COVID-19 PFIZER VACCINE Unknown Completed [facility] SARS-COV-2 COVID-19 PFIZER VACCINE Unknown Completed [facility] DTaP, Unspecified Formulation Unknown Completed [facility] DTaP, Unspecified Formulation Unknown Completed [facility] DTaP, Unspecified Formulation Unknown Completed [facility] Pediarix (dtap/hep B/ipv) Unknown Completed [facility] Dtap/ipv Unknown Completed [facility] Influenza Virus Vaccine Quad .5 mL IM 6+ MO (FLUZONE/FLULAVAL/F LUARIX) Unknown Completed [facility] Flu Trivalent Unknown Completed [facility] Flu Trivalent Unknown Completed [facility] Influenza Virus Vaccine - Whole Unknown Completed [facility] HEPATITIS A Unknown Completed [facility] HEPATITIS A Unknown Completed [facility] Hep B, Adol or Pedi Dosage Unknown Completed [facility] Hep B, Adol or Pedi Dosage Unknown Completed [facility] HIB 4 Dose Schedule Unknown Completed [facility] HIB 4 Dose Schedule Unknown Completed [facility] HIB 4 Dose Schedule Unknown Completed [facility] HIB 4 Dose Schedule Unknown Completed [facility] MMR Unknown Completed [facility] MMR Unknown Completed [facility] Pneumococcal 7 Conjugate, PCV7 (Prevnar7) Unknown Completed [facility] Pneumococcal 7 Conjugate, PCV7 (Prevnar7) Unknown Completed [facility] Pneumococcal 7 Conjugate, PCV7 (Prevnar7) Unknown Completed [facility] Pneumococcal 7 Conjugate, PCV7 (Prevnar7) Unknown Completed [facility] IPV Unknown Completed [facility] IPV Unknown Completed [facility] Varicella (varivax)(chicken pox) Unknown Completed [facility] Varicella (varivax)(chicken pox) Unknown Completed [facility] Influenza Virus Vaccine Quad IM, Preserv and ABX Free 6 MO-64 YRS (FLUCELVAX) Unknown Completed [facility] Influenza Virus Vaccine Quad IM, Preserv and ABX Free 6 MO-64 YRS (FLUCELVAX) Unknown Completed [facility] SARS-COV-2 COVID-19 PFIZER VACCINE Unknown Completed [facility] SARS-COV-2 COVID-19 PFIZER VACCINE Unknown Completed [facility] SARS-COV-2 COVID-19 PFIZER VACCINE Unknown Completed [facility] DTaP, Unspecified Formulation Unknown Completed [facility] DTaP, Unspecified Formulation Unknown Completed [facility] DTaP, Unspecified Formulation Unknown Completed [facility] Pediarix (dtap/hep B/ipv) Unknown Completed [facility] Dtap/ipv Unknown Completed [facility] Influenza Virus Vaccine Quad .5 mL IM 6+ MO (FLUZONE/FLULAVAL/F LUARIX) Unknown Completed [facility] Flu Trivalent Unknown Completed [facility] Flu Trivalent Unknown Completed [facility] Influenza Virus Vaccine - Whole Unknown Completed [facility] HEPATITIS A Unknown Completed [facility] HEPATITIS A Unknown Completed [facility] Hep B, Adol or Pedi Dosage Unknown Completed [facility] Hep B, Adol or Pedi Dosage Unknown Completed [facility] HIB 4 Dose Schedule Unknown Completed [facility] HIB 4 Dose Schedule Unknown Completed [facility] HIB 4 Dose Schedule Unknown Completed [facility] HIB 4 Dose Schedule Unknown Completed [facility] MMR Unknown Completed [facility] MMR Unknown Completed [facility] Pneumococcal 7 Conjugate, PCV7 (Prevnar7) Unknown Completed [facility] Pneumococcal 7 Conjugate, PCV7 (Prevnar7) Unknown Completed [facility] Pneumococcal 7 Conjugate, PCV7 (Prevnar7) Unknown Completed [facility] Pneumococcal 7 Conjugate, PCV7 (Prevnar7) Unknown Completed [facility] IPV Unknown Completed [facility] IPV Unknown Completed [facility] Varicella (varivax)(chicken pox) Unknown Completed [facility] Varicella (varivax)(chicken pox) Unknown Completed [facility] Influenza Virus Vaccine Quad IM, Preserv and ABX Free 6 MO-64 YRS (FLUCELVAX) Unknown Completed [facility] Influenza Virus Vaccine Quad IM, Preserv and ABX Free 6 MO-64 YRS (FLUCELVAX) Unknown Completed [facility] SARS-COV-2 COVID-19 PFIZER VACCINE Unknown Completed [facility] SARS-COV-2 COVID-19 PFIZER VACCINE Unknown Completed [facility] SARS-COV-2 COVID-19 PFIZER VACCINE Unknown Completed [facility] DTaP, Unspecified Formulation Unknown Completed [facility] DTaP, Unspecified Formulation Unknown Completed [facility] DTaP, Unspecified Formulation Unknown Completed [facility] Pediarix (dtap/hep B/ipv) Unknown Completed [facility] Dtap/ipv Unknown Completed [facility] Influenza Virus Vaccine Quad .5 mL IM 6+ MO (FLUZONE/FLULAVAL/F LUARIX) Unknown Completed [facility] Flu Trivalent Unknown Completed [facility] Flu Trivalent Unknown Completed [facility] Influenza Virus Vaccine - Whole Unknown Completed [facility] HEPATITIS A Unknown Completed [facility] HEPATITIS A Unknown Completed [facility] Hep B, Adol or Pedi Dosage Unknown Completed [facility] Hep B, Adol or Pedi Dosage Unknown Completed [facility] HIB 4 Dose Schedule Unknown Completed [facility] HIB 4 Dose Schedule Unknown Completed [facility] HIB 4 Dose Schedule Unknown Completed [facility] HIB 4 Dose Schedule Unknown Completed [facility] MMR Unknown Completed [facility] MMR Unknown Completed [facility] Pneumococcal 7 Conjugate, PCV7 (Prevnar7) Unknown Completed [facility] Pneumococcal 7 Conjugate, PCV7 (Prevnar7) Unknown Completed [facility] Pneumococcal 7 Conjugate, PCV7 (Prevnar7) Unknown Completed [facility] Pneumococcal 7 Conjugate, PCV7 (Prevnar7) Unknown Completed [facility] IPV Unknown Completed [facility] IPV Unknown Completed [facility] Varicella (varivax)(chicken pox) Unknown Completed [facility] Varicella (varivax)(chicken pox) Unknown Completed [facility] Influenza Virus Vaccine Quad IM, Preserv and ABX Free 6 MO-64 YRS (FLUCELVAX) Unknown Completed [facility] Influenza Virus Vaccine Quad IM, Preserv and ABX Free 6 MO-64 YRS (FLUCELVAX) Unknown Completed [facility] SARS-COV-2 COVID-19 PFIZER VACCINE Unknown Completed [facility] SARS-COV-2 COVID-19 PFIZER VACCINE Unknown Completed [facility] SARS-COV-2 COVID-19 PFIZER VACCINE Unknown Completed [facility] DTaP, Unspecified Formulation Unknown Completed [facility] DTaP, Unspecified Formulation Unknown Completed [facility] DTaP, Unspecified Formulation Unknown Completed [facility] Pediarix (dtap/hep B/ipv) Unknown Completed [facility] Dtap/ipv Unknown Completed [facility] Influenza Virus Vaccine Quad .5 mL IM 6+ MO (FLUZONE/FLULAVAL/F LUARIX) Unknown Completed [facility] Flu Trivalent Unknown Completed [facility] Flu Trivalent Unknown Completed [facility] Influenza Virus Vaccine - Whole Unknown Completed [facility] HEPATITIS A Unknown Completed [facility] HEPATITIS A Unknown Completed [facility] Hep B, Adol or Pedi Dosage Unknown Completed [facility] Hep B, Adol or Pedi Dosage Unknown Completed [facility] HIB 4 Dose Schedule Unknown Completed [facility] HIB 4 Dose Schedule Unknown Completed [facility] HIB 4 Dose Schedule Unknown Completed [facility] HIB 4 Dose Schedule Unknown Completed [facility] MMR Unknown Completed [facility] MMR Unknown Completed [facility] Pneumococcal 7 Conjugate, PCV7 (Prevnar7) Unknown Completed [facility] Pneumococcal 7 Conjugate, PCV7 (Prevnar7) Unknown Completed [facility] Pneumococcal 7 Conjugate, PCV7 (Prevnar7) Unknown Completed [facility] Pneumococcal 7 Conjugate, PCV7 (Prevnar7) Unknown Completed [facility] IPV Unknown Completed [facility] IPV Unknown Completed [facility] Varicella (varivax)(chicken pox) Unknown Completed [facility] Varicella (varivax)(chicken pox) Unknown Completed [facility] Influenza Virus Vaccine Quad IM, Preserv and ABX Free 6 MO-64 YRS (FLUCELVAX) Unknown Completed [facility] Influenza Virus Vaccine Quad IM, Preserv and ABX Free 6 MO-64 YRS (FLUCELVAX) Unknown Completed [facility] SARS-COV-2 COVID-19 PFIZER VACCINE Unknown Completed [facility] SARS-COV-2 COVID-19 PFIZER VACCINE Unknown Completed [facility] SARS-COV-2 COVID-19 PFIZER VACCINE Unknown Completed [facility] DTaP, Unspecified Formulation Unknown Completed [facility] DTaP, Unspecified Formulation Unknown Completed [facility] DTaP, Unspecified Formulation Unknown Completed [facility] Pediarix (dtap/hep B/ipv) Unknown Completed [facility] Dtap/ipv Unknown Completed [facility] Influenza Virus Vaccine Quad .5 mL IM 6+ MO (FLUZONE/FLULAVAL/F LUARIX) Unknown Completed [facility] Flu Trivalent Unknown Completed [facility] Flu Trivalent Unknown Completed [facility] Influenza Virus Vaccine - Whole Unknown Completed [facility] HEPATITIS A Unknown Completed [facility] HEPATITIS A Unknown Completed [facility] Hep B, Adol or Pedi Dosage Unknown Completed [facility] Hep B, Adol or Pedi Dosage Unknown Completed [facility] HIB 4 Dose Schedule Unknown Completed [facility] HIB 4 Dose Schedule Unknown Completed [facility] HIB 4 Dose Schedule Unknown Completed [facility] HIB 4 Dose Schedule Unknown Completed [facility] MMR Unknown Completed [facility] MMR Unknown Completed [facility] Pneumococcal 7 Conjugate, PCV7 (Prevnar7) Unknown Completed [facility] Pneumococcal 7 Conjugate, PCV7 (Prevnar7) Unknown Completed [facility] Pneumococcal 7 Conjugate, PCV7 (Prevnar7) Unknown Completed [facility] Pneumococcal 7 Conjugate, PCV7 (Prevnar7) Unknown Completed [facility] IPV Unknown Completed [facility] IPV Unknown Completed [facility] Varicella (varivax)(chicken pox) Unknown Completed [facility] Varicella (varivax)(chicken pox) Unknown Completed [facility] Influenza Virus Vaccine Quad IM, Preserv and ABX Free 6 MO-64 YRS (FLUCELVAX) Unknown Completed [facility] Influenza Virus Vaccine Quad IM, Preserv and ABX Free 6 MO-64 YRS (FLUCELVAX) Unknown Completed [facility] SARS-COV-2 COVID-19 PFIZER VACCINE Unknown Completed [facility] SARS-COV-2 COVID-19 PFIZER VACCINE Unknown Completed [facility] SARS-COV-2 COVID-19 PFIZER VACCINE Unknown Completed [facility] DTaP, Unspecified Formulation Unknown Completed [facility] DTaP, Unspecified Formulation Unknown Completed [facility] DTaP, Unspecified Formulation Unknown Completed [facility] Pediarix (dtap/hep B/ipv) Unknown Completed [facility] Dtap/ipv Unknown Completed [facility] Influenza Virus Vaccine Quad .5 mL IM 6+ MO (FLUZONE/FLULAVAL/F LUARIX) Unknown Completed [facility] Flu Trivalent Unknown Completed [facility] Flu Trivalent Unknown Completed [facility] Influenza Virus Vaccine - Whole Unknown Completed [facility] HEPATITIS A Unknown Completed [facility] HEPATITIS A Unknown Completed [facility] Hep B, Adol or Pedi Dosage Unknown Completed [facility] Hep B, Adol or Pedi Dosage Unknown Completed [facility] HIB 4 Dose Schedule Unknown Completed [facility] HIB 4 Dose Schedule Unknown Completed [facility] HIB 4 Dose Schedule Unknown Completed [facility] HIB 4 Dose Schedule Unknown Completed [facility] MMR Unknown Completed [facility] MMR Unknown Completed [facility] Pneumococcal 7 Conjugate, PCV7 (Prevnar7) Unknown Completed [facility] Pneumococcal 7 Conjugate, PCV7 (Prevnar7) Unknown Completed [facility] Pneumococcal 7 Conjugate, PCV7 (Prevnar7) Unknown Completed [facility] Pneumococcal 7 Conjugate, PCV7 (Prevnar7) Unknown Completed [facility] IPV Unknown Completed [facility] IPV Unknown Completed [facility] Varicella (varivax)(chicken pox) Unknown Completed [facility] Varicella (varivax)(chicken pox) Unknown Completed [facility] Influenza Virus Vaccine Quad IM, Preserv and ABX Free 6 MO-64 YRS (FLUCELVAX) Unknown Completed [facility] Influenza Virus Vaccine Quad IM, Preserv and ABX Free 6 MO-64 YRS (FLUCELVAX) Unknown Completed [facility] SARS-COV-2 COVID-19 PFIZER VACCINE Unknown Completed [facility] SARS-COV-2 COVID-19 PFIZER VACCINE Unknown Completed [facility] SARS-COV-2 COVID-19 PFIZER VACCINE Unknown Completed [facility] DTaP, Unspecified Formulation Unknown Completed [facility] DTaP, Unspecified Formulation Unknown Completed [facility] DTaP, Unspecified Formulation Unknown Completed [facility] Pediarix (dtap/hep B/ipv) Unknown Completed [facility] Dtap/ipv Unknown Completed [facility] Influenza Virus Vaccine Quad .5 mL IM 6+ MO (FLUZONE/FLULAVAL/F LUARIX) Unknown Completed [facility] Flu Trivalent Unknown Completed [facility] Flu Trivalent Unknown Completed [facility] Influenza Virus Vaccine - Whole Unknown Completed [facility] HEPATITIS A Unknown Completed [facility] HEPATITIS A Unknown Completed [facility] Hep B, Adol or Pedi Dosage Unknown Completed [facility] Hep B, Adol or Pedi Dosage Unknown Completed [facility] HIB 4 Dose Schedule Unknown Completed [facility] HIB 4 Dose Schedule Unknown Completed [facility] HIB 4 Dose Schedule Unknown Completed [facility] HIB 4 Dose Schedule Unknown Completed [facility] MMR Unknown Completed [facility] MMR Unknown Completed [facility] Pneumococcal 7 Conjugate, PCV7 (Prevnar7) Unknown Completed [facility] Pneumococcal 7 Conjugate, PCV7 (Prevnar7) Unknown Completed [facility] Pneumococcal 7 Conjugate, PCV7 (Prevnar7) Unknown Completed [facility] Pneumococcal 7 Conjugate, PCV7 (Prevnar7) Unknown Completed [facility] IPV Unknown Completed [facility] IPV Unknown Completed [facility] Varicella (varivax)(chicken pox) Unknown Completed [facility] Varicella (varivax)(chicken pox) Unknown Completed [facility] Influenza Virus Vaccine Quad IM, Preserv and ABX Free 6 MO-64 YRS (FLUCELVAX) Unknown Completed [facility] Influenza Virus Vaccine Quad IM, Preserv and ABX Free 6 MO-64 YRS (FLUCELVAX) Unknown Completed [facility] SARS-COV-2 COVID-19 PFIZER VACCINE Unknown Completed [facility] SARS-COV-2 COVID-19 PFIZER VACCINE Unknown Completed [facility] SARS-COV-2 COVID-19 PFIZER VACCINE Unknown Completed [facility] DTaP, Unspecified Formulation Unknown Completed [facility] DTaP, Unspecified Formulation Unknown Completed [facility] DTaP, Unspecified Formulation Unknown Completed [facility] Pediarix (dtap/hep B/ipv) Unknown Completed [facility] Dtap/ipv Unknown Completed [facility] Influenza Virus Vaccine Quad .5 mL IM 6+ MO (FLUZONE/FLULAVAL/F LUARIX) Unknown Completed [facility] Flu Trivalent Unknown Completed [facility] Flu Trivalent Unknown Completed [facility] Influenza Virus Vaccine - Whole Unknown Completed [facility] HEPATITIS A Unknown Completed [facility] HEPATITIS A Unknown Completed [facility] Hep B, Adol or Pedi Dosage Unknown Completed [facility] Hep B, Adol or Pedi Dosage Unknown Completed [facility] HIB 4 Dose Schedule Unknown Completed [facility] HIB 4 Dose Schedule Unknown Completed [facility] HIB 4 Dose Schedule Unknown Completed [facility] HIB 4 Dose Schedule Unknown Completed [facility] MMR Unknown Completed [facility] MMR Unknown Completed [facility] Pneumococcal 7 Conjugate, PCV7 (Prevnar7) Unknown Completed [facility] Pneumococcal 7 Conjugate, PCV7 (Prevnar7) Unknown Completed [facility] Pneumococcal 7 Conjugate, PCV7 (Prevnar7) Unknown Completed [facility] Pneumococcal 7 Conjugate, PCV7 (Prevnar7) Unknown Completed [facility] IPV Unknown Completed [facility] IPV Unknown Completed [facility] Varicella (varivax)(chicken pox) Unknown Completed [facility] Varicella (varivax)(chicken pox) Unknown Completed [facility] Influenza Virus Vaccine Quad IM, Preserv and ABX Free 6 MO-64 YRS (FLUCELVAX) Unknown Completed [facility] Influenza Virus Vaccine Quad IM, Preserv and ABX Free 6 MO-64 YRS (FLUCELVAX) Unknown Completed [facility] Vital Signs Vital Name Observation Time Observation Value Comments S ource Systolic blood pressure 2023-12-22 13:15:00 116 mm[Hg] [facility] Diastolic blood pressure 2023-12-22 13:15:00 69 mm[Hg] [facility] Heart rate 2023-12-22 13:15:00 75 /min [facility] Respiratory rate 2023-12-22 13:15:00 27 /min [facility] Oxygen saturation in Arterial blood by Pulse oximetry 2023-12-22 13:15:00 98 /min [facility] Body temperature 2023-12-22 12:55:00 36.28 Maggie [facility] Body height 2023-12-22 11:14:00 [facility] 2023-12-22 11:14:00 99.791 kg [facility] BMI 2023-12-22 11:14:00 38.97 kg/m2 [facility] Systolic blood pressure 2023-12-22 13:00:00 103 mm[Hg] [facility] Diastolic blood pressure 2023-12-22 13:00:00 46 mm[Hg] [facility] Heart rate 2023-12-22 13:00:00 71 /min [facility] Respiratory rate 2023-12-22 13:00:00 21 /min [facility] Oxygen saturation in Arterial blood by Pulse oximetry 2023-12-22 13:00:00 97 /min [facility] Body temperature 2023-12-22 12:55:00 36.28 Maggie [facility] Body height 2023-12-22 11:14:00 160 cm [facility] Body weight 2023-12-22 11:14:00 99.791 kg [facility] BMI 2023-12-22 11:14:00 38.97 kg/m2 [facility] Systolic blood pressure 2023-11-17 21:02:00 117 mm[Hg] [facility] Diastolic blood pressure 2023-11-17 21:02:00 76 mm[Hg] [facility] Heart rate 2023-11-17 21:02:00 92 /[facility] 2023-11-17 21:02:00 160 cm [facility] Body weight 2023-11-17 21:02:00 103.511 kg [facility] BMI 2023-11-17 21:02:00 40.42 kg/m2 [facility] Oxygen saturation in Arterial blood by Pulse oximetry 2023-11-17 21:02:00 99 /min [facility] Systolic blood pressure 2023-10-07 14:41:00 129 mm[Hg] [facility] Diastolic blood pressure 2023-10-07 14:41:00 81 mm[Hg] [facility] Heart rate 2023-10-07 14:41:00 98 /min [facility] Body temperature 2023-10-07 14:41:00 36.72 Maggie [facility] Respiratory rate 2023-10-07 14:41:00 16 /min [facility] Body height 2023-10-07 14:41:00 160 cm [facility] Body weight 2023-10-07 14:41:00 99.247 kg [facility] BMI 2023-10-07 14:41:00 38.76 kg/m2 [facility] Oxygen saturation in Arterial blood by Pulse oximetry 2023-10-07 14:41:00 98 /min [facility] Systolic blood pressure 2023-08-19 20:13:00 127 mm[Hg] [facility] Diastolic blood pressure 2023-08-19 20:13:00 84 mm[Hg] [facility] Heart rate 2023-08-19 20:13:00 78 /min [facility] Body temperature 2023-08-19 20:13:00 36.17 Maggie [facility] Respiratory rate 2023-08-19 20:13:00 16 /min [facility] Body height 2023-08-19 20:13:00 160 cm [facility] Body weight 2023-08-19 20:13:00 100.835 kg [facility] BMI 2023-08-19 20:13:00 39.38 kg/m2 [facility] Oxygen saturation in Arterial blood by Pulse oximetry 2023-08-19 20:13:00 99 /min [facility] Systolic blood pressure 2023-05-16 20:31:00 123 mm[Hg] [facility] Diastolic blood pressure 2023-05-16 20:31:00 79 mm[Hg] [facility] Heart rate 2023-05-16 20:31:00 85 /min [facility] Respiratory rate 2023-05-16 20:31:00 18 /min [facility] Body height 2023-05-16 20:31:00 160 cm [facility] Body weight 2023-05-16 20:31:00 97.523 kg [facility] BMI 2023-05-16 20:31:00 38.09 kg/m2 [facility] Body mass index (BMI) [Percentile] Per age and sex 2023-05-16 20:31:00 98.36 % [facility] Oxygen saturation in Arterial blood by Pulse oximetry 2023-05-16 20:31:00 98 /min [facility] Systolic blood pressure 2023-04-04 20:22:00 116 mm[Hg] [facility] Diastolic blood pressure 2023-04-04 20:22:00 77 mm[Hg] [facility] Heart rate 2023-04-04 20:22:00 80 /min [facility] Body height 2023-04-04 20:22:00 160 cm [facility] Body weight 2023-04-04 20:22:00 98.748 kg [facility] BMI 2023-04-04 20:22:00 38.56 kg/m2 [facility] Body mass index (BMI) [Percentile] Per age and sex 2023-04-04 20:22:00 98.44 % [facility] Oxygen saturation in Arterial blood by Pulse oximetry 2023-04-04 20:22:00 98 /min [facility] Systolic blood pressure 2023-04-03 20:32:00 120 mm[Hg] [facility] Diastolic blood pressure 2023-04-03 20:32:00 80 mm[Hg] [facility] Heart rate 2023-04-03 20:32:00 91 /min [facility] Respiratory rate 2023-04-03 20:32:00 18 /min [facility] Body height 2023-04-03 20:32:00 160 cm [facility] Body weight 2023-04-03 20:32:00 98.431 kg [facility] BMI 2023-04-03 20:32:00 38.44 kg/m2 [facility] Body mass index (BMI) [Percentile] Per age and sex 2023-04-03 20:32:00 98.42 % [facility] Systolic blood pressure 2023-01-28 20:08:00 126 mm[Hg] [facility] Diastolic blood pressure 2023-01-28 20:08:00 79 mm[Hg] [facility] Heart rate 2023-01-28 20:08:00 98 /min [facility] Body height 2023-01-28 20:08:00 160 cm [facility] Body weight 2023-01-28 20:08:00 97.841 kg [facility] BMI 2023-01-28 20:08:00 38.21 kg/m2 [facility] Body mass index (BMI) [Percentile] Per age and sex 2023-01-28 20:08:00 98.43 % [facility] Oxygen saturation in Arterial blood by Pulse oximetry 2023-01-28 20:08:00 98 /min [facility] Systolic blood pressure 2023-01-02 19:38:00 137 mm[Hg] [facility] Diastolic blood pressure 2023-01-02 19:38:00 79 mm[Hg] [facility] Heart rate 2023-01-02 19:38:00 100 /min [facility] Body temperature 2023-01-02 19:38:00 36.89 Maggie [facility] Respiratory rate 2023-01-02 19:38:00 18 /min [facility] Body height 2023-01-02 19:38:00 160 cm [facility] Body weight 2023-01-02 19:38:00 97.705 kg [facility] BMI 2023-01-02 19:38:00 38.16 kg/m2 [facility] Body mass index (BMI) [Percentile] Per age and sex 2023-01-02 19:38:00 98.44 % [facility] Systolic blood pressure 2022-12-27 18:35:00 146 mm[Hg] [facility] Diastolic blood pressure 2022-12-27 18:35:00 88 mm[Hg] [facility] Heart rate 2022-12-27 18:35:00 106 /min [facility] Body height 2022-12-27 18:29:00 160 cm [facility] Body weight 2022-12-27 18:29:00 100.789 kg [facility] BMI 2022-12-27 18:29:00 39.36 kg/m2 [facility] Body mass index (BMI) [Percentile] Per age and sex 2022-12-27 18:29:00 98.64 % [facility] Oxygen saturation in Arterial blood by Pulse oximetry 2022-12-27 18:29:00 97 /min [facility] Systolic blood pressure 2022-12-11 18:47:00 143 mm[Hg] [facility] Diastolic blood pressure 2022-12-11 18:47:00 89 mm[Hg] [facility] Heart rate 2022-12-11 18:47:00 91 [facility] 2022-12-11 18:47:00 35.56 Maggie [facility] Body height 2022-12-11 18:47:00 160 cm [facility] Body weight 2022-12-11 18:47:00 97.841 kg [facility] BMI 2022-12-11 18:47:00 38.21 kg/m2 [facility] Body mass index (BMI) [Percentile] Per age and sex 2022-12-11 18:47:00 98.47 % [facility] Systolic blood pressure 2022-11-15 16:36:00 135 mm[Hg] [facility] Diastolic blood pressure 2022-11-15 16:36:00 90 mm[Hg] [facility] Heart rate 2022-11-15 16:35:00 80 /min [facility] Body height 2022-11-15 16:35:00 160 cm [facility] Body weight 2022-11-15 16:35:00 99.655 kg [facility] BMI 2022-11-15 16:35:00 38.92 kg/m2 [facility] Body mass index (BMI) [Percentile] Per age and sex 2022-11-15 16:35:00 98.60 % [facility] Oxygen saturation in Arterial blood by Pulse oximetry 2022-11-15 16:35:00 98 /min [facility] Procedures Procedure Date / Time Performed Performing Clinician Source SURGICAL PATHOLOGY EXAM 2023-12-22 12:33:00 Dayan Haque [facility] COLONOSCOPY 2023-12-22 12:05:00 Dayan Haque [facility] COLONOSCOPY (ENDO) 2023-12-22 11:40:[facility] 2023-12-22 11:40:27 Aicha [facility] POCT TEST 2023-12-22 11:25:00 Jammie Salas at [facility] POCT TEST 2023-12-22 11:25:00 Jammie Salas at [facility] ASSIGNMENT OF BENEFITS 2023-12-22 10:39:34 Docto r Unassigned, [facility] [place] [facility] GIARDIA CRYPTOSPORIDIUM AG SCR 2023-10-12 [facility]:00[facility] 2023-10-12 20:00:00 Tanya Haque [facility] CLOSTRIDIUM DIFFICILE TOXIN 2023-10-12 20:00[facility] 2023-10-12 20:00:00 Kartik Haque [facility] C-REACTIVE PROTEIN 2023-08-19 21:40[facility] 2023-08-19 21:40:00 Dayan Haque [facility] LAB ONLY CELIAC SCREEN IGA 2023-08-19 21:40:00 Dayan Lentz i [facility] FLU VACC ([id number]), 6 MO-64 YRS, .5ML, IM, QUAD (FLUCELVAX) 2023-08-01 19:21:37 Jamal Holcomb [facility] CONSENT FOR CONTRACEPTION 2023-01-02 05:01:00 Do ctor Unassigned, [facility] [place] [facility] POCT TEST 2023-01-02 00:00:00 Adkey, Irma Nicole [facility] POCT HEMOGLOBIN A1C TEST 2022-12-27 00:00:00 Manuel Holcomb [facility] CT ABDOMEN PELVIS WO CONTRAST 2022-12-05 15:55:00 Jamal Holcomb [facility] COMP. METABOLIC PANEL ([id number]) 2022-11-15 18:43:00 Jamal Holcomb [facility] CBC WITH DIFF 2022-11-15 18:43:[address] [facility] URINALYSIS 2022-11-15 18:43:00 Jamal Holcomb [facility] URINE CULTURE 2022-11-15 18:43:[address] [facility] FLU VACC ([id number]), 6 MO-64 YRS, .5ML, IM, QUAD (FLUCELVAX) 2022-11-15 16:44:09 Jamal Holcomb [facility] Encounters Start Date/Time End Date/Time Encounter Type Admission Type Attending [facility] Care Facility Care Department Encounter ID Source 2024-04-15 14:30:00 2024-04-15 14:30:00 Outpatient RADHA SU MARISOL [facility] [id number] [facility] 2024-04-05 15:30:00 2024-04-05 15:30:00 Outpatient NICOLE HERNANDEZ CHERYAL [facility] [id number] [facility] 2024-01-30 16:30:00 2024-01-30 16:30:00 Outpatient JAMAL YOUNG [facility] [id number] [facility] 2024-01-06 14:00:00 2024-01-06 14:00:00 Outpatient R [facility] [id number] [facility] 2024-01-06 00:00:00 2024-01-06 00:00:00 [facility] 1.0.114 350.1.13.10 [id number] [id number] [facility] 2024-01-01 00:00:00 2024-01-01 00:00:00 Evangelist Holcomb [facility] 1.114 350.1.13.10 4.2.7.2.686 [id number] [facility] 2023-12-22 05:39:00 2023-12-22 08:27:00 Outpatient R MALATHIGEOVANNAGABRIELLA [facility] [id number] [facility] 2023-12-22 05:39:00 2023-12-22 08:27:00 Hospital Encounter Ivania [facility] ([facility] 1.0.114 350.1.13.10 4.2.7.2.686 [id number] [facility] 2023-12-22 07:15:00 2023-12-22 08:00:00 Surgery MalathiNataliia [facility] 1..114 350.1.13.10 4.2.7.2.686 [id number] [facility] 2023-12-22 00:00:00 2023-12-22 00:00:00 Orders Only Doctor Unassigned, [facility] [place] [facility] 1.0.114 350.1.13.10 4.2.7.2.686 [id number] [facility] 2023-12-17 00:00:00 2023-12-17 00:00:00 Patient Secure Msg Doctor Unassigned, [facility] [place] [facility] 1..114 350.1.13.10 4.2.7.2.686 [id number] [facility] 2023-12-13 09:30:00 2023-12-13 09:45:00 Clinical Rn Visit Pob, Adc Lab Main [facility] 1.114 350.1.13.10 4.2.7.2.686 [id number] [facility] 2023-12-13 09:30:00 2023-12-13 09:30:00 [facility] [id number] 2023-11-28 00:00:00 2023-11-28 00:00:00 Refill Aicha [facility] 1.114 350.1.13.10 4.2.7.2.686 [id number] [facility] 2023-11-17 15:00:00 2023-11-17 15:24:12 [facility] [id number] 2023-11-17 15:00:00 2023-11-17 15:24:12 Office Visit Aicha [facility] 1.114 350.1.13.10 4.2.7.2.686 [id number] [facility] 2023-10-16 00:00:00 2023-10-16 00:00:00 Telephone Dayan Haque [facility] 1..114 350.1.13.10 4.2.7.2.686 [id number] [id number] [facility] 2023-10-13 08:00:00 2023-10-13 08:15:00 Clinical Rn Visit Rena, [facility] BUILDING 1.84.114 350.1.13.10 4.2.7.2.686 [id number] [facility] 2023-10-13 08:00:00 2023-10-13 08:00:00 Outpatient R [facility] [id number] [facility] 2023-10-12 10:03:00 2023-10-12 23:59:00 Hospital Encounter Al Perkins BUILDING 1.84.114 350.1.13.10 4.2.7.2.686 [id number] [facility] 2023-10-12 00:00:00 2023-10-12 23:59:00 Outpatient R AL PERKINS [facility] ACO [id number] [facility] 2023-10-10 00:00:00 2023-10-10 00:00:00 Reftrace Sierragrupo [facility] MEDICAL OFFICE BUILDING 1.84.114 350.1.13.10 4.2.7.2.686 [id number] [id number] [facility] 2023-10-09 00:00:00 2023-10-09 00:00:00 Evangelist Holcomb [facility] MEDICAL OFFICE BUILDING 1.84.114 350.1.13.10 4.2.7.2.686 [id number] 044 [id number] [facility] 2023-10-07 09:00:00 2023-10-07 09:30:00 Office Visit MalathiGeovannagabriella [facility] 1.2.840.114 350.1.13.10 4.2.7.2.686 [id number] [facility] 2023-10-07 09:00:00 2023-10-07 09:00:00 Outpatient R [facility] [id number] [facility] 2023-10-03 07:38:43 2023-10-03 23:59:00 Outpatient R [facility] [id number] [facility] 2023-10-03 07:38:43 2023-10-03 23:59:[facility] 1.2.840.114 350.1.13.10 4.2.7.2.686 [id number] [facility] 2023-09-09 11:00:24 2023-09-09 23:59:00 Outpatient R [facility] RAD [id number] [facility] 2023-09-09 11:00:24 2023-09-09 23:59:00 Hospital Encounter Ivania [facility] 1.2.840.114 350.1.13.10 4.2.7.2.686 [id number] [facility] 2023-09-09 00:00:00 2023-09-09 00:00:00 Jamal Cordoba [facility] BUILDING 1.2.840.114 350.1.13.10 4.2.7.2.686 [id number] 044 [id number] [facility] 2023-09-08 00:00:00 2023-09-08 00:00:00 [facility] 1.2.840.114 350.1.13.10 4.2.7.2.686 [id number] [facility] 2023-09-03 08:40:16 2023-09-03 23:59:00 [facility] [id number] [facility] 2023-09-03 08:40:16 2023-09-03 23:59:00 Hospital Encounter DominickNataliia [facility] 1.84.114 350.1.13.10 4.2.7.2.686 [id number] [facility] 2023-09-02 00:00:00 2023-09-02 00:00:00 Patient Secure Msg Doctor Unassigned, [facility] [place] [facility] 1.84.114 350.1.13.10 4.2.7.2.686 [id number] [facility] 2023-08-19 14:30:00 2023-08-19 15:00:00 Office Visit Ivania [facility] 1.840.114 350.1.13.10 4.2.7.2.686 [id number] 072 [id number] [facility] 2023-08-19 14:30:00 2023-08-19 14:30:00 Outpatient R [facility]FER[facility]ABRIELLA [facility] [id number] [facility] 2023-08-19 00:00:00 2023-08-19 00:00:00 [facility] 1.840.114 350.1.13.10 4.2.7.2.686 [id number] 044 [id number] [facility] 2023-08-01 14:20:00 2023-08-01 15:56:23 Outpatient JAMAL YOUNG [facility] [id number] [facility] 2023-08-01 14:20:00 2023-08-01 15:56:23 Nurse Visit Nurse, Jamal [facility] 1.2840.114 350.1.13.10 4.2.7.2.686 [id number] [facility] 2023-07-18 14:20:00 2023-07-18 14:20:00 Outpatient R [facility] [id number] [facility] 2023-06-25 00:00:00 2023-06-25 00:00:00 Evangelist Holcomb [facility] YULIET?[facility] MEDICAL OFFICE BUILDING 1.2840.114 350.1.13.10 4.2.7.2.686 [id number] [facility] 2023-06-24 00:00:00 2023-06-24 00:00:00 [facility]ина [facility] MEDICAL OFFICE BUILDING 1.2840.114 350.1.13.10 4.2.7.2.686 [id number] 044 [id number] [facility] 2023-06-23 00:00:00 2023-06-23 00:00:00 Екатерина [facility] MEDICAL OFFICE BUILDING 1.20.114 350.1.13.10 4.2.7.2.686 [id number] [facility] 2023-05-22 00:00:00 2023-05-22 00:00:00 RefЕкатерина ThompsonC[facility] MEDICAL OFFICE BUILDING 1.2840.114 350.1.13.10 4.2.7.2.686 [id number] 044 [id number] [facility] 2023-05-21 00:00:00 2023-05-21 00:00:00 Evangelist Holcomb [facility] YULIET?[facility] MEDICAL OFFICE BUILDING 1.2840.114 350.1.13.10 4.2.7.2.686 [id number] 044 [id number] [facility] 2023-05-16 16:30:00 2023-05-16 16:45:00 Clinical Rn Visit Lab, Madi Mata [facility] OFF[facility] BUILDING 1.2840.114 350.1.13.10 4.2.7.2.686 [id number] [facility] 2023-05-16 15:30:00 2023-05-16 15:54:18 Outpatient R AICHA [facility] [id number] [facility] 2023-05-16 15:30:00 2023-05-16 15:54:18 Office Visit Екатерина [facility]Nov[facility] 1.2840.114 350.1.13.10 4.2.7.2.686 [id number] [facility] 2023-05-16 00:00:00 2023-05-16 00:00:00 Refill Екатерина HolcombNov[facility] CenterCL[facility]ITA [facility]ORV[facility] MEDICAL OFFICE BUILDING 1.20.114 350.1.13.10 4.2.7.2.686 [id number] [facility] 2023-05-16 00:00:00 2023-05-16 00:00:00 Refill Екатерина [facility]combNov[facility] CenterCL[facility] MEDICAL OFFICE BUILDING 1.2840.114 350.1.13.10 4.2.7.2.686 [id number] [id number] [facility] 2023-04-18 00:00:00 2023-04-18 00:00:00 Refill Екатерина [facility]combNov[facility] CenterCL[facility] MEDICAL OFFICE BUILDING 1.2840.114 350.1.13.10 4.2.7.2.686 [id number] [facility] 2023-04-04 15:00:00 2023-04-04 16:01:09 Office Visit [facility] BUILD[facility] 1.840.114 350.1.13.10 4.2.7.2.686 [id number] 044 [id number] [facility] 2023-04-04 15:00:00 2023-04-04 16:01:09 [facility] [id number] [facility] 2023-04-03 15:30:00 2023-04-03 15:43:34 Outpatient R RADHA GARCES MARISOL [facility] [id number] [facility] 2023-04-03 15:30:00 2023-04-03 15:43:34 Office Visit Radha Garces [facility] 1.840.114 350.1.13.10 4.2.7.2.686 [id number] [facility] 2023-04-02 15:30:00 2023-04-02 15:30:00 Outpatient Sheldon FARIAS JESSA [facility] [id number] [facility] 2023-03-25 00:00:00 2023-03-25 00:00:00 Evangelist Farias Jessa [facility] 1.840.114 350.1.13.10 4.2.7.2.686 [id number] [facility] 2023-03-19 00:00:00 2023-03-19 00:00:00 Reftrace [facility]ерина [facility] BUILD[facility] 1..840.114 350.1.13.10 4.2.7.2.686 [id number] [id number] [facility] 2023-03-18 00:00:00 2023-03-18 00:00:00 Refill Jamal Holcomb [facility] YUILET?[facility] MEDICAL OFFICE BUILDING 1.2.840.114 350.1.13.10 4.2.7.2.686 [id number] 044 [id number] [facility] 2023-02-22 00:00:00 2023-02-22 00:00:00 Refill Jessa Farias [facility] P[facility]O [facility] NAL BUILDING 1.2.840.114 350.1.13.10 4.2.7.2.686 [id number] [facility] 2023-02-20 00:00:00 2023-02-20 00:00:00 [facility] MEDICAL OFFICE BUILDING 1.2840.114 350.1.13.10 4.2.7.2.686 [id number] 044 [id number] [facility] 2023-02-18 00:00:00 2023-02-18 00:00:00 Refill [facility]ина [facility] MEDICAL OFFICE BUILDING 1.2.840.114 350.1.13.10 4.2.7.2.686 [id number] [facility] 2023-02-14 00:00:00 2023-02-14 00:00:00 Refill [facility]CL[facility] MEDICAL OFFICE BUILDING 1.2.840.114 350.1.13.10 4.2.7.2.686 [id number] [facility] 2023-02-12 00:00:00 2023-02-12 00:00:00 Telephone Jamal Holcomb [facility] MEDICAL OFFICE BUILDING 1.2.840.114 350.1.13.10 4.2.7.2.686 [id number] [id number] [facility] 2023-02-02 00:00:00 2023-02-02 00:00:00 Refill Jessa Farias [facility] 1.20.114 350.1.13.10 4.2.7.2.686 [id number] [facility] 2023-01-28 15:00:00 2023-01-28 15:39:11 Office Visit [facility]катерина [facility]combCritical [facility] hospital?[facility] MEDICAL OFFICE BUILDING 1.840.114 350.1.13.10 4.2.7.2.686 [id number] 044 [id number] [facility] 2023-01-28 15:00:00 2023-01-28 15:39:11 Outpatient R AICHA [facility] [id number] [facility] 2023-01-23 00:00:00 2023-01-23 00:00:00 Refill Aicha [facility] MEDICAL OFFICE BUILDING 1.84.114 350.1.13.10 4.2.7.2.686 [id number] [id number] [facility] 2023-01-03 00:00:00 2023-01-03 00:00:00 Refill Aicha [facility] MEDICAL OFFICE BUILDING 1.840.114 350.1.13.10 4.2.7.2.686 [id number] 044 [id number] [facility] 2023-01-03 00:00:00 2023-01-03 00:00:00 Case Management Jessa Farias [facility] 1.2840.114 350.1.13.10 4.2.7.2.686 [id number] [facility] 2023-01-02 15:15:00 2023-01-02 15:30:00 Clinical Rn Visit 2, [facility] 1.84.114 350.1.13.10 4.2.7.2.686 [id number] [facility] 2023-01-02 14:30:00 2023-01-02 15:08:26 Outpatient R [facility]ARRETT [facility] [id number] [facility] 2023-01-02 14:30:00 2023-01-02 15:08:26 Office Visit Jessa Farias [facility] BUILDING 1.84.114 350.1.13.10 4.2.7.2.686 [id number] [facility] 2023-01-02 00:00:00 2023-01-02 00:00:00 Orders Only Doctor Unassigned, [facility] [facility] 1..114 350.1.13.10 4.2.7.2.686 [id number] [facility] 2022-12-27 13:30:00 2022-12-27 14:24:50 Outpatient R AICHA JAMAL [facility] [id number] [facility] 2022-12-27 13:30:00 2022-12-27 14:24:50 [facility] 1.84.114 350.1.13.10 4.2.7.2.686 [id number] 044 [id number] [facility] 2022-12-11 13:00:00 2022-12-11 13:30:00 Office Visit Jeffy Urena [facility] 1..114 350.1.13.10 4.2.7.2.686 [id number] [facility] 2022-12-11 13:00:00 2022-12-11 13:00:00 Outpatient R JEFFY URENA [facility] [id number] [facility] 2022-12-11 12:45:00 2022-12-11 13:00:00 Clinical Rn Visit [facility] Alvaro [facility] 1.2.114 350.1.13.10 4.2.7.2.686 [id number] [facility] 2022-12-11 00:00:00 2022-12-11 00:00:00 Letter (Out) Alvaro [facility] 1..114 350.1.13.10 4.2.7.2.686 [id number] [id number] [facility] 2022-12-08 00:00:00 2022-12-08 00:00:00 Evangelist Holcomb [facility] MEDICAL OFFICE BUILDING 1.84.114 350.1.13.10 4.2.7.2.686 [id number] [id number] [facility] 2022-12-05 09:36:16 2022-12-05 23:59:00 Outpatient R SIERRAJAMAL FOSTER [facility] [id number] [facility] 2022-12-05 09:36:16 2022-12-05 23:59:00 Hospital Encounter Aicha Jamal [facility] 1.84.114 350.1.13.10 4.2.7.2.686 [id number] [facility] 2022-11-15 12:00:00 2022-11-15 13:01:03 Clinical Rn Visit Lab, Madi Holcomb [facility] MEDICAL OFFICE BUILDING 1.84.114 350.1.13.10 4.2.7.2.686 [id number] [facility] 2022-11-15 10:00:00 2022-11-15 11:21:10 Office Visit Jamal Holcomb [facility] DAFNE HORVATH?[facility] BUILDING 1.2.840.114 350.1.13.10 4.2.7.2.686 [id number] [id number] [facility] 2022-11-15 10:00:00 2022-11-15 11:21:10 Outpatient R SIERRAGRUPO JAMAL [facility] [id number] [facility] Results Test Description Test Time Test Comments Results Result Co mments Source [id number] 11:25:00* Test Item Value Reference Range Interpretation Comme nts POCT PREG (test code = 1605) Negative On board controls acceptable with C Line (test code = 3574) Yes POCT PREG LOT # (test code = 3575) POCT PREG TEST DATE ( test code = 3576) [facility] [id number] 11:25:00* Test Item Value Reference Range Interpretation Comme nts POCT PREG (test code = 1605) Negative On board controls acceptable with C Line (test code = 3574) Yes POCT PREG LOT # (test code = 3575) POCT PREG TEST DATE ( test code = 3576) [facility] [id number] 20:18:00* Test Item Value Reference Range Interpretation Comme nts POCT PREG (test code = 1605) Negative On board controls acceptable with C Line (test code = 3574) Yes POCT PREG LOT # (test code = 3575) POCT PREG TEST DATE ( test code = 3576) [facility] [id number] 20:18:00* Test Item Value Reference Range Interpretation Comme nts POCT PREG (test code = 1605) Negative On board controls acceptable with C Line (test code = 3574) Yes POCT PREG LOT # (test code = 3575) POCT PREG TEST DATE ( test code = 3576) [facility] HEMOGLOBIN A1C [id number] 19:19:00* Test Item Value Reference Range Interpretation Comme nts POCT HBA1C (test code = 4548-4) 5.4 % 4-6 Lab Interpretation (test cod e = 63877-4) Normal [facility] HEM[facility]C [id number] 19:19:00* Test Item Value Reference Range Interpretation Comme [facility] POCT HBA1C (test code = 4548-4) 5.4 % 4-6 Lab Interpretation (test cod e = 27945-0) [facility]OLIC PAN[facility] (90756)2022-11-16 00:33:18* Test Item Value Reference Range Interpretation Comme [facility] NA (test code = 0352325132) 140 mmol/L 135-145 K (test code = 0704046981) 4.2 mmol/L 3.5-5.0 CL (test code = 1344464112) 103 mmol/L 98-108 CO2 TOTAL (test code = 1745013538) 25 mmol/L 23-31 AGAP (test code = 0495433158) 12 2-16 BUN (test code = 1473232977) 12 mg/dL 7-23 GLUCOSE (test code = 1251102022) 74 mg/dL 70-110 CREATININE (test code = 3376530615) 0.51 mg/dL 0.50-1.04 TOTAL BILI (test code = 3477647267) 0.6 mg/dL 0.1-1.1 CALCIUM (test code = 7612325346) 9.3 mg/dL 8.6-10.6 T PROTEIN (test code = 8284358240) 7.6 g/dL 6.3-8.2 ALBUMIN (test code = 3524460401) 4.7 g/dL 3.5-5.0 ALK PHOS (test code = 3316492763) 79 U/L 34-122 ALTv (test code = 1742-6) 79 U/L 5-35 H AST(SGOT) (test code = 9918887744) 105 U/L 13-40 H eGFR (test code = 7294051992) 157.1 mL/min/1.73m2 LEXUS (test code = LEXUS) Association of Glomerular Filtration Rate (GFR) and Staging of Kidney Disease* + --+ --+ ------+| GFR (mL/min/1.73 m2) ?| With Kidney Damage ?| ?Without Kidney Damage+ --------+ --------+ +| ?>90 ?| ?Stage one ?| ? Normal ?+ ---+ ---+ -------+| ?60-89 ?| ?Stage two ?| ? Decreased GFR ? + --+ --+ ------+| ?30-59 ?| ?Stage three ?| ? Stage three ? + --+ --+ ------+| ?15-29 ?| ?Stage four ? | ? Stage four ?+ ---+ ---+ -------+| ?<15 (or dialysis) ? ?| ?Stage five ? | ? Stage five ?+ ---+ ---+ -------+ *Each stage assumes the associated GFR level has been in effect for at least three months. ?Stages 1 to 5, with or without kidney disease, indicate chronic kidney disease. Notes: Determination of stages one and two (with eGFR >59mL/min/1.73 m2) requires estimation of kidney damage for at least three months as defined by structural or functional abnormalities of the kidney, manifested by either:Pathological abnormalities or Markers of kidney damage (including abnormalities in the composition of the blood or urine or abnormalities in imaging tests). Lab Interpretation (test code = 67387-6) Abnormal [facility] WITH [id number] 22:10:36* Test Item Value Reference Range Interpretation Comme nts WBC (test code = 6690-2) 7.54 See_Comment [Automated [employer]] The system which generated this result transmitted reference range: 4.50 - 13.50 10*3/?L. The reference range was not used to interpret this result as normal/abnormal. RBC (test code = 789-8) 5.19 See_Comment H [Automated [employer]] The system which generated this result transmitted reference range: 4.10 - 5.10 10*6/?L. The reference range was not used to interpret this result as normal/abnormal. HGB (test code = 718-7) 14.5 g/dL 12.0-16.0 HCT (test code = 4544-3) 44.3 % 36.0-45.0 MCV (test code = 787-2) 85.4 fL 78.0-95.0 MCH (test code = 785-6) 27.9 pg 26.0-32.0 MCHC (test code = 786-4) 32.7 g/dL 32.0-36.0 RDW-SD (test code = 11812-9) 45.4 fL 38.5-49.0 RDW-CV (test code = 788-0) 14.6 % 11.5-14.0 H PLT (test code = 777-3) 279 See_Comment [Automated messa ge] The system which generated this result transmitted reference range: 135 - 361 10*3/?L. The reference range was not used to interpret this result as normal/abnormal. MPV (test code = 58174-5) 11.3 fL 9.4-13.3 NRBC/100 WBC (test code = 6265257858) 0.0 See_Comment [Automated [employer] ssage] The system which generated this result transmitted reference range: 0.0 - 10.0 /100 WBCs. The reference range was not used to interpret this result as normal/abnormal. NRBC x10^3 (test code = 3313902014) See_Comment [Automated [employer]sa ge] The system which generated this result transmitted reference range: 10*3/?L. The reference range was not used to interpret this result as normal/abnormal. GRAN MAT (NEUT) % (test code = 770-8) 56.4 % IMM GRAN % (test code = 5590576112) 0.30 % LYMPH % (test code = 736-9) 33.7 % MONO % (test code = 5905-5) 6.9 % EOS % (test code = 713-8) 2.0 % BASO % (test code = 706-2) 0.7 % GRAN MAT x10^3(ANC) (test code = 0724701515) 4.26 10*3/uL 1.50-10.30 IMM GRAN x10^3 (test code = 0932615790) 0.00-0.06 LYMPH x10^3 (test code = 731-0) 2.54 10*3/uL 0.70-7.40 MONO x10^3 (test code = 742-7) 0.52 10*3/uL 0.00-0.50 H EOS x10^3 (test code = 711-2) 0.15 10*3/uL 0.00-0.40 BASO x10^3 (test code = 704-7) 0.05 10*3/uL 0.00-0.10 Lab Interpretation (test code = 43608-5) Abnormal [facility] History and Physical Notes Date/Time Note Provider Source 2023-12-19 09:32:51 [id number] ormatting of this note is different from the original.Endoscopy H & PAge: 18 year old Sex: FProcedure: ColonoscopyASA Class: IIIndication: chronic diarrhea, abnormal imaging of GI tractFHx: No FHx of colon cancer/advanced adenomas, esophageal or gastric malignancies, liver or pancreatic cancer/disease or IBD.AC or anti-platelets: NoAbdominal surgeries: NoneNSAIDs: NoPrior issues with anesthesia: No prior anesthesiaDefibrillator or pacemaker: NoBlood workup: 12/2021: INR 1.2, 05/2023: Normal Hgb, Plt and liver chem.Prior endoscopy: NoneMR ABDOMEN W WO CONTRAST 10/06/2023Impression: The known 5 cm liver lesion in segment 8 has signal characteristics suggestive of an adenoma. No contrast enhancement is seen at 20 minute delayed images using Eovist contrast, ruling out FNH. The liver is enlarged and steatotic.MR PELVIS W WO CONTRAST 09/11/2023Impression: No evidence of perianal fistula.MRE . Normal bowel loops with no evidence of acute inflammation, stricturing, fistulization, obstruction, or fluid collection/abscess formation. Prominent right lower quadrant lymph nodes may represent mesenteric adenitis.2. 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 Recommend MRI of the abdomen using Eovist contrast for confirmation. Enlarged and steatotic liver.CT A/P . Hepatosplenomegaly and hepatic steatosis.2. Questionable fistula visualized at the left gluteal cleft (series 2 image 137). Recommend clinical correlation.Past Medical History:Diagnosis DateADHDAnxiety and depressionNo current facility-administered medications for this encounter.Current Outpatient MedicationsMedication Sig Dispense RefillbusPIRone 10 mg tablet Take 1 tablet by mouth every morning and evening. 180 tablet 1propranoloL 10 mg tablet Take 1 tablet by mouth in the morning and 1 tablet in the evening. 90 tablet 1SERTraline (ZOLOFT) 100 mg tablet Take 1 tablet by mouth in the morning. 90 tablet 1topiramate 50 mg tablet Take 1 tablet by mouth every morning. 90 tablet 1peg-electrolyte soln 236-22.74-6.74 -5.86 gram solution Take 4,000 mL by mouth SEE-INSTRUCTIONS. As directed prior to your colonoscopy. 4000 mL 0dicyclomine 20 mg tablet Take 1 tablet by mouth 3 (three) times daily as needed for Abdominal pain. 60 tablet 0No Known AllergiesSocial HistorySocioeconomic HistoryMarital status: SingleTobacco UseSmoking status: NeverSmokeless tobacco: NeverTobacco comments:Patient states she vapes everydayVaping UseVaping Use: Never usedSubstance and Sexual ActivityAlcohol use: NeverDrug use: NeverSexual activity: YesPartners: MaleBirth control/protection: NoneSocial Determinants of HealthFinancial Resource Strain: Low Risk (04/04/2023)Overall Financial Resource Strain (CARDIA)Difficulty of Paying Living Expenses: Not hard at allFood Insecurity: No Food Insecurity (04/04/2023)Hunger Vital SignWorried About Running Out of Food in the Last Year: Never trueRan Out of Food in the Last Year: Never trueTransportation Needs: No Transportation Needs (04/04/2023)PRAPARE - TransportationLack of Transportation (Medical): NoLack of Transportation (Non-Medical): NoPhysical Activity: Sufficiently Active (04/04/2023)Exercise Vital SignDays of Exercise per Week: 5 daysMinutes of Exercise per Session: 40 minRecent Concern: Physical Activity - Insufficiently Active (01/28/2023)Exercise Vital SignDays of Exercise per Week: 3 daysMinutes of Exercise per Session: 20 minStress: Stress Concern Present (04/04/2023)[employer] - Occupational Stress QuestionnaireFeeling of Stress : To some extentSocial Connections: Unknown (04/04/2023)Social Connection and Isolation Panel [NHANES]Frequency of Communication with Friends and Family: More than three times a weekFrequency of Social Gatherings with Friends and Family: More than three times a weekAttends Yazdanism Services: NeverActive Member of Clubs or Organizations: NoAttends Club or Organization Meetings: Patient declinedMarital Status: Patient declinedRecent Concern: Social Connections - Socially Isolated (01/28/2023)Social Connection and Isolation Panel [NHANES]Frequency of Communication with Friends and Family: More than three times a weekFrequency of Social Gatherings with Friends and Family: Once a weekAttends Yazdanism Services: NeverActive Member of Clubs or Organizations: NoAttends Club or Organization Meetings: NeverMarital Status: Never marriedHousing Stability: Low Risk (04/04/2023)Housing Stability Vital SignUnable to Pay for Housing in the Last Year: NoNumber of Places Lived in the Last Year: 1Unstable Housing in the Last Year: NoMental Status: alertChest: normal inspiration, no increased work of breathingCardiovascular: regular rate and rythmnAbdomen: non-distendedImpression and Plan: 18yo woman who presents for colonoscopy for chronic diarrhea. Also noted to have a possible fistula of the left gluteal cleft on CT 12/2022 which was not apparent on MR 09/2023.Education provided to the patient about the procedure. Benefits, risks, alternatives, and likelihood of achieving patient's goals of care discussed. Risks discussed including but not limited to aspiration, infection, bleeding, perforation, missed polyps/lesions, failure to obtain a diagnosis, failure to complete the procedure, cardiovascular complications such as VT, stroke, arrhythmia, and . Informed consent previously obtained and reviewed.Nino Reeder MDGastroenterology and hepatology fellow, PGY-5Contact information available on AMCOM ssociated attestation - Dayan Haque MD - 12/22/2023 7:14 AM CDT I have evaluated the patient and discussed the history, examination findings and procedure plan with Dr. Reeder. I agree with the pre-op note below.Cindy Lagos ProfessorGastroenterology & Pwhxhpzqbg88893-3[place]remnek and physical bwcgES2691968Nk-Ubtte, Yamam1.2.840.298158.1.13.104.2.7.2. 850571Iw-BjizyIuygeXK2331-21-08B72: 14:32History and physical noteTXT1.2.840.718914.1.13.104.2.7. 2.083873|[id number] for patient zrxv01423-1Nqithnu and physical noteLNNARRATIVEFormatted C-CDA narrative fklcLG-EZISKQQXTSJFTHULTE-ANWKCBTJJ EROLOGYUT24 Taylor StreetQa[id number] 9ONXWWCLKWGCKYNGSIAHAFW7882-18-46Z4 7:14:321.2.840.471693.1.72.3.15|1.2 .840.492931.1.13.104.2.7.2.727879_2 [id number] IM-GASTROENTEROLO [facility] Notes Date/Time Note Provider Source 2023-12-13 09:30:00 7173-34-84P51:30:00 Images from the original note were not included.Venipuncture collection performed by clean technique on the right anticubitus. Total of 1 attempts were made. Slight pressure and a bandage/dressing were applied to the site(s). The patient experienced no complications. The following specimens were processed according to instructions and sent to [facility] laboratories per lab order on 12/13/2023:LT BLUESST 2REDLAV 1PPTDK GREEN (LiHep)DK GREEN (SodH)GRAYDK BLUE (K2)DK BLUE (S)ACDBlood CultureNIPT/NTD 97053-5Ihbkd BlxjNA2881-60-83R20:01:52Nurse NoteTXT1.2.840.561305.1.13.104.2.7. 2.404060|[id number] for patient brgm74817-5Ppssg NoteLNNARRATIVEFormatted C-CDA narrative text[id number] 6YSZFKSQQHSFNZPZESXNULF3201-62-30R9 0:01:521.2.840.655372.1.72.3.15|1.2 .840.364757.1.13.104.2.7.2.727879_2 [id number] [facility] 2023-12-11 16:25:29 3118-75-40M40:25:29 Patient contacted for pre op phone call. Patient given procedural prep instructions, NPO status for procedure, medication instructions.Patient verbalized understanding of instructions. Discussed with patient they will need a responsible adult, 18 years old or older, to provide transportation on the day of procedure. Patient also informed that they will be contacted the day before their procedure with arrival time.Pre op call complete. 23870-0Elvtb LudtQT6606-11-40F51:26:46Nurse NoteTXT1.2.840.352355.1.13.104.2.7. 2.234201|[id number] for patient uvqf94680-3Sxeyl NoteLNNARRATIVEFormatted C-CDA narrative [id number] Chacko RN[address] Op[id number] 0SKTVCHZCIQNIZQHEMBVIPT1320-62-01D6 6:26:461.2.840.773585.1.72.3.15|1.2 .840.151443.1.13.104.2.7.2.727879_2 [id number] Piter Mandel RN [facility] 2023-12-11 16:23:58 7354-25-23P69:23:58 Your is scheduled colonoscopy on @ [facility] Endoscopy. I have included the instructions for your procedure below.[facility] [address] [place], [place] [id number] for Colonoscopy preparation with GolytelySplit DoseTo prepare for the examination you will need to completely clean out your bowels. Please follow the instructions carefully.You will need an adult (18+)to drive you home on the day of the test. Your trailer driver must be present at time of check in for your procedure.You will need to buy:Golytely - prescription sent to your pharmacyFour (4) Dulcolax tablets (Laxatives)- no prescription neededOne week before the exam:Do not take any Coumadin, Plavix, Iron, Nuts or PopcornAnti-CoagulationIf taking Coumadin, Plavix, Eliquis, Xarelto or any other anit-coagulation medication, please discuss with your Business Management Professor to determine when to stop taking prior to your procedure. Your Business Management Professor may need to discuss this with your Mineral Industry Teacher.The day before the exam:Drink only clear liquids for breakfast, lunch and dinner. NOTHING RED Clear liquids include: chicken/beef broth, jello, fruit juices, coffee, tea, Coke, Dr. Peraza, Sprite, Gingerale, Gatorade, Powerade and popsicles.No solid food, milk or cream products.At 2:00 p.m. take two (2) Dulcolax TabletsAt 2:00 p.m. begin drinking Golytely. You may add Pedro, Crystal Light or any other flavoring (as long it is not red). You will need to drink half of the gallon. Drink one glass every 15-30 minutes.At 6:00 p.m. take two (2) Dulcolax TabletsContinue to drink clear liquids until bedtime.Day of the exam:At 4:00 a.m., please drink the remaining Golytely. Drink one glass every 15 minutes. When completed, nothing else to drink.NO CHEWING GUM OR HARD CANDYDo not eat anything on the morning of the testYou may take your medications with a sip of waterEndoscopy will call you day before your procedure to let you know what time to arrive.Please note: You may not travel home alone in a taxi or by bus.Please call [phone] with questions or if you need to cancel/reschedule.Thank you, 79050-7Zmfdt JaclXV5604-77-25W23:25:25Nurse NoteTXT1.2.840.786164.1.13.104.2.7. 2.444936|[id number] for patient ankb25292-5Xkrqs NoteLNNARRATIVEFormatted C-CDA narrative [address] Cy[id number] 3KNUUUVJPKAMHZQFBUXEVDD5023-69-73F3 6:25:251.2.840.076820.1.72.3.15|1.2 .840.174413.1.13.104.2.7.2.727879_2 [id number] [facility] 2023-11-28 15:52:30 1851-99-66G20:52:30 Images from the original note were not included. 10019-5Swdmkcmgg encounter EctwPQ2457-13-98C53:54:07Telephone encounter NoteTXT1.2.840.804531.1.13.104.2.7. 2.273927|[id number] for patient yrhc14487-9SxryHDDXBAPQXFLBkdabxbxz C-CDA narrative [address] Nb[id number] 9QMUDZYZKWHRQZBOGDWCXPN5840-57-65X8 5:54:071.2.840.522299.1.72.3.15|1.2 .840.595290.1.13.104.2.7.2.727879_2 [id number] [facility] 2023-10-24 10:14:01 5212-53-69N93:14:01 I spoke with the lab, the order for fecal calprotectin had to be cancelled for some reason and then the order got added back to another test on the same date, 10/12/23. Lab was calling to let us know this. No further action is needed at this time. 43009-7Hdpijjfiw encounter SadvTO5490-17-63A10:16:50Telephone encounter NoteTXT1.2.840.198053.1.13.104.2.7. 2.162262|6958978070UZFkrjivyad for patient fkzl34795-8BvgcPBVMRRYALMJWqbxzygfx C-CDA narrative [id number] M Evans RNUT[address] [id number] 0PSSAWALUMUUQYCLULXQMNF7138-20-05Z3 0:16:501.2.840.481033.1.72.3.15|1.2 .840.166757.1.13.104.2.7.2.727879_2 [id number] Mary Teixeira RN [facility] 2023-10-24 09:59:54 3880-40-64P70:59:54 Returned call to [employer], spoke with ReachTaxAlex Vincent will be in the office at 2pm today. morgue technician will give him the message to call me back at [phone]. 57072-7Esnfgehir encounter PnupAT3623-63-50X29:06:28Telephone encounter NoteTXT1.2.840.245386.1.13.104.2.7. 2.900383|3208252451DEWxgghrpyx for patient heam63498-0IijrJOLYHBUWBTFSawohnxtd C-CDA narrative text[id number] 0PJJDZXHTEUGDVXUAKLMNUL3151-53-19Z5 0:06:281.2.840.090668.1.72.3.15|1.2 .840.883073.1.13.104.2.7.2.727879_2 [id number] [facility] 2023-10-16 15:01:36 7577-25-35D41:01:36 Etuk with [facility] is calling to speak to the doctor about orders.[phone] signed by Wanda Toney at 10/16/2023 3:04 PM XFZ08721-8Dbeeusgky encounter EileTO3096-74-56D86:04:19Telephone encounter NoteTXT1.2.840.399549.1.13.104.2.7. 2.973580|5728343260CQArzpoyrpu for patient dzno22153-9GvdvDURLKFQBDMWKdrakebri C-CDA narrative [id number] J Boudreau16 [id number] 9BDRSCPCPRHOKYVCFKXEDTG9879-65-18Y6 5:04:191.2.840.204007.1.72.3.15|1.2 .840.590725.1.13.104.2.7.2.727879_1 [id number] Wanda Toney [facility] 2023-10-13 08:00:00 2027-05-10X09:00:00 Patient presented with specimen for drop-off and was identified by and name. Collection information/ total volume were documented accordingly. The following specimens were sent to [facility] laboratories per lab order on 10/13/2023:24 hour urineRandom urineStool 4SwabOther 51421-7Rlbtp TmsvTF7920-10-51D50:04:41Nurse NoteTXT1.2.840.717998.1.13.104.2.7. 2.094753|1307120441IQPtgtrrgwn for patient lzzx23889-9Ufgjc NoteLNNARRATIVEFormatted C-CDA narrative [id number] S [address] AtpmWqycjormlCebwybsixQAMZ241397970 6RIHLGGOZEDKOTEEQBMSLVI6650-62-51Q9 8:04:411.2.840.852825.1.72.3.15|1.2 .840.269520.1.13.104.2.7.2.727879_1 [id number] Jeanette London [facility] 2023-10-09 09:55:45 7477-49-38C21:55:45 Images from the original note were not included.Last Refilled:Name from pharmacy: BUSPIRONE HCL 10 MG TABLETWill file in chart as: BUSPIRONE 10 mg tabletSig: TAKE 1 TABLET BY MOUTH IN THE MORNING AND IN THE EVENINGDisp: 180 tablet Refills: 1Start: 10/09/2023lass: eRXFor: Anxiety and depressionLast ordered: 4 weeks ago (09/10/2023) by Davy Blancas refill: 09/10/2023Rx #: [id number] comment: REQUEST FOR 90 DAYS PRESCRIPTION. DX Code Needed.Provider Review Required Cekbac7610/09/2023 09:30 AMProtocol Details This refill cannot be delegatedValid encounter within last 12 monthsThis request has changes from the previous prescription.To be filled at: [facility]/pharmacy #[id number] - [place], [place] - [address] [facility] [address] WAY STREETNotes: Requesting a 90 day supplyRecent VisitsDate Type Provider Dept05/16/23 Office Visit Jamal Holcomb FNP [facility]04/04/23 Office Visit Jamal Holcomb FNP [facility]01/28/23 Office Visit Jamal Holcomb FNP [facility]12/27/22 Office Visit Jamal Holcomb FNP [facility]02/10/23 Office Visit Jamal Holcomb FNP [facility] MedShowing recent visits within past 540 days with a meds authorizing provider and meeting all other requirementsFuture AppointmentsDate Type Provider Dept11/17/23 Appointment Jamal Holcomb FNP [facility] MedShowing future appointments within next 150 days with a meds authorizing provider and meeting all other requirements 65361-4Alpquwizq encounter KzsfDN2367-74-36Z02:56:13Telephone encounter NoteTXT1.2.840.290889.1.13.104.2.7. 2.728263|1809145429GMGjazuocvi for patient nbgc64475-6QzucVYRRBOGMVARZimaickjm C-CDA narrative [id number] 5MIHAILFFHPHHYSUZSALWMC8109-71-96L8 9:56:131.2.840.804301.1.72.3.15|1.2 .840.416560.1.13.104.2.7.2.727879_1 [id number] [facility] 2023-10-07 09:00:00 9163-04-45Y25:00:00Addended by: LIZETTE GARCÍA on: 10/07/2023 10:14 AMModules accepted: Orders 37349-6Bwesdasw XdliqmpdNF3583-45-19Q95:14:45Addend um DocumentTXT1.2.840.115480.1.13.104. 2.7.2.140174|[id number] for patient monf58208-8KxyhXTDKTWGCVIIChmixursg C-CDA narrative [id number] 8FLOTUBFCZMSWWTSTQFBDUZ0179-18-79F3 0:14:451.2.840.653454.1.72.3.15|1.2 .840.739567.1.13.104.2.7.2.727879_1 [id number] [facility] 2023-08-19 14:30:00 6052-55-22I35:30:00 CRP mildly elevated.Patient informed via Exact[employer]at. 58561-3Rkbldpxq dexmNK0751-03-15L84:56:38Progress noteTXT1.2.840.511215.1.13.104.2.7. 2.872030|2400582836IIKcclkdkod for patient nray29313-5UydaCKTKZVALBPJTtdqragbq C-CDA narrative ensembli[id number] 1LVUVOLXMZFNUUYEEXNASIP9006-71-20Z1 1:56:381.2.840.279772.1.72.3.15|1.2 .840.779301.1.13.104.2.7.2.727879_1 [id number] [facility] 2023-08-19 14:30:00 1322-24-44G14:30:00 Celiac screen is negative.Patient informed via ExactFlat. 74958-5Wmqdekwl xmzvAP0229-42-69X74:39:52Progress noteTXT1.2.840.139306.1.13.104.2.7. 2.932137|8640454961BDGksgohvct for patient iocg69194-4RyevILVJBDCRXLGDqeexeygq C-CDA narrative ensembli[id number] 0WIPQIVXBAXUMVLNZVPYPKO5516-46-20F1 9:39:521.2.840.733462.1.72.3.15|1.2 .840.075144.1.13.104.2.7.2.727879_1 [id number] [facility] 2023-08-19 14:30:00 9872-02-93H73:30:00 Negative Fecal pathogen PCR. 79457-5Znfkeiym bznoLF4877-15-55J86:22:06Progress noteTXT1.2.840.548614.1.13.104.2.7. 2.023748|8854450293IPXiklcojvi for patient brsy74484-5BatlWMDMMBWVZOAIcfcugwqo C-CDA narrative ensembli[id number] 6DEBHDGAXXGCIEEMMAFTHEL4170-55-97K7 6:22:061.2.840.361858.1.72.3.15|1.2 .840.203288.1.13.104.2.7.2.727879_1 [id number] [facility] 2023-08-19 14:30:00 2887-71-02C80:30:00 Negative Giardia and Cryptosporidium. 46800-6Knakzzoo junvTM5787-84-32Y37:48:08Progress noteTXT1.2.840.558330.1.13.104.2.7. 2.999431|8260110971VYPqjdwplvh for patient hqqa34558-3OahpVDPRBFNFSWWOvufbnldm C-CDA narrative ensembli[address]TXTX[address] 8PPDTTIATMBWBSMSQPMTATX8695-61-46C6 9:48:081.2.840.595466.1.72.3.15|1.2 .840.443907.1.13.104.2.7.2.727879_1 [id number] [facility] 2023-08-19 14:30:00 1648-30-08L57:30:00Addended by: MARY BLACKBURN on: 10/15/2023 08:19 AMModules accepted: Orders 33519-6Pkfxpepu KwgycmaiLH7712-83-54O70:19:11Addend um DocumentTXT1.2.840.979490.1.13.104. 2.7.2.665169|7358916044MGCmvudfkpg for patient pbaq42796-9DztrBBDCUCPKFLLCfwifyymt C-CDA narrative bfph336415032Iiusxbds [id number] 8GVDEALBRAJOOTSNBFFUQXC8432-45-12Y7 8:19:111.2.840.999159.1.72.3.15|1.2 .840.085312.1.13.104.2.7.2.727879_1 [id number] Mary Blackburn [facility] 2023-08-19 14:30:00 9776-90-57D67:30:00 Fecal calprotectin normal. 40521-9Qqwuffxc reyxGH2278-86-28N92:59:02Progress noteTXT1.2.840.770457.1.13.104.2.7. 2.660231|4924916080BCUamzjvbkk for patient kjws83435-1XlziSHCPVLJQVEQXiwxzzerc C-CDA narrative text[id number] 9RREDMZYGFYXTCCIEAWCLNQ3747-99-25T4 9:59:021.2.840.930505.1.72.3.15|1.2 .840.763432.1.13.104.2.7.2.727879_1 [id number] [facility] 2023-08-19 14:30:00 9735-26-73O05:30:00 Negative C.Diff. 89134-1Aziksmor ywvwJI8841-37-79P56:13:05Progress noteTXT1.2.840.574807.1.13.104.2.7. 2.032461|0913530918KRYvfjxwrqx for patient htxq10864-9UnstGDWWISNGYASNdmngtlbp C-CDA narrative textUT[address] EnytJughgeeuuBwoxislwrVGFQ727698406 1UKOVXMOWNEKPHJMIFSSTCX2028-52-55Y5 6:13:051.2.840.033773.1.72.3.15|1.2 .840.245592.1.13.104.2.7.2.727879_1 [id number] [facility] 2023-05-22 08:52:44 3187-03-43Z08:52:44 Images from the original note were not included.Requested Renewals busPIRone 10 mg tablet Sig: Take 1 tablet by mouth in the morning and 1 tablet in the evening. Disp: 90 tablet Refills: 0 Start: 05/22/2023 Class: eRX For: Anxiety and depression Last ordered: 1 month ago (04/19/2023) by CAMILO Blancas Provider Review Required Failed 05/22/2023 08:50 AM Protocol Details This refill cannot be delegated Valid encounter within last 12 months To be filled at: [facility]/pharmacy #[id number] - [place], [place] - [facility] [address] Recent VisitsDate Type Provider Dept 05/16/23 Office Visit Jamal Holcomb, SHIP UNLOADER [facility] 04/04/23 Office Visit Jamal Holcomb, SHIP UNLOADER [facility] 01/28/23 Office Visit Jamal Holcomb, SHIP UNLOADER [facility] 12/27/22 Office Visit Jamal Holcomb, SHIP UNLOADER [facility] 11/15/22 Office Visit Jamal Holcomb, SHIP UNLOADER [facility] Showing recent visits within past 540 days with a meds authorizing provider and meeting all other requirementsFuture AppointmentsNo visits were found meeting these conditions.Showing future appointments within next 150 days with a meds authorizing provider and meeting all other requirements 09767-8Eyykgordo encounter MzngTY5159-75-03V52:52:53Telephone encounter NoteTXT1.2.840.292817.1.13.104.2.7. 2.625318|2178921475QDUextilftu for patient rhnk00828-1HcfbFS169083796Krrmihp M Fisher [address] RlojQynfidpzvUotvrtfhzYDKP518554923 7EOXOBZILVOBZKJFVLCYSEW6552-57-34F7 8:52:531.2.840.690542.1.72.3.15|1.2 .840.344934.1.13.104.2.7.2.727879_1 [id number] Zunilda Herron [facility] 2023-05-22 08:49:49 4021-38-05L67:49:49 busPIRone 10 mg tablet 58360-9Nccielmiz encounter JqesVL9535-06-98N47:50:32Telephone encounter NoteTXT1.2.840.866204.1.13.104.2.7. 2.560504|1738898620FHKomzespio for patient jwbp86363-1PgzvGLIBYHJDHB[address]vdGalvestonGalvestonTXTX[address] 5TRWXZUUXCZXOSEFEUWCJMR2919-83-03R7 8:50:321.2.840.937071.1.72.3.15|1.2 .840.218133.1.13.104.2.7.2.727879_1 [id number] [facility] 2023-05-21 14:42:42 3050-65-50E42:42:42 propranoloL 10 mg tablet 18946-1Agrycpfoy encounter WaqeTV7949-39-73A16:43:33Telephone encounter NoteTXT1.2.840.409806.1.13.104.2.7. 2.370709|8845820769CXKqiytiufu for patient zfzg59382-2UkyaGHXRFXQPFF[address]vdGalvestonGalvestonTXTX[address] 0RWDCEFQAZBZGGRSJPHVNIH4365-62-90N5 4:43:331.2.840.338246.1.72.3.15|1.2 .840.573751.1.13.104.2.7.2.727879_1 [id number] [facility] 2023-05-16 16:30:00 0876-58-88I75:30:00 Images from the original note were not included.Venipuncture collection performed by clean technique on the left anticubitus. Total of 1 attempts were made. Slight pressure and a bandage/dressing were applied to the site(s). The patient experienced no complications. The following specimens were processed according to instructions and sent to [facility] laboratories per lab order on TODAY: LT BLUE SST 2-RST RED LAV 1 PPT DK GREEN (LiHep) DK GREEN (SodH) CORREA DK BLUE (K2) DK BLUE (S) ACD Blood Culture NIPT/NTD 15066-1Nkmio EvwuXG0505-79-96X95:26:58Nurse NoteTXT1.2.840.377100.1.13.104.2.7. 2.423927|9783210493RKAacxloqcc for patient qzgf26601-4Ysghp NoteLNUT[address] LhzhTxrhbcgnpZyptboctlYVYF118226732 9SJZTOYFTKHRWUEWIIQIYEG6847-61-30S1 6:26:581.2.840.479688.1.72.3.15|1.2 .840.681356.1.13.104.2.7.2.727879_1 [id number] [facility]"
--- NOTE | 2024-03-07 19:58 | RAD REPORT ---
EXAM DESCRIPTION: CT - Head Brain Wo Cont - 03/07/2024 7:32 pm CLINICAL HISTORY: Seizure COMPARISON: none TECHNIQUE: Computed axial tomography of the head was obtained. IV contrast was not requested. All CT scans are performed using dose optimization technique as appropriate and may include automated exposure control or mA/KV adjustment according to patient size. FINDINGS: An intracranial bleed is not seen The ventricles are normal in caliber No significant hypodense areas within the brain visualized No extra-axial fluid collection is noted. Fluid within the sinuses/ mastoids is not seen IMPRESSION: No acute intracranial abnormality is seen If patient's symptoms persist MRI of the brain would be recommended
[2024-03-07 20:04] LABS: Absolute Basophils 0.1 K/uL (0-0.5); Absolute Eosinophils 0.1 K/uL (0-0.5); Absolute Lymphocytes (CBC) 1.7 K/uL (0.7-4.9); Absolute Monocytes 0.6 K/uL (0.1-1.3); Absolute Neutrophil 6.2 K/uL (1.8-8.0); Basophils % 0.6 % (0-1.3); Eosinophils % 0.7 % (0-4.4); Hematocrit 41.6 % (36.0-45.0); Hemoglobin 13.8 g/dL (12.0-15.0); Lymphocytes % 19.8 % (15.3-44.8); MCH 29.3 pg (27.0-35.0); MCHC 33.3 g/dL (32.0-36.0); MCV 88.1 fL (80-100); MPV 9.9 fL (7.6-11.3); Monocytes % 6.9 % (3.3-12.3); Nucleated Red Blood Cells % 0.3 % (0-0); Platelets 209 thou/uL (152-406); RBC Red Blood Cell Count 4.72 M/uL (3.86-4.86); Red Cell Distribution Width 14.2 % (12.1-15.2)
[2024-03-07 21:02] LABS: ALT/SGPT 98 U/L (13-56); AST/SGOT 58 U/L (15-37); Albumin 3.7 g/dL (3.4-5.0); Alkaline Phosphatase 91 U/L (45-117); Anion Gap 7.6 mEq/L (5.0-15.0); BUN Blood Urea Nitrogen 8 mg/dL (7-18); Bicarbonate 24 mEq/L (21-32); Bilirubin Total 0.4 mg/dL (0.2-1.0); Creatine Phosphokinase 86 U/L (26-192); Globulin 3.6 g/dL (2.3-3.5); Glomerular Filtration Rate 101 ml/min (=/>90); Glucose Level 96 mg/dL (74-106); Magnesium 2.5 mg/dL (1.6-2.4); Potassium 3.6 mEq/L (3.5-5.1); Protein, Total 7.3 g/dL (6.4-8.2); Sodium Level 138 mEq/L (136-145)
[2024-03-07 21:04] LABS: Bilirubin Direct < 0.2 mg/dL (0-0.2); Bilirubin Indirect, Calculated 0.2 mg/dL (0.2-0.8)
[2024-03-07 21:08] LABS: Troponin High Sensitivity 117.1 pg/mL (<58.9)
--- NOTE | 2024-03-07 21:47 | EDPHYS ---
Physician Documentation [facility] Name: Deysi Villanueva Age: 18 yrs Sex: Female : 2005 Arrival Date: 03/07/2024 Time: 18:14 Bed 2 Private MD: ED Physician Jonah Escobar HPI: 03/07 19:01 This 18 yrs old Female presents to ER via EMS with complaints of seizure. rt 19:01 Patient presents to the ED with seizure-like activity that occurred few hours after rt smoking delta 9. The patient does not recall the events. Was found by the sister. Unclear how long the episode lasted for. She is back to her baseline from neurologic standpoint. Reports mild nausea, headache. Denies other acute complaints at this time, symptoms are moderate in severity, no other aggravating or alleviating factors.. 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 - Infectious Disease History:: Denies. - Social history:: Smoking status: Patient denies any tobacco usage or history of. - Family history:: not pertinent. ROS: 19:01 Constitutional: Negative for fever, chills, and weight loss, Cardiovascular: Negative rt for chest pain, palpitations, and edema, Respiratory: Negative for shortness of breath, cough, wheezing, and pleuritic chest pain, MS/Extremity: Negative for injury and deformity, Skin: Negative for injury, rash, and discoloration, Psych: Negative for depression, anxiety, suicide ideation, homicidal ideation, and hallucinations, 19:01 Abdomen/GI: Positive for nausea, Negative for abdominal pain, 19:01 Neuro: Positive for headache, seizure activity, Exam: 19:01 Constitutional: This is a well developed, well nourished patient who is awake, alert, rt and in no acute distress. Head/Face: Normocephalic, atraumatic. Chest/axilla: Normal chest wall appearance and motion. Nontender with no deformity. No lesions are appreciated. Cardiovascular: Regular rate and rhythm with a normal S1 and S2. No gallops, murmurs, or rubs. Normal PMI, no JVD. No pulse deficits. Respiratory: Lungs have equal breath sounds bilaterally, clear to auscultation and percussion. No rales, rhonchi or wheezes noted. No increased work of breathing, no retractions or nasal flaring. Abdomen/GI: Soft, non-tender, with normal bowel sounds. No distension or tympany. No guarding or rebound. No evidence of tenderness throughout. Skin: Warm, dry with normal turgor. Normal color with no rashes, no lesions, and no evidence of cellulitis. MS/ Extremity: Pulses equal, no cyanosis. Neurovascular intact. Full, normal range of motion. Neuro: Awake and alert, GCS 15, oriented to person, place, time, and situation. Cranial nerves II-XII grossly intact. Motor strength 5/5 in all extremities. Sensory grossly intact. Cerebellar exam normal. Normal gait. Psych: Awake, alert, with orientation to person, place and time. Behavior, mood, and affect are within normal limits. 19:59 ECG was reviewed by the Attending Physician. rt Vital Signs: 18:29 BP 119 / 58; Pulse 108; Resp 18; Temp 97.8(O); Pulse Ox 99% ; rs5 19:27 BP 110 / 51; Pulse 75; Resp 17; Pulse Ox 95% on R/A; me1 20:00 BP 104 / 63; Pulse 47; Resp 15; Pulse Ox 98% on R/A; me1 21:00 BP 101 / 59; Pulse 48; Resp 18; Pulse Ox 97% on R/A; km8 22:00 BP 103 / 52; Pulse 50; Resp 16; Pulse Ox 98% on R/A; me1 23:00 BP 110 / 56; Pulse 50; Resp 16; Pulse Ox 98% on R/A; me1 23:17 BP 124 / 54; Pulse 52; Resp 16; Pulse Ox 96% ; me1 Shelby Coma Score: 19:53 Eye Response: spontaneous(4). Motor Response: obeys commands(6). Verbal Response: km8 oriented(5). Total: 15. MDM: 18:55 Patient medically screened. rt 21:46 Differential Diagnosis Seizure, dysrhythmia, electrolyte disturbance. Data reviewed: rt vital signs, nurses notes, lab test result(s), EKG, radiologic studies. Consideration of Admission/Observation Patient was admitted/placed on observation. Management of patient was discussed with the following: Hospitalist: Agrees to admit. Independent interpretation of the following test(s) in the Emergency Department CT Scan: My interpretation is No intracranial hemorrhage seen on interpretation of CT scan images. Care significantly affected by the following Social Determinants of Health: Misuse of alcohol and/or drugs. Counseling: I had a detailed discussion with the patient and/or guardian regarding the historical points, exam findings, and any diagnostic results supporting the discharge/admit diagnosis, lab results, radiology results, the need for further work-up and treatment in the hospital. Response to treatment: the patient's symptoms have markedly improved after treatment. 03/07 18:59 Order name: Basic Metabolic Panel; Complete Time: 21:17 rt 03/07 18:59 Order name: CBC with Diff; Complete Time: 20:39 rt 03/07 18:59 Order name: LFT's; Complete Time: 21:17 rt 03/07 18:59 Order name: Magnesium; Complete Time: 21:17 rt 03/07 18:59 Order name: Troponin HS; Complete Time: 21:17 rt 03/07 18:59 Order name: CPK; Complete Time: 21:17 rt 03/07 18:59 Order name: Test, Serum; Complete Time: 20:39 rt 03/07 22:53 Order name: Urinalysis w/ reflexes EDMS / 22:53 Order name: CBC with Automated Diff EDMS 03/07 22:53 Order name: CBC with Automated Diff EDMS 03/07 22:53 Order name: Comprehensive Metabolic Panel EDMS 03/07 22:53 Order name: Comprehensive Metabolic Panel EDMS / 22:53 Order name: Troponin High Sensitivity EDMS 03/07 22:53 Order name: Troponin High Sensitivity EDMS / 22:53 Order name: Troponin High Sensitivity EDMS / 22:53 Order name: Troponin High Sensitivity EDMS / 18:59 Order name: CT Head Brain wo Cont; Complete Time: 19:59 rt 03/07 18:59 Order name: Cardiac monitoring; Complete Time: 19:54 rt 03/07 18:59 Order name: EKG - Nurse/Tech; Complete Time: 19:54 rt 03/07 18:59 Order name: IV Saline Lock; Complete Time: 19:54 rt 03/07 18:59 Order name: Labs collected and sent; Complete Time: 19:54 rt 03/07 18:59 Order name: O2 Per Protocol; Complete Time: :54 rt 03/07 18:59 Order name: O2 Sat Monitoring; Complete Time: 19:54 rt EC:59 Rate is 56 beats/min. Rhythm is regular, Sinus bradycardia with No ectopy. QRS [place] is rt Normal. OR interval is normal. QRS interval is normal. QT interval is normal. No Q waves. T waves are Normal. No ST changes noted. Interpreted by me. Administered Medications: No medications were administered Disposition Summary: 03/07/24 21:46 Hospitalization Ordered Notes: Hospitalization Status: Observation rt Provider: Sidney Castellanos rt Location: Telemetry/MedSurg (observation) rt Condition: Stable rt Problem: new rt Symptoms: have improved rt Bed/Room Type: Standard rt Room Assignment: 408(03/07/24 22:59) cg Diagnosis - Unspecified convulsions rt - Elevated troponin rt Forms: - Medication Reconciliation Form rt - SBAR form rt - Leadership Thank You Letter rt Signatures: Dispatcher [employer] EDSivan Phoenix, OMARI RN cg Jonah Escobar MD MD rt John Wilson RN RN rs5 Corrections: (The following items were deleted from the chart) 19:00 18:59 BASIC METABOLIC PANEL+C.LAB.BRZ ordered. EDDC EDMS 19:00 18:59 CBC+H.LAB.BRZ ordered. EDDC EDDC 19:00 18:59 HEPATIC FUNCTION+C.LAB.BRZ ordered. EDDC EDDC 19:00 18:59 MAGNESIUM+C.LAB.BRZ ordered. EDDC EDMS 19:00 18:59 Troponin High Sensitivity+C.LAB.BRZ ordered. EDDC EDMS 19:00 18:59 CREATINE PHOSPHOKINASE+C.LAB.BRZ ordered. EDDC EDMS 19:00 18:59 TEST, SERUM+SC.LAB.BRZ ordered. EDDC EDMS 19:00 19:00 Head Brain Wo Cont+CT.RAD.BRZ ordered. EDDC EDMS 22:59 21:46 rt cg
--- NOTE | 2024-03-07 21:47 | ER ---
Nurse's Notes [facility] Name: Deysi Villanueva Age: 18 yrs Sex: Female : 2005 Arrival Date: 03/07/2024 Time: 18:14 Bed 2 Private MD: Diagnosis: Unspecified convulsions;Elevated troponin Presentation: 03/07 18:29 Chief complaint: EMS states: Mom toned out EMS for seizure like activity after patient rs5 smoked delta 9, no history of seizures. Coronavirus screen: At this time, the client does not indicate any symptoms associated with coronavirus-19. Ebola Screen: No symptoms or risks identified at this time. 18:29 Method Of Arrival: EMS: [place] [id number] 18:29 Initial Sepsis Screen: Does the patient meet any 2 criteria? HR > 90 bpm. Yes Does the rs5 patient have a suspected source of infection? No. Patient's initial sepsis screen is negative. Risk Assessment: Do you want to hurt yourself or someone else? Patient reports no desire to harm self or others. Onset of symptoms was March 07, 2024. 18:29 Acuity: ANKUSH 3 rs5 Triage Assessment: 18:33 General: Appears in no apparent distress. comfortable, Behavior is calm, cooperative. rs5 Pain: Denies pain. 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 - Infectious Disease History:: Denies. - Social history:: Smoking status: Patient denies any tobacco usage or history of. - Family history:: not pertinent. Screenin:34 [facility] ED Fall Risk Assessment (Adult) History of falling in the last 3 months, rs5 including since admission Yes- single mechanical fall (1 pt) Confusion or Disorientation No (0 pts) Intoxicated or Sedated No (0 pts) Impaired Gait No (0 pts) Mobility Assist Device Used No (0 pt) Altered Elimination No (0 pt) Score/Fall Risk Level 0 - 2 = Low Risk Oriented to surroundings, Maintained a safe environment. Abuse screen: Denies threats or abuse. Nutritional screening: No deficits noted. Tuberculosis screening: No symptoms or risk factors identified. Assessment: 19:53 General: Appears in no apparent distress. comfortable, Behavior is cooperative, km8 appropriate for age, anxious. Pain: Denies pain. Neuro: Level of Consciousness is awake, alert, obeys commands, Oriented to person, place, time, situation. Cardiovascular: Denies chest pain, shortness of breath, Patient's skin is warm and dry. Respiratory: Airway is patent Respiratory effort is even, unlabored, Respiratory pattern is regular, symmetrical. GI: No signs and/or symptoms were reported involving the gastrointestinal system. : No signs and/or symptoms were reported regarding the genitourinary system. EENT: No signs and/or symptoms were reported regarding the EENT system. Derm: Skin is intact, is healthy with good turgor, Skin is dry, Skin is pink, warm \T\ dry. normal, Skin temperature is warm. Musculoskeletal: No signs and/or symptoms reported regarding the musculoskeletal system. Range of motion: intact in all extremities. 21:00 Reassessment: Patient appears in no apparent distress at this time. No changes from km8 previously documented assessment. Patient and/or family updated on plan of care and expected duration. Pain level reassessed. Patient is alert, oriented x 3, equal unlabored respirations, skin warm/dry/pink. 22:00 Reassessment: Patient appears in no apparent distress at this time. No changes from km8 previously documented assessment. Patient and/or family updated on plan of care and expected duration. Pain level reassessed. Patient is alert, oriented x 3, equal unlabored respirations, skin warm/dry/pink. 23:00 Reassessment: Patient appears in no apparent distress at this time. No changes from km8 previously documented assessment. Patient and/or family updated on plan of care and expected duration. Pain level reassessed. Patient is alert, oriented x 3, equal unlabored respirations, skin warm/dry/pink. 23:27 Reassessment: report called to OMARI Majano. km8 Vital Signs: 18:29 BP 119 / 58; Pulse 108; Resp 18; Temp 97.8(O); Pulse Ox 99% ; rs5 19:27 BP 110 / 51; Pulse 75; Resp 17; Pulse Ox 95% on R/A; me1 20:00 BP 104 / 63; Pulse 47; Resp 15; Pulse Ox 98% on R/A; me1 21:00 BP 101 / 59; Pulse 48; Resp 18; Pulse Ox 97% on R/A; km8 22:00 BP 103 / 52; Pulse 50; Resp 16; Pulse Ox 98% on R/A; me1 23:00 BP 110 / 56; Pulse 50; Resp 16; Pulse Ox 98% on R/A; me1 23:17 BP 124 / 54; Pulse 52; Resp 16; Pulse Ox 96% ; me1 Christoph Coma Score: 19:53 Eye Response: spontaneous(4). Motor Response: obeys commands(6). Verbal Response: km8 oriented(5). Total: 15. ED Course: 18:27 Patient arrived in ED. eb 18:29 John Wilson, RN is Primary Nurse. rs5 18:33 Triage completed. rs5 18:34 Patient has correct armband on for positive identification. Placed in gown. Bed in low rs5 position. Call light in reach. Side rails up X2. 18:34 No provider procedures requiring assistance completed. rs5 18:55 Jonah Escobar MD is Attending Physician. rt 19:33 CT Head Brain wo Cont In Process Unspecified. EDMS 19:53 Primary Nurse role handed off by John Wilson RN km8 19:53 Gerda Chanel, OMARI is Primary Nurse. km8 19:53 Provided Education on: call light use. gambling monitor on. Pulse ox on. NIBP on. Warm km8 blanket given. 19:53 Initial lab(s) drawn, by vt, sent to lab. EKG done, by ED staff, reviewed by Jonah Escobar MD. Inserted saline lock: 20 gauge in left antecubital area, using aseptic technique. Blood collected. 19:54 Test, Serum Sent. km8 19:54 CPK Sent. km8 19:54 Basic Metabolic Panel Sent. km8 19:54 CBC with Diff Sent. km8 19:54 LFT's Sent. km8 19:54 Magnesium Sent. km8 19:54 Troponin HS Sent. km8 19:55 Arm band placed on right wrist. km8 21:46 Sidney Castellanos MD is Hospitalizing Provider. rt 23:24 Patient admitted, IV remains in place. km8 Administered Medications: No medications were administered Medication: 18:34 VIS not applicable for this client. rs5 Outcome: 21:46 Decision to Hospitalize by Provider. rt 23:43 Admitted to Med/surg accompanied by nurse, via wheelchair, room 408, with chart, Report km8 called to OMARI Majano 23:43 Condition: stable 23:43 Instructed on the need for admit, Demonstrated understanding of instructions, 23:44 Patient left the ED. km8 Signatures: Dispatcher [employer] EDMO Ewa Cancino Ryan, MD MD rt John Wilson, RN RN rs5 Penny Mckoy RN RN me1 Gerda Chanel RN RN km8 Corrections: (The following items were deleted from the chart) 21:26 19:53 General: Appears in no apparent distress. comfortable, Behavior is calm, km8 cooperative, appropriate for age, km8 23:27 23:27 Admitted to 8 km8
--- NOTE | 2024-03-07 22:21 | P.HP ---
Certification for Inpatient Patient admitted to: Observation With expected LOS: <2 Midnights Practitioner: I am a practitioner with admitting privileges, knowledge of patient current condition, hospital course, and medical plan of care. Services: Services provided to patient in accordance with Admission requirements found in Title 42 Section 412.3 of the Code of Federal Regulations Patient History Date of Service: 03/07/24 Reason for admission: Seizure episode History of Present Illness: 18 yrs old Female with past medical history of anxiety, depression, presented to ER with complaints of seizure episode . No previous history of seizure disorder Patient presents to the ED with seizure-like activity that occurred few hours after smoking delta 9. The patient does not recall the events. Was found by the sister. Unclear how long the episode lasted for. She is back to her baseline from neurologic standpoint. Reports mild nausea, headache. Denies other acute c omplaints at this time, symptoms are moderate in severity, no other aggravating or alleviating factors.. Patient was assessed in the ER and was admitted for further management of seizure and also found to have elevated cardiac enzymes - Home medications list reviewed: Yes - Past Medical/Surgical History Past Medical History: Reviewed- Non-Contributory Past Surgical History: Reviewed- Non-Contributory - Family History Family History: Reviewed- Non-Contributory - Social History Smoking Status: Current some day smoker Review of Systems 10-point ROS is otherwise unremarkable Physical Examination - Vital Signs Temperature: 98.2 F Blood Pressure: 112/76 Pulse: 52 Respirations: 18 Pulse Ox (%): 94 - Physical Exam General: Alert, In no apparent distress, Obese HEENT: Atraumatic, Normocephalic Neck: Supple, 2+ carotid pulse no bruit Respiratory: Clear to auscultation bilaterally, Normal air movement Cardiovascular: Normal pulses, Regular rate/rhythm, Normal S1 S2 Capillary refill: <2 Seconds Gastrointestinal: Normal bowel sounds, W/out hepatosplenomegaly Musculoskeletal: No clubbing, No swelling Integumentary: No rashes, No significant lesion Neurological: Normal speech, Normal strength at 5/5 x4 extr, Sensation intact, Cranial nerves 3-12 intact, Normal reflexes 2+ Lymphatics: No axilla or inguinal lymphadenopathy - Studies Laboratory Data (last 24 hrs) 03/07/24 03/07/24 19:53 19:53 WBC 8.60 Hgb 13.8 Hct 41.6 Plt Count 209 Sodium 138 Potassium 3.6 BUN 8 Creatinine 0.85 Glucose 96 Magnesium 2.5 H Total Bilirubin 0.4 AST 58 H ALT 98 H Alkaline Phosphatase 91 Assessment and Plan - Problems (Diagnosis) (1) Seizure Current Visit: Yes Status: Acute Plan: Seizure episode Patient was vaping with delta 9 CT head negative for any acute changes No further episodes of seizure in the ER Ativan as needed NSTEMI possibly type II due seizure episode Will trend cardiac enzymes Will monitor telemetry EKG did not show any acute changes suggestive of ischemia Patient denies any chest pain Anxiety Continue home medications and titrate as needed Substance abuse Advised to stop substance abuse GI/DVT prophylaxis Discharge Plan: Home Plan to discharge in: 24 Hours - Advance Directives Does patient have a Living Will: No Does patient have a Durable POA for Healthcare: No Time Spent Managing Pts Care (In Minutes): 48
[2024-03-07] MEDS ORDERED: ACETAMINOPHEN 325 MG TABLET PO PRN (22:48)
[2024-03-07] MEDS ORDERED: ONDANSETRON 4 MG/2 ML VIAL IV PRN (22:48)
[2024-03-08 00:34] VITALS: BMI 38.9
[2024-03-08 01:08] VITALS: O2SAT 96
[2024-03-08 06:46] LABS: Absolute Eosinophils 0.1 K/uL (0-0.5); Absolute Lymphocytes (CBC) 3.3 K/uL (0.7-4.9); Absolute Monocytes 0.8 K/uL (0.1-1.3); Absolute Neutrophil 4.2 K/uL (1.8-8.0); Basophils % 0.5 % (0-1.3); Eosinophils % 1.3 % (0-4.4); Hematocrit 41.2 % (36.0-45.0); Hemoglobin 13.7 g/dL (12.0-15.0); Lymphocytes % 38.9 % (15.3-44.8); MCH 29.6 pg (27.0-35.0); MCHC 33.2 g/dL (32.0-36.0); MPV 10.5 fL (7.6-11.3); Monocytes % 9.3 % (3.3-12.3); Platelets 199 thou/uL (152-406); RBC Red Blood Cell Count 4.63 M/uL (3.86-4.86); Red Cell Distribution Width 14.5 % (12.1-15.2)
[2024-03-08 07:08] LABS: Albumin 3.7 g/dL (3.4-5.0); Albumin/Globulin Ratio 1.1 (1.1-1.8); Anion Gap 8.1 mEq/L (5.0-15.0); Bilirubin Total 0.5 mg/dL (0.2-1.0); Globulin 3.3 g/dL (2.3-3.5); Phosphorus 3.8 mg/dL (2.5-4.9); Potassium 3.1 mEq/L (3.5-5.1)
[2024-03-08] MEDS: POTASSIUM CL SA 10 MEQ TAB PO ONE (08:40)
[2024-03-08] MEDS: ENOXAPARIN 40 MG/0.4 ML SQ SCH (08:42)
[2024-03-08 09:13] LABS: Specific Gravity 1.018 (1.005-1.030); Urine Bilirubin NEGATIVE (Negative); Urine Blood Negative (Negative); Urine Clarity Extremely Turbid (Clear); Urine Color Yellow (Yellow); Urine Glucose NEGATIVE (Negative); Urine Ketones NEGATIVE (Negative); Urine Nitrite NEGATIVE (Negative); Urine Protein TRACE (Negative); Urine Urobilinogen Normal (Normal)
[2024-03-08] MEDS: LORazepam 2 MG/ML VIAL IV ONE (09:27)
[2024-03-08] MEDS ORDERED: PNEUMOCOCCAL VACCINE 0.5 ML IMVAC ONE ×2 (09:30→13:30)
[2024-03-08] MEDS: LORazepam 2 MG/ML VIAL ONE (09:41)
--- NOTE | 2024-03-08 09:57 | RAD REPORT ---
EXAM DESCRIPTION: RAD - Chest Single View - 03/08/2024 9:49 am CLINICAL HISTORY: seizure Chest pain. COMPARISON: CHEST PA AND LAT 2 VIEW dated 03/15/2008 FINDINGS: Portable technique limits examination quality. The lungs are underinflated resulting in vascular crowding. Small opacity in the left retrocardiac re gion could be an area of atelectasis or aspiration. The lungs are otherwise clear. The heart is maureen l in size.
[2024-03-08] MEDS ORDERED: D5.45NS W/KCL 40MEQ 40 MEQ/1,000 ML BAG IV SCH (10:00)
[2024-03-08] MEDS ORDERED: FOSPHENYTOIN PE 1,000 MG in NA CHLORIDE 0.9% 100 ML IV ONE (10:00)
[2024-03-08] MEDS ORDERED: LORazepam 2 MG/ML VIAL IV PRN (10:00)
[2024-03-08 10:11] LABS: Urine Microscopic Reflex YN ORDER UMIC
[2024-03-08 10:12] LABS: Urine Bacteria <20 /HPF (<20); Urine Culture Reflex Order NOT NEEDED
[2024-03-08] MEDS: levETIRAcetam 500 MG in NA CHLORIDE 0.9% 100 ML IV SCH (10:30)
[2024-03-08] MEDS: [UNRECOGNIZED DRUG - MIXTURE] IV SCH (10:38)
[2024-03-08 11:12] LABS: Barbiturates NEGATIVE (NEGATIVE); Benzodiazepines NEGATIVE (NEGATIVE); Cocaine NEGATIVE (NEGATIVE); METHAMPHETAM NEGATIVE (NEGATIVE); Methadone NEGATIVE (NEGATIVE); Opiates NEGATIVE (NEGATIVE); Phencyclidine NEGATIVE (NEGATIVE); THC Cannibis POSITIVE (NEGATIVE)
--- NOTE | 2024-03-08 11:22 | P.PN ---
Subjective Date of Service: 03/08/24 Chief Complaint: Seizure episode Pt developed seizure this am. Mom bedside Review of Systems Unremarkable (Prior to seizure this am) Physical Examination - Vital Signs Temperature: 96.7 F Blood Pressure: 117/54 Pulse: 47 Respirations: 16 Pulse Ox (%): 99 - Physical Exam General: Alert, In no apparent distress, Oriented x3 Neck: Supple Respiratory: Clear to auscultation bilaterally Cardiovascular: No edema, Regular rate/rhythm, Normal S1 S2 Gastrointestinal: Normal bowel sounds, Soft and benign Musculoskeletal: No clubbing Neurological: Normal gait, Normal speech, Normal strength at 5/5 x4 extr, Cranial nerves 3-12 intact - Studies Laboratory Data (last 24 hrs) 03/07/24 03/07/24 19:53 19:53 WBC 8.60 Hgb 13.8 Hct 41.6 Plt Count 209 Sodium 138 Potassium 3.6 BUN 8 Creatinine 0.85 Glucose 96 Magnesium 2.5 H Total Bilirubin 0.4 AST 58 H ALT 98 H Alkaline Phosphatase 91 Assessment And Plan - Current Problems (Diagnosis) (1) Seizure Current Visit: Yes Status: Acute Plan: PT deveolped seizures X2 , secondary to THC? Dw Zeferino Gannon. Ct of head neg (2) NSTEMI (non-ST elevated myocardial infarction) Current Visit: Yes Status: Acute Plan: Elvated troponis. EKG/ Echo/ Cardiolgy consult. Rate is 56 beats/min. Rhythm is regular, Sinus bradycardia with No ectopy. QRS [place] is rt Normal. [place] interval is normal. QRS interval is normal. QT interval is normal. No Q waves. T waves are Normal. No ST changes noted. Interpreted by me. Discharge Plan: Home Plan to discharge in: 48 Hours
[2024-03-08] MEDS: PROPRANOLOL HCL 10 MG TAB PO SCH (11:57)
[2024-03-08] MEDS: SERTRALINE HCL 100 MG TAB PO SCH (11:57)
[2024-03-08] MEDS: BUSPIRONE HCL 5 MG TABLET PO SCH (11:58)
[2024-03-08] MEDS: TOPIRAMATE 25 MG TAB PO SCH (12:00)
--- NOTE | 2024-03-08 12:03 | P.CNS ---
Date of Consult: 03/08/24 Chief Complaint: Seizure episode History of Present Illness: Patient with PMH of anxiety presented with seizure activity, denies any cardiac history, no chest pain, no palpitations, no SOB, no syncope. Allergies No Known Allergies Allergy (Unverified 03/07/24 23:52) Home Medications: Buspirone HCl [Buspar] 10 mg PO DAILY 03/08/24 Propranolol HCl 10 mg PO DAILY 03/08/24 Sertraline [Zoloft] 100 mg PO DAILY 03/08/24 Topiramate [Topamax] 50 mg PO DAILY 03/08/24 - Past Medical/Surgical History Diabetic: No -: Liver tumor -: HTN -: Depression - Social History Place of Residence: Home Review of Systems 10-point ROS is otherwise unremarkable Physical Examination Temp Pulse Resp BP Pulse Ox 99.0 F 47 L 18 90/50 L 97 03/08/24 11:50 03/08/24 11:22 03/08/24 11:50 03/08/24 11:50 03/08/24 11:50 General: Alert, In no apparent distress HEENT: Atraumatic, PERRLA, Mucous membr. moist/pink, EOMI, Sclerae nonicteric Neck: Supple, 2+ carotid pulse no bruit, No LAD, Without JVD or thyroid abnormality Respiratory: Clear to auscultation bilaterally, Normal air movement Cardiovascular: Regular rate/rhythm, Normal S1 S2 Gastrointestinal: Normal bowel sounds, No tenderness Musculoskeletal: No tenderness Integumentary: No rashes Neurological: Normal gait, Normal speech, Normal tone, Normal affect Lymphatics: No axilla or inguinal lymphadenopathy Laboratory Data (last 24 hrs) 03/07/24 03/07/24 19:53 19:53 WBC 8.60 Hgb 13.8 Hct 41.6 Plt Count 209 Sodium 138 Potassium 3.6 BUN 8 Creatinine 0.85 Glucose 96 Magnesium 2.5 H Total Bilirubin 0.4 AST 58 H ALT 98 H Alkaline Phosphatase 91 - Problems (1) NSTEMI (non-ST elevated myocardial infarction) Current Visit: Yes Status: Acute Plan: Patient denies having chest pain, troponin mild elevated but no significant delta, the troponin rise is secondary to seizure activity. get Echo, if normal then no further cardiac work up is needed.
--- NOTE | 2024-03-08 14:07 | EKG ---
Test Date: 2024-03-07 Test Time: 19:52:51 Ortho Nurse: JUNIOR MEASUREMENT RESULTS: Intervals: Rate: 56 OH: 160 QRSD: 102 QT: 414 QTc: 399 [place]: P: 15 OH: 160 QRS: 47 T: 47 INTERPRETIVE STATEMENTS: Sinus bradycardia Otherwise normal ECG No previous ECG available for comparison Electronically Signed On 03-08-24 14:04:48 CDT by Oscar Sarabia
[2024-03-09] MEDS: Ringers Lactate 1,000 ML IV SCH (01:07)
--- NOTE | 2024-03-09 06:52 | ECHO ---
HEIGHT: 5 ft 3 in WEIGHT: 220 lb 0 oz DATE OF STUDY: 03/08/[address]: Darian Gomez MD 2-DIMENSIONAL: YES M.MODE: YES DOPPLER: YES COLOR FLOW: YES TDS: PORTABLE: YES DEFINITY: BUBBLE STUDY: DIAGNOSIS: NON ST ELEVATION MYOCARDIAL INFARCTION CARDIAC HISTORY: CATHERIZATION: NO SURGERY: NO PROSTHETIC VALVE: NO PACEMAKER: NO MEASUREMENTS (cm) DIASTOLIC (NORMALS) SYSTOLIC (NORMALS) IVSd 1.1 (0.6-1.2) LA Diam 3.3 (1.9-4.0) LVEF 60-65% LVIDd 4.0 (3.5-5.7) LVIDs 2.5 (2.0-3.5) %FS 37% LVPWd 1.0 (0.6-1.2) Ao Diam 2.4 (2.0-3.7) 2 DIMENSIONAL ASSESSMENT: RIGHT ATRIUM: NORMAL LEFT ATRIUM: NORMAL RIGHT VENTRICLE: NORMAL LEFT VENTRICLE: NORMAL TRICUSPID VALVE: TRACE TRICUSPID REGURGITATION MITRAL VALVE: NORMAL PULMONIC VALVE: MILD PULMONIC INSUFFICIENCY AORTIC VALVE: NORMAL PERICARDIAL EFFUSION: NONE AORTIC ROOT: NORMAL LEFT VENTRICULAR WALL MOTION: NORMAL DOPPLER/COLOR FLOW: SEE BELOW COMMENTS: 1. NORMAL LEFT VENTRICULAR EJECTION FRACTION 60-65% WITH NORMAL WALL MOTION 2. NORMAL DIASTOLIC FUNCTION 3. TRACE TRICUSPID REGURGITATION TECHNOLOGIST: BRETT LERMA
[2024-03-09 07:06] LABS: Absolute Basophils 0.1 K/uL (0-0.5); Absolute Eosinophils 0.1 K/uL (0-0.5); Absolute Lymphocytes (CBC) 3.1 K/uL (0.7-4.9); Absolute Monocytes 0.6 K/uL (0.1-1.3); Absolute Neutrophil 3.6 K/uL (1.8-8.0); Basophils % 0.7 % (0-1.3); Eosinophils % 1.6 % (0-4.4); Hematocrit 41.1 % (36.0-45.0); Hemoglobin 13.6 g/dL (12.0-15.0); Lymphocytes % 41.6 % (15.3-44.8); MCH 29.4 pg (27.0-35.0); MCHC 33.1 g/dL (32.0-36.0); MCV 88.7 fL (80-100); MPV 10.5 fL (7.6-11.3); Monocytes % 7.9 % (3.3-12.3); Neutrophils % 48.2 % (41.7-73.7); Platelets 182 thou/uL (152-406); RBC Red Blood Cell Count 4.63 M/uL (3.86-4.86); Red Cell Distribution Width 14.4 % (12.1-15.2)
[2024-03-09 07:22] LABS: Albumin 3.6 g/dL (3.4-5.0); Albumin/Globulin Ratio 1.1 (1.1-1.8); Anion Gap 10.3 mEq/L (5.0-15.0); Bilirubin Total 0.6 mg/dL (0.2-1.0); Globulin 3.4 g/dL (2.3-3.5); Potassium 3.3 mEq/L (3.5-5.1)
[2024-03-09] MEDS ORDERED: SERTRALINE HCL 100 MG TAB PO SCH (09:00)
[2024-03-09] MEDS: POTASSIUM CL SA 10 MEQ TAB PO ONE (11:05)
--- NOTE | 2024-03-09 12:33 | P.PN ---
Date of Service: 03/09/24 Subjective: ROS: 10 point ROS as noted above, otherwise negative Physical Exam: GEN: Alert, oriented, NAD HEENT: Normal conjunctiva, sclera anicteric CV: Regular rate and rhythm, no edema Pulm: Nonlabored respirations on room air, clear bilaterally ABD: Soft, nontender, nondistended Neuro: Normal speech, normal affect vitals reviewed Problem List: Seizure disorder NSTEMI Anxiety/Depression Seizure disorder Presented with seizure like activity a few hours after smoking delta 9 products. Found by her sister. Unclear how long episode lasted. No prior history of seizures 03/08 patient noted to have tonic-clonic seizure lasting approx 3.5 min per nursing notes. Nonresponsive. Neurology consulted recommend keppra; added 03/08 MRI brain, EEG ordered to further eval no further seizure activity since episode yesterday. continue keppra, topamax PRN ativan NSTEMI asymptomatic. Denies chest pain troponins mildly elevated but trended flat; suspect secondary to seizure activity Echo (03/08): 60-65% EF, normal diastolic function, trace TR Cardiology consulted no further cardiac work up Anxiety/Depression continue home zoloft, propranolol, buspirone VTE: Lovenox Code: Full Dispo: Home, later today vs tomorrow Pending MRI results / neuro recs
--- NOTE | 2024-03-09 13:17 | EKG ---
Test Date: 2024-03-09 Test Time: 02:36:08 [facility]: PARTHA MEASUREMENT RESULTS: Intervals: Rate: 45 [place]: 150 QRSD: 102 QT: 510 QTc: 441 [place]: P: 23 [place]: 150 QRS: 90 T: 56 INTERPRETIVE STATEMENTS: Marked sinus bradycardia Rightward axis Abnormal ECG Compared to ECG 03/07/2024 19:52:51 Right-axis deviation now present Electronically Signed On 03-09-24 13:16:10 CDT by Oscar Sarabia
--- NOTE | 2024-03-09 15:40 | RAD REPORT ---
EXAM DESCRIPTION: MRI - Brain W/Wo Cont - 03/09/2024 1:31 pm CLINICAL HISTORY: Seizure COMPARISON: head CT March 07, 2024 TECHNIQUE: Axial, sagittal, and coronal magnetic images of the brain were obtained. 20 cc MultiHance administered intravenously FINDINGS: No significant abnormal signal within the brain. Hippocampal gyri normal caliber and signa l The ventricles are normal in caliber. Diffusion-weighted/ ADC mapping sequences do not demonstrate evidence of an acute infarction. No abnormal enhancement within the brain is seen. An extra-axial fluid collection is not noted. Fluid within the sinuses/mastoids is not seen IMPRESSION: No acute intracranial abnormality displayed
[2024-03-09 16:49] VITALS: BP 109/71; TEMP 97.6
--- NOTE | 2024-03-09 21:14 | P.DS ---
Admission Date: 03/08/24 Discharge Date: 03/09/24 Disposition: ROUTINE DISCHARGE Discharge Condition: GOOD Reason for Admission: Seizure episode Consultations: Cardiology - Dr. Vee Neuro - Dr. Garduno Brief History of Present Illness: 18 yrs old Female with past medical history of anxiety, depression, presented to ER with complaints of seizure episode . No previous history of seizure disorder Patient presents to the ED with seizure-like activity that occurred few hours after smoking delta 9. The patient does not recall the events. Was found by the sister. Unclear how long the episode lasted for. She is back to her baseline from neurologic standpoint. Reports mild nausea, headache. Denies other acute complaints at this time, symptoms are moderate in severity, no other aggravating or alleviating factors.. Patient was assessed in the ER and was admitted for further management of seizure and also found to have elevated cardiac enzymes Hospital Course: Problem List: Seizure disorder NSTEMI / demand ischemia secondary to seizure Anxiety/Depression Patient presented to ED after an episode of seizure activity. Unclear etiology however suspect secondary to delta 9 as episode occurred a few hours after smoking delta 9 products. Some of her anxiolytic medications can lower seizure threshold as welll, however she reported no recent change in medications/dose. Patient denied any prior history of seizure disorder. Neurology was consulted and recommended adding keppra. No further seizure ac tivity since 03/08. Patient reports compliance with home medications at home. CT head was negative for any acute findings. Discussed with Dr. Garduno, who recommended MRI brain to further evaluate which was without any acute findings. Patient was feeling better, back to normal self, and was deemed stable for discharge. Patients troponins were noted to mildly elevated this hospitalization but cindy nded flat. (peak 293). Echocardiogram this hospitalization with normal EF 60- 65%. Cardiology was consulted and felt elevated troponins were secondary to seizure activity. No further cardiac work up given no chest pain and normal echo. Medications: keppra 500mg twice daily Folow up: PCP 3-5 days Neurology in 2-4 weeks Please call to schedule / confirm appointments Physical Exam: GEN: Alert, oriented, NAD HEENT: Normal conjunctiva, sclera anicteric CV: Regular rate and rhythm, no edema Pulm: Nonlabored respirations on room air, clear bilaterally ABD: Soft, nontender, nondistended Neuro: Normal speech, normal affect Vital Signs/Physical Exam: Temp Pulse Resp BP Pulse Ox 97.6 F 49 L 24 H 109/71 96 03/09/24 16:00 03/09/24 16:00 03/09/24 16:00 03/09/24 16:00 03/09/24 16:00 Laboratory Data at Discharge: WBC 7.40 thou/uL (4.3-10.9) 03/09/24 06:43 Hgb 13.6 g/dL (12.0-15.0) 03/09/24 06:43 Hct 41.1 % (36.0-45.0) 03/09/24 06:43 Plt Count 182 thou/uL (152-406) 03/09/24 06:43 Sodium Cancelled 03/09/24 Unknown Potassium Cancelled 03/09/24 Unknown BUN Cancelled 03/09/24 Unknown Creatinine Cancelled 03/09/24 Unknown Glucose Cancelled 03/09/24 Unknown Phosphorus 3.8 mg/dL (2.5-4.9) 03/08/24 06:12 Magnesium 2.0 mg/dL (1.6-2.4) 03/09/24 06:43 Total Bilirubin Cancelled 03/09/24 Unknown AST Cancelled 03/09/24 Unknown ALT Cancelled 03/09/24 Unknown Alkaline Phosphatase Cancelled 03/09/24 Unknown Home Medications: Buspirone HCl [Buspar] 10 mg PO DAILY 03/08/24 Propranolol HCl 10 mg PO DAILY 03/08/24 Sertraline [Zoloft*] 100 mg PO DAILY 03/08/24 Topiramate [Topamax] 50 mg PO DAILY 03/08/24 levETIRAcetam [Levetiracetam] 500 mg PO BID 30 Days #60 tab 03/09/24 New Medications: levETIRAcetam [Levetiracetam] 500 mg PO BID 30 Days #60 tab Physician Discharge Instructions: Physician discharge instructions: Patient presented to ED after an episode of seizure activity. Unclear etiology however suspect secondary to delta 9 as episode occurred a few hours after smoking delta 9 products. Some of her anxiolytic medications can lower seizure threshold as welll, however she reported no recent change in medications/dose. Patient denied any prior history of seizure disorder. Neurology was consulted and recommended adding keppra. No further seizure activity since 03/08. Patient reports compliance with home medications at home. CT head was negative for any acute findings. Discussed with Dr. Garduno, who recommended MRI brain to further evaluate which was without any acute findings. Patient was feeling better, back to normal self, and was deemed stable for discharge. Patients troponins were noted to mildly elevated this hospitalization but trended flat. (peak 293). Echocardiogram this hospitalization with normal EF 60- 65%. Cardiology was consulted and felt elevated troponins were secondary to seizure activity. No further cardiac work up given no chest pain and normal echo. Medications: keppra 500mg twice daily Folow up: PCP 3-5 days Neurology in 2-4 weeks Please call to schedule / confirm appointments Followup: Damien Garduno MD [ASSOCIATE-ACTIVE - CAN ADMIT] - 1-2 Weeks Wanda Holcomb NP [Primary Care Provider] - Time spent managing pt's care (in minutes): 45
== END 2024-03-09 17:15 | disposition home or self-care (01) | DRG 100 ==
LOC: ER 18:14 → ERHOLD 22:48 → 4TH 23:32 → OBSVTOIN 03-08 11:14
PROVIDERS: ADMIT Family Medicine; ATTEND Hospitalist
DX: R56.9 Unspecified convulsions (principal); I21.A1 Myocardial infarction type 2; F41.9 Anxiety disorder, unspecified; I10 Essential (primary) hypertension; F32.A Depression, unspecified; F19.10 Other psychoactive substance abuse, uncomplicated; D72.829 Elevated white blood cell count, unspecified; F17.200 Nicotine dependence, unspecified, uncomplicated; Z79.899 Other long term (current) drug therapy
CPT/HCPCS: 36415; 70450; 70553; 71045; 80048; 80053; 80076; 80307; 81001; 81003; 82550; 82947; 83735; 84100; 84146; 84484; 84703; 85025; 93005; 93306; 95816; 99285; A9577; G0378; J1650; J1953; J3480; J7120; Q2009